=== PATIENT | female | born 1945 | race Caucasian/White ===

== ENCOUNTER 2019-10-16 09:02 | Outpatient (CLI) | payer MEDICARE, SELFPAY ==
--- NOTE | 2019-10-16 09:12 | EST_ITS ---
Patient Info Name: Carolina Cruz Age: 74 years : 1945 Gender: Female Ht: 62 in Wt: 135 lbs BSA: 1.65 m2 HR: 70 bpm Technical Quality: Good Exam Date: 10/16/2019 9:33 AM Exam Location: [facility] Patient Status: Outpatient Admit Date: 10/16/2019 Staff Ordering Physician: Tiffany Terrazas NP Fur Buyer: Lanie Kohli RDCS Attending Provider: Tiffany Terrazas NP Referring Physician: Mk SORIANO; Exercise Technologist: Khushboo Simons RDCS Exercise Physician: Kenny Tariq DO Exam Type: CA stress echo Study Info Indications R55 - Syncope and collapse Treadmill exercise stress echocardiogram is performed. Summary 1. 1. Negative Kash exercise stress test for ischemic ST changes by ECG criteria. However, achieved only 70% MPHR for age group which reduces sensitivity of the test. 2. 2. Reduced functional capacity, achieving 5 METs of workload. 3. 3. Appropriate HR response to exercise. 4. 4. Appropriate HR recovery at 1 minute post exercise. 5. 5. Negative stress echocardigram for ischemia by wall motion analysis. 6. 6. Patient informed of the above results. Stress Echo Findings Left Ventricle Appropriate increase in LV endocadial thickening with systole. Appropriate augmentation of contractility with systole. No wall motion abnormality. Left Ventricle Normal LV systolic function, no wall motion abnormality. Protocol: Kash Stress ECG Details Stage: REST Duration (min): 7 min : 51 sec Speed (mph): 0.0 Grade (%): 0 HR (bpm): 73 SBP (mmHg): 135 DBP (mmHg): 62 METS: --- Stage: REST Duration (min): 46 min : 6 sec Speed (mph): 0.0 Grade (%): 0 HR (bpm): 91 SBP (mmHg): 135 DBP (mmHg): 62 METS: --- Stage: STAGE 1 Duration (min): 1 min : 0 sec Speed (mph): 1.7 Grade (%): 10 HR (bpm): 91 SBP (mmHg): 135 DBP (mmHg): 62 METS: --- Stage: STAGE 1 Duration (min): 2 min : 0 sec Speed (mph): 1.7 Grade (%): 10 HR (bpm): 94 SBP (mmHg): 135 DBP (mmHg): 62 METS: --- Stage: STAGE 1 Duration (min): 3 min : 0 sec Speed (mph): 1.7 Grade (%): 10 HR (bpm): 93 SBP (mmHg): 125 DBP (mmHg): 67 METS: --- Stage: STAGE 2 Duration (min): 0 min : 22 sec Speed (mph): 0.0 Grade (%): 0 HR (bpm): 99 SBP (mmHg): 125 DBP (mmHg): 67 METS: --- Stage: RECOVERY Duration (min): 0 min : 38 sec Speed (mph): 0.0 Grade (%): 0 HR (bpm): 94 SBP (mmHg): 125 DBP (mmHg): 67 METS: --- Stage: RECOVERY Duration (min): 1 min : 38 sec Speed (mph): 0.0 Grade (%): 0 HR (bpm): 76 SBP (mmHg): 124 DBP (mmHg): 57 METS: --- Stage: RECOVERY Duration (min): 2 min : 38 sec Speed (mph): 0.0 Grade (%): 0 HR (bpm): 75 SBP (mmHg): 124 DBP (mmHg): 57 METS: --- Stage: RECOVERY Duration (min): 3 min : 4 sec Speed (mph): 0.0 Grade (%): 0 HR (bpm): 77 SBP (mmHg): 121 DBP (mmHg): 55 METS: --- Rest
== END 2019-10-16 09:03 | disposition home or self-care (01) ==
LOC: ANHCARD 09:06
PROVIDERS: PCP Family Medicine; Visit Provider Nurse Practitioner
DX: R55 Syncope and collapse (principal)
CPT/HCPCS: 93351

== ENCOUNTER 2020-02-12 12:15 | Observation (INO) | payer MEDICARE, SELFPAY ==
[2020-02-12] VITALS (65 sets, daily range): BP systolic 112–143; BP diastolic 47–108; PULSE 79–128; RESP 13–27; TEMP 36.1–36.9; O2SAT 94–100; BMI 23.1
--- NOTE | ~2020-02-12 | XR_ITS ---
EXAMINATION: XR hip LT 2V w AP pelvis EXAM DATE: 02/12/2020 13:02 INDICATION: Fall, left hip pain. TECHNIQUE: Left hip frontal, 'frog leg' projections for interpretation. Frontal projection pelvis. There is no prior study for comparison. FINDINGS: Smooth left hip femoral head contour, no radiographic evidence of avascular necrosis. Ther e are no acute pelvic, left hip fractures or dislocations identified. There is no subcutaneous gas. The soft tissue is unremarkable. There are no radiopaque foreign bodies. There is mild symmetric bilateral hip primary osteoarthritis. IMPRESSION: No acute osseous findings. Reviewed, dictated and finalized at location B. START TEACHER IMPRESSION: No acute osseous findings.
--- NOTE | ~2020-02-12 | CT_ITS ---
EXAMINATION: CT thoracic lumbar wo con EXAM DATE: 02/12/2020 12:54 INDICATION: Fall, mid and low back pain. TECHNIQUE: Spiral CT thoracolumbar spine was performed without contrast. Axial, coronal and sagittal images of the thoracic spine were reviewed. Axial, coronal and sagittal images of the lumbar spine we re reviewed. The dose-length product (DLP) for this examination was 913.63 mGy-cm. The exposure was tailored according to patient size (auto mA exposure control), and iterative reconstruction (ASIR) wa s used as additional dose reduction technique. There is no prior study for comparison. FINDINGS: THORACIC SPINE: Minimal thoracolumbar scoliosis. Patient has diffuse idiopathic skeletal hyperostosis (DISH). There are no acute fractures identified. The vertebral bodies are aligned in the AP dimensio n. Mild diffuse thoracic facet arthropathy. There are cholecystectomy clips. LUMBAR SPINE: There is no evidence of acute lumbar fracture. There is no disc space widening or tr aumatic vertebral body subluxation suspected. Paraspinal soft tissue is unremarkable. The vertebral bodies are aligned in the AP dimension. Moderate mid and lower lumbar facet arthropathy. Sacroiliac joints are intact. No spondylolysis. Moderate disc disease at L4-5, mild to moderate at the other abram mbar levels. A detailed level by level evaluation of spondylosis can be added as addendum if requeste d. IMPRESSION: 1. No acute thoracolumbar findings. 2. Mid thoracic diffuse idiopathic skeletal hyperostosis. 3. Up to moderate lumbar spondylosis. Reviewed, dictated and finalized at location B. N WAVE TECHNICIAN
--- NOTE | ~2020-02-12 | XR_ITS ---
EXAMINATION: XR chest 1V portable DATE: 02/12/2020 16:09 INDICATION: Recent falls. Low back pain. TECHNIQUE: A single frontal view of the chest was obtained. COMPARISON: CT 02/12/20 FINDINGS: The chest demonstrates clear lungs without pneumonia, pleural effusion, or pneumothorax. Th e heart size is normal. Surgical clips in the right upper quadrant are likely from cholecystectomy. IMPRESSION: 1. No acute cardiopulmonary disease. Reviewed, dictated and finalized at location A. TRICAL SYSTEMS DESIGN ENGINEER
--- NOTE | ~2020-02-12 | XR_ITS ---
EXAMINATION: XR wrist LT 2V DATE: 02/13/2020 10:12 INDICATION: Left wrist pain. Fall 6 days ago. TECHNIQUE: 2 views of left wrist were obtained. COMPARISON: None. FINDINGS: Bone alignment is normal. No fracture. There is mild osteoarthritis of first carpometacarpa l joint and first interphalangeal joint. IMPRESSION: 1. Mild polyarticular osteoarthritis. Reviewed, dictated and finalized at location A. MAKER
--- NOTE | ~2020-02-12 | US_ITS ---
EXAMINATION: US venous doppler UE DATE: 02/15/2020 11:30 INDICATION: Left upper limb swelling TECHNIQUE: Grayscale images without and with compression and Doppler images of the left upper extremi ty veins were obtained. COMPARISON: None. FINDINGS: There is noncompressible thrombus filling the left cephalic vein at the distal upper arm and proximal forearm the cephalic vein at the proximal upper arm and mid forearm remain patent and compressible. The left internal jugular vein, subclavian vein, axillary vein, brachial vein, basilic vein, radial vein, and ulnar vein are patent. IMPRESSION: 1. Thrombosis of the left cephalic vein both immediately above and below the elbow Findings were disc ussed with Elisabeth, the nurse caring for the patient, at 11:35 AM. Reviewed, dictated and finalized at location A. [employer] IMPRESSION: 1. Thrombosis of the left cephalic vein both immediately above and below the el bow Findings were discussed with Elisabeth, the nurse caring for the patient, at 11 :35 AM.
--- NOTE | ~2020-02-12 | CT_ITS ---
EXAMINATION: CT brain wo con EXAM DATE: 02/12/2020 12:54 INDICATION: Syncope. Fall. TECHNIQUE: Spiral CT of the head was performed without contrast. Axial, coronal and sagittal images were reviewed. The dose-length product (DLP) for this examination was 605.33 mGy-cm. The exposure w as tailored according to patient size, and iterative reconstruction (ASIR) was used as additional dos e reduction technique. There is no prior study for comparison. FINDINGS: There is no acute intraparenchymal hemorrhage. No evidence of intraparenchymal brain mass lesion. No evidence of acute infarction. Please note that initial head CT has limited sensitivity f or small or acute infarctions. There is moderate periventricular and subcortical hypodensity, nonspec ific but probably related to small vessel ischemic disease. There is mild prominence of the sulci a nd ventricles related to cerebral atrophy. There is intracranial carotid arteriosclerosis. There a re no extra-axial collections. There is no mass effect or midline shift. The orbits are unremarkabl e. Soft tissue is unremarkable. The visualized sinuses and mastoid air cells are well aerated. Sm all calcified meningioma overlying the right frontal lobe. IMPRESSION: 1. No acute intracranial findings. 2. Chronic age related findings. . Reviewed, dictated and finalized at location B. NG EXAMINER
--- NOTE | ~2020-02-12 | XR_ITS ---
EXAMINATION: XR hip RT 1V INDICATION: Right hip pain after fall TECHNIQUE: Single AP view of the right hip is obtained. COMPARISON: 02/12/2020 FINDINGS: Bone alignment is normal. No fracture is identified. The soft tissues are unremarkable. IMPRESSION: 1. No evidence of displaced rib fracture on this limited single view examination. Reviewed, dictated and finalized at location A. LSTERY SEWER IMPRESSION: 1. No evidence of displaced rib fracture on this limited single view examjeanine alicea
--- NOTE | ~2020-02-12 | XR_ITS ---
EXAMINATION: XR ankle LT 2V DATE: 02/15/2020 14:21 INDICATION: Left ankle pain. Fall. TECHNIQUE: 2 views of left ankle were obtained. COMPARISON: None. FINDINGS: Bone alignment is normal. No fracture. There is mild ankle joint osteoarthritis. There are enthesophytes at the posterior and plantar aspects of calcaneal tuberosity. Ankle soft tissue swellin g is noted. IMPRESSION: 1. Mild ankle joint osteoarthritis. Reviewed, dictated and finalized at location B. ITY BAGGER
--- NOTE | 2020-02-12 12:34 | ECG_ITS ---
Measurements Intervals [place] Rate: 104 P: -28 IN: 124 QRS: 69 QRSD: 92 T: 7 QT: 345 QTc: 456 Interpretive Statements SINUS TACHYCARDIA MINIMAL Q WAVES- INFERIOR LEADS BORDERLINE ST-T WAVE ABNORMALITY- INFERIOR LEADS BASELINE WANDER- I, AVL, AVF, V5 BORDERLINE ECG Electronically Signed On 02-12-2020 15:48:32 FUNDS DEVELOPMENT DIRECTOR by Kenny Tariq D.O.
--- NOTE | 2020-02-12 12:35 | ED.FALL ---
HPI - Fall General Chief Complaint: Fall Stated Complaint: right hip pain Time Seen by Provider: 02/12/20 12:26 Source: patient Mode of arrival: EMS Limitations: no limitations History of Present Illness HPI Narrative: Patient is a 74-year-old female brought in by EMS after being found on the floor by daughter. Patient states that she had a ground-level fall 3 days ago and was unable to get up, had been laying on the floor since then until she was found by her daughter. Patient states that she could have passed out and fell, she cannot recall. Patient complaining of mid back pain which she states is nothing new. Patient also complaining of left hip pain. Patient denies any head, neck, chest, abdomen or any other extremity pain/injury. Related Data Home Medications Medication Instructions Recorded Confirmed levothyroxine 25 mcg tablet 37.5 mcg PO DAILY tablet 01/25/20 01/25/20 Allergies Allergy/AdvReac Type Severity Reaction Status Date / Time No Known Allergies Allergy Unverified 01/25/20 15:18 Review of Systems Review of Systems: All systems reviewed & are unremarkable except as noted in HPI and below Constitutional: Constitutional: Denies body ache(s), Denies chills, Denies excessive sweating, Denies fatigue, Denies fever(s), Denies headache(s), Denies lethargy and Denies weight loss Eyes: Eyes: Denies blurry vision, Denies change in vision and Denies loss of vision ENT: Denies dizziness, Denies ear discharge, Denies headache(s), Denies lip swelling, Denies epistaxis, Denies nasal congestion, Denies neck pain, Denies throat swelling and Denies tongue swelling Cardiovascular: Cardiovascular: Denies chest pain, Denies chest pain at rest, Denies chest pain with activity, Denies diaphoresis, Denies rapid heart rate, Denies edema, Denies irregular heart rhythm, Denies lightheadedness, Denies palpitations, Denies dyspnea and Denies dyspnea on exertion Respiratory: Respiratory: Denies chest congestion, Denies cough, Denies hemoptysis, Denies dyspnea and Denies dyspnea on exertion Gastrointestinal: Gastrointestinal: Denies abdominal pain, Denies melena, Denies hematochezia, Denies diarrhea, Denies nausea, Denies vomiting and Denies hematemesis Musculoskeletal: Musculoskeletal: Denies abnormal gait, Denies deformity, Denies joint swelling, Denies limited range of motion, Denies neck pain and Denies numbness Neurologic: Denies Abnormal speech present, Denies abnormal gait, Denies confusion, Denies dizziness, Denies headache(s), Denies focal weakness, Denies loss of vision, Denies numbness, Denies Other visual disturbances and Denies Sensory deficit (Neuro) Psychiatric: Psychiatric: Denies confusion, Denies depression, Denies auditory hallucinations, Denies homicidal ideation and Denies suicidal ideation Endocrine: Endocrine: Denies cold intolerance, Denies excessive sweating, Denies fatigue, Denies heat intolerance and Denies palpitations Hematologic/Lymphatic: Hematologic/Lymphatic: Denies easy bleeding and Denies easy bruising Allergic/Immunologic: Allergic/Immunologic: Denies lip swelling, Denies throat swelling and Denies tongue swelling PMFSH Past Medical History Medical History (Updated 02/12/20 @ 17:13 by Dirk Anne MD) 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
[2020-02-12] MEDS: SODIUM CHLORIDE 0.9% IV 1,000 ML 999 ML IV CONT (13:00)
--- NOTE | 2020-02-12 13:14 | PC.NURSE ---
patient back from CT. EKG done.
[2020-02-12 13:49] LABS: Basophils Percent Auto 0.2 % (0.2-1.2); Eosinophils Percent Auto 0.1 % (0-4.4); Hematocrit 36.8 % (37.0-47.0); Hemoglobin 11.3 g/dL (12.0-15.0); Immature Granulocyte Absolute 0.16 K/mm3 (0.00-0.031); Immature Granulocyte Percent A 0.7 % (0-0.5); Lymphocytes Absolute Auto 0.89 K/mm3 (0.9-3.2); Lymphocytes Percent Auto 3.7 % (18.3-44.2); Mean Corpuscular HGB Conc 30.7 g/dl (32-36); Mean Corpuscular Hemoglobin 24.7 pg (26-34); Mean Corpuscular Volume 80.3 fl (80-100); Mean Platelet Volume 9.2 fl (7.4-10.4); Monocytes Absolute Auto 0.8 K/mm3 (0.1-0.6); Monocytes Percent Auto 3.5 % (2.6-8.5); Neutrophils Absolute Auto 22.1 K/mm3 (1.3-6.7); Neutrophils Percent Auto 91.8 % (45.5-73.1); Platelet Count Result 485 k/mm3 (150-375); Red Blood Count 4.58 M/mm3 (4.2-5.4); Red Cell Distribution Width 14.8 % (11.5-14.5); White Blood Count 24.1 K/mm3 (4.5-10.0)
[2020-02-12 13:58] LABS: INR 1.3; Prothrombin Time 16.6 Seconds (11.1-14.7)
[2020-02-12 13:59] LABS: Alanine Aminotransferase 11 U/L (4-35); Albumin Level 3.4 g/dL (3.5-5.1); Alkaline Phosphatase 110 U/L (38-126); Anion Gap 10 mmol/L (8-16); Aspartate Amino Transferase 15 U/L (14-36); Bilirubin,Total 0.4 mg/dL (0.2-1.3); Blood Urea Nitrogen 25 mg/dL (7-17); Calcium 8.6 mg/dL (8.4-10.2); Carbon Dioxide 27 mmol/L (22-30); Chloride 103 mmol/L (98-107); Creatine Kinase 47 U/L (30-135); Estimated CRCL calculation 54 ml/min; Estimated Glomerular Filt Rate > 60; Glucose 113 mg/dL (65-105); Partial Thromboplastin Time 46.1 SECONDS (22.3-36.8); Potassium 3.7 mmol/L (3.4-5.0); Sodium 140 mmol/L (137-145)
[2020-02-12 14:11] LABS: Troponin I < 0.012 ng/mL (0.000-0.034)
[2020-02-12 14:13] LABS: Add Urine Microscopic? YES; Appearance Urine Cloudy (Clear); Bacteria Urine Trace /hpf; Bilirubin Urine Negative (Negative); Blood Urine Negative (Negative); Color Urine Yellow (Yellow); Glucose Urine UA Negative (Negative); Ketones Urine 2+ mg/dL (Negative); Leukocyte Esterase Ur Negative LEU/UL (Negative); Mucus Urine Heavy /lpf; Nitrate Urine Negative (Negative); Protein Urine 2+ mg/dL (Negative); Squamous Epithelial Cell Urine Rare /hpf (Few)
[2020-02-12 14:14] LABS: Specific Grav Ur 1.033 (1.001-1.035)
--- NOTE | 2020-02-12 19:40 | PC.NURSE ---
resting on stretcher. some confusion at times. reoriented. ice water and jose crackers given.
--- NOTE | 2020-02-12 20:11 | PC.NURSE ---
patient has bed assigned upstairs. will call to give report.
--- NOTE | 2020-02-12 20:23 | PC.NURSE ---
report given to RN on 2nd floor. patient transferred to 250 via stretcher and medical coding technician.
--- NOTE | 2020-02-12 20:43 | ADMGEN ---
This patient, Carolina Cruz, was admitted to Medical Room 250-01. Patient/family oriented to hospital policies and general routines including ID bracelet, bed and alarms, visiting hours, pain management, procedures, bathroom and other care routines, personal items, smoking policy, room service/diet, and visiting hours. Information on how to activate the Rapid Response Team has been discussed. Patient/Family are encouraged to report perceived risks to care and to ask questions if they do not understand what they are told or what they should do.
[2020-02-12] MEDS: LACTATED RINGERS 1,000 ML 90 ML IV CONT (20:54)
--- NOTE | 2020-02-12 23:41 | PM.IMHP ---
H&P: HPI History of Present Illness Date/Time: 02/12/20 23:41 Chief complaint: SYNCOPE Narrative: Carolina Cruz is a 74 year old female who has a history of dementia and lives home alone. She tells me that her daughter lives next door and typically helps her out but her daughter has been under the weather for the last week. She stated that the daughter has the flu that is been going around every is getting. The patient tells me that she herself is not sick. She denies any fever chills. She is able to give a little bit of a history but not a lot she is a poor historian. Having a history of having dementia and is aware of most of her medicine but was not sure about the Aricept. The patient was brought into the emergency room via EMS because the patient was found on the floor by her daughter. The patient stated that she had a ground level fall about 3 days ago was not able to get up. She had been lying on the floor since then since she could not be found by others. She does not have a cellphone that she carries with her or on-call alert. The patient was complaining of some mid lower back pain but she states that this is chronic. She is complaining of left hip pain when she was in the emergency room but when I saw her she was complaining of right hip pain. She has not been able to eat or drink are take her medications. She did not take anything for the discomfort. CK was only 47 and troponin was negative. The patient appears to be dehydrated and was started on IV fluids. Patient was empirically started on Rocephin for possible UTI. No nitrates. Leukocyte esterase negative. Chest x-ray was read as no acute cardiopulmonary disease. Read as no acute osseous findings. No acute thoracolumbar findings. Midthoracic diffuse idiopathic skeletal hyper ptosis. Up to moderate lumbar spondylosis. Head CT was read as no acute intracranial findings chronic age-related findings per Radiology. Patient admitted for observation 02/12/2020 Review of Systems Review of Systems: ROS unobtainable: Yes unobtainable due to mental status (She is a poor historian) Constitutional: Constitutional: Reports as per HPI and Reports no additional constitutional complaints Eyes: Eyes: Reports as per HPI and Reports no additional eye complaints ENT: Reports system reviewed and no additional complaints, except as documented and Reports Normal hearing present Cardiovascular: Cardiovascular: Reports no additional cardiovascular complaints Respiratory: Respiratory: Reports no additional respiratory complaints and Reports no additional respiratory complaints Gastrointestinal: Gastrointestinal: Reports as per HPI and Reports no additional gastrointestinal complaints Musculoskeletal: Musculoskeletal: Reports no additional musculoskeletal complaints Integumentary/Breasts: Skin/Breast: Reports system reviewed and no additional complaints, except as docu and Reports as per HPI Neurologic: Reports system reviewed and no additional complaints, except as documented, Reports as per HPI and Reports Normal hearing present Psychiatric: Psychiatric: Reports no additional psychiatric complaints and Reports as per HPI Endocrine: Endocrine: Reports no additional endocrine complaints Hematologic/Lymphatic: Hematologic/Lymphatic: Reports no additional hematologic/lymphatic complaints Allergic/Immunologic: Allergic/Immunologic: Reports no additional allergic/immunologic complaints [facility] Past Medical History Medical History (Updated 02/13/20 @ 00:00 by Beti Purcell NP) 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
[2020-02-13] VITALS (8 sets, daily range): BP systolic 120–135; BP diastolic 50–60; PULSE 81–94; RESP 16–18; TEMP 36.2–37; O2SAT 98–99
[2020-02-13] MEDS: LEVOTHYROXINE SODIUM 12.5 MCG TABLET PO (05:57)
[2020-02-13] MEDS: ACETAMINOPHEN 325 MG TABLET 650 MG PO ×2 (06:01→16:53)
[2020-02-13] MEDS: LEVOTHYROXINE SODIUM 25 MCG TABLET PO (06:05)
[2020-02-13 06:15] LABS: Basophils Percent Auto 0.1 % (0.2-1.2); Eosinophils Absolute Auto 0.1 K/mm3 (0-0.3); Eosinophils Percent Auto 0.7 % (0-4.4); Hematocrit 32.8 % (37.0-47.0); Immature Granulocyte Absolute 0.14 K/mm3 (0.00-0.031); Immature Granulocyte Percent A 0.9 % (0-0.5); Lymphocytes Absolute Auto 1.38 K/mm3 (0.9-3.2); Lymphocytes Percent Auto 8.5 % (18.3-44.2); Mean Corpuscular HGB Conc 30.5 g/dl (32-36); Mean Corpuscular Hemoglobin 24.9 pg (26-34); Mean Corpuscular Volume 81.6 fl (80-100); Mean Platelet Volume 9.1 fl (7.4-10.4); Monocytes Absolute Auto 0.9 K/mm3 (0.1-0.6); Monocytes Percent Auto 5.3 % (2.6-8.5); Neutrophils Absolute Auto 13.6 K/mm3 (1.3-6.7); Neutrophils Percent Auto 84.5 % (45.5-73.1); Platelet Count Result 423 k/mm3 (150-375); Red Blood Count 4.02 M/mm3 (4.2-5.4); Red Cell Distribution Width 14.7 % (11.5-14.5); White Blood Count 16.2 K/mm3 (4.5-10.0)
[2020-02-13 06:47] LABS: Alanine Aminotransferase 10 U/L (4-35); Albumin Level 2.9 g/dL (3.5-5.1); Alkaline Phosphatase 95 U/L (38-126); Aspartate Amino Transferase 18 U/L (14-36); Bilirubin,Total 0.3 mg/dL (0.2-1.3); Blood Urea Nitrogen 16 mg/dL (7-17); Calcium 8.3 mg/dL (8.4-10.2); Carbon Dioxide 27 mmol/L (22-30); Creatine Kinase 91 U/L (30-135); Estimated CRCL calculation 63 ml/min; Estimated Glomerular Filt Rate > 60; Glucose 100 mg/dL (65-105); Magnesium 2.2 mg/dL (1.6-2.3)
[2020-02-13 07:17] LABS: Anion Gap 6 mmol/L (8-16); CRP 25.2 mg/dL (<1.0); Chloride 105 mmol/L (98-107); Potassium 3.6 mmol/L (3.4-5.0); Sodium 138 mmol/L (137-145)
[2020-02-13] MEDS: LACTATED RINGERS 1,000 ML 90 ML IV CONT ×2 (08:03→20:56)
[2020-02-13] MEDS: PANTOPRAZOLE 40 MG TABLET PO ×2 (08:07→16:46)
[2020-02-13] MEDS: DONEPEZIL HCL 5 MG TABLET PO (08:07)
[2020-02-13] MEDS: LORATADINE 10 MG TABLET PO (08:07)
[2020-02-13 08:47] LABS: Glucose Point of Care 89 (65-105)
[2020-02-13] MEDS: FERROUS SULFATE LIQUID 325 MG/7.4 ML ELIXIR 150 MG PO (09:13)
--- NOTE | 2020-02-13 09:51 | PM.IMPN ---
Progress Note: A&P Assessment and Plan (1) Fall: Qualifiers: Encounter type: initial encounter Qualified Code(s): W19.XXXA - Unspecified fall, initial encounter Code(s): W19.XXXA - Unspecified fall, initial encounter Status: Acute Assessment and Plan: Patient was found down on the ground by her daughter. The patient reported being on the ground for 3 days. She is unable to recall the mechanics of this fall. She denies any symptoms prior to falling. CK is within normal limits. Head CT negative for any acute findings. She complained of bilateral hip pain, however left hip and pelvis x-ray and right hip x-ray were negative for any acute findings. Fall precautions in place Left wrist x-ray has been ordered due to complaints of left wrist pain and slight dorsal angulation and is pending PT and OT to evaluate patient; input is appreciated. (2) Generalized weakness: Code(s): R53.1 - Weakness Status: Acute Assessment and Plan: Likely due to overall deconditioning. More than likely contributed to fall as above. TSH is within normal limits. PT and OT as above Care coordination is following for possible SNF placement. Check B12 and folate (3) Dementia: Code(s): F03.90 - Unspecified dementia without behavioral disturbance Status: Chronic Assessment and Plan: Patient is pleasantly confused. Continue donepezil (4) GERD without esophagitis: Code(s): K21.9 - Gastro-esophageal reflux disease without esophagitis Status: Chronic Assessment and Plan: No symptoms at this time Continue omeprazole. (5) Essential (primary) hypertension: Code(s): I10 - Essential (primary) hypertension Status: Chronic Assessment and Plan: BP reviewed and is stable at 133/50. She is not on any antihypertensives. Monitor BP daily. (6) Hypothyroid: Code(s): E03.9 - Hypothyroidism, unspecified Status: Chronic Assessment and Plan: TSH is wnl. Continue levothyroxine (7) Leukocytosis: Qualifiers: Leukocytosis type: unspecified Qualified Code(s): D72.829 - Elevated white blood cell count, unspecified Code(s): D72.829 - Elevated white blood cell count, unspecified Status: Acute Assessment and Plan: At presentation, WBC was 24.1. This may be reactive secondary to trauma from fall. There was concern for UTI although UA was not very convincing. She received 1x dose IV Rocephin on 02/12/20. She is afebrile. No other signs or symptoms to suggest infection. No steroids. WBC improved to 16.2 today. Urine culture has been ordered and is pending. Monitor CBC with diff. Subjective Date/time seen: 02/13/20 09:51 Interval history: date of service: 02/13/2020 Carolina Cruz is a 74 year old female with a history of dementia, HTN, HLD, and hypothyroidism is seen in follow-up after suffering a fall at home. She is quite forgetful and is difficult to obtain a thorough history. She is unclear where she fell or the mechanics of the fall. She does not recall having any symptoms prior to falling. She is complaining of pain in her legs, but states that that is chronic. She had point tenderness of the left wrist when palpated. Yesterday she was noted to have point tenderness of the bilateral hips, but this is not noted today. She denies any hip pain. She has not been up yet. She was beginning therapy following my visit. She denies headache. She denies nausea, vomiting, fever, chills, abdominal pain, dizziness, lightheadedness, dysuria, hematuria, suprapubic discomfort, urgency, frequency, constipation, or diarrhea. Her appetite has been good and she ate a good breakfast this morning. She is not able to recall why she is here in the hospital. Review of Systems Review of Systems: All systems reviewed & are unremarkable except as noted in HPI and below
[2020-02-13 09:57] LABS: Free T4 Free Thyroxine Reflex 1.16 ng/dL (0.78-2.19)
[2020-02-13 10:38] LABS: Total Triiodothyronine (T3) 0.86 NG/ML (0.97-1.69)
[2020-02-13] MEDS: diphenhydrAMINE HCl INJ 50 MG/ML VIAL 25 MG IV PUSH (19:48)
[2020-02-13] MEDS: HYDROcodone/acetaminophen (*CRX) 5-325 MG TABLET 1 TAB PO (20:55)
[2020-02-14] VITALS: PULSE 73
[2020-02-14 04:00] VITALS: PULSE 80
[2020-02-14 05:51] VITALS: BP 107/48; PULSE 86; RESP 16; TEMP 36.7; O2SAT 100
[2020-02-14 06:10] LABS: Basophils Percent Auto 0.2 % (0.2-1.2); Eosinophils Absolute Auto 0.2 K/mm3 (0-0.3); Eosinophils Percent Auto 1.4 % (0-4.4); Hematocrit 31.2 % (37.0-47.0); Hemoglobin 9.7 g/dL (12.0-15.0); Immature Granulocyte Absolute 0.13 K/mm3 (0.00-0.031); Lymphocytes Absolute Auto 1.74 K/mm3 (0.9-3.2); Lymphocytes Percent Auto 13.3 % (18.3-44.2); Mean Corpuscular HGB Conc 31.1 g/dl (32-36); Mean Corpuscular Hemoglobin 25.2 pg (26-34); Mean Platelet Volume 9.6 fl (7.4-10.4); Monocytes Absolute Auto 0.8 K/mm3 (0.1-0.6); Monocytes Percent Auto 6.1 % (2.6-8.5); Neutrophils Absolute Auto 10.2 K/mm3 (1.3-6.7); Platelet Count Result 425 k/mm3 (150-375); Red Blood Count 3.85 M/mm3 (4.2-5.4); Red Cell Distribution Width 14.8 % (11.5-14.5)
[2020-02-14 06:27] LABS: Anion Gap 5 mmol/L (8-16); Blood Urea Nitrogen 13 mg/dL (7-17); Calcium 8.1 mg/dL (8.4-10.2); Carbon Dioxide 31 mmol/L (22-30); Chloride 104 mmol/L (98-107); Creatine Kinase 36 U/L (30-135); Estimated CRCL calculation 54 ml/min; Estimated Glomerular Filt Rate > 60; Glucose 104 mg/dL (65-105); Potassium 3.7 mmol/L (3.4-5.0); Sodium 140 mmol/L (137-145)
[2020-02-14] MEDS: LEVOTHYROXINE SODIUM 12.5 MCG TABLET PO (06:37)
[2020-02-14] MEDS: LEVOTHYROXINE SODIUM 25 MCG TABLET PO (06:37)
[2020-02-14] MEDS: LACTATED RINGERS 1,000 ML 90 ML IV CONT (06:40)
[2020-02-14 07:28] LABS: Folic Acid 3.6 ng/mL (2.76->20)
[2020-02-14] MEDS: DONEPEZIL HCL 5 MG TABLET PO (08:19)
[2020-02-14] MEDS: LORATADINE 10 MG TABLET PO (08:19)
[2020-02-14] MEDS: PANTOPRAZOLE 40 MG TABLET PO ×2 (08:19→16:56)
[2020-02-14] MEDS: FERROUS SULFATE LIQUID 325 MG/7.4 ML ELIXIR 150 MG PO (08:23)
[2020-02-14] MEDS: ACETAMINOPHEN 325 MG TABLET 650 MG PO ×2 (09:58→15:38)
--- NOTE | 2020-02-14 13:26 | PM.IMPN ---
Progress Note: A&P Assessment and Plan (1) Fall: Qualifiers: Encounter type: initial encounter Qualified Code(s): W19.XXXA - Unspecified fall, initial encounter Code(s): W19.XXXA - Unspecified fall, initial encounter Status: Acute Assessment and Plan: Patient was found down on the ground by her daughter. The patient reported being on the ground for 3 days, although this information has not been confirmed. She is unable to recall the mechanics of the fall. She denies any symptoms prior to falling. CK is within normal limits. Head CT negative for any acute findings. She complained of bilateral hip pain, however left hip and pelvis x-ray and right hip x-ray were negative for any acute findings. Left wrist x-ray showed mild OA with no acute findings. Fall precautions in place PT and OT to evaluate patient; input is appreciated. Care coordination is following. It appears that patient and family wish to pursue continued therapy at SNF. Placement pending. (2) Generalized weakness: Code(s): R53.1 - Weakness Status: Acute Assessment and Plan: Likely due to overall deconditioning. More than likely contributed to fall as above. TSH is within normal limits. B12 and folate wnl. PT and OT as above Care coordination is following for possible SNF placement. (3) Dementia: Code(s): F03.90 - Unspecified dementia without behavioral disturbance Status: Chronic Assessment and Plan: Patient is pleasantly confused. A&Ox4 today with some prompting. Continue donepezil (4) GERD without esophagitis: Code(s): K21.9 - Gastro-esophageal reflux disease without esophagitis Status: Chronic Assessment and Plan: No symptoms at this time Continue omeprazole. (5) Essential (primary) hypertension: Code(s): I10 - Essential (primary) hypertension Status: Chronic Assessment and Plan: BP reviewed and is stable at 107/48. She is not on any antihypertensives. Monitor BP daily. (6) Hypothyroid: Code(s): E03.9 - Hypothyroidism, unspecified Status: Chronic Assessment and Plan: TSH is wnl. Continue levothyroxine (7) Leukocytosis: Qualifiers: Leukocytosis type: unspecified Qualified Code(s): D72.829 - Elevated white blood cell count, unspecified Code(s): D72.829 - Elevated white blood cell count, unspecified Status: Acute Assessment and Plan: At presentation, WBC was 24.1. This may be reactive secondary to trauma from fall. There was concern for UTI although UA was not very convincing. She received 1x dose IV Rocephin on 02/12/20. She is afebrile. No other signs or symptoms to suggest infection. No steroids. WBC improved to 13.0 today. Urine culture has been ordered and is pending. Monitor CBC with diff. Additional Plan Patient is being tested for COVID-19 for SNF placement. She is asymptomatic and does not require isolation precautions. Subjective Date/time seen: 02/14/20 13:26 Interval history: Date of service: 02/14/2020 Carolina Cruz is a 74 year old female with a history of dementia, HTN, HLD, and hypothyroidism who is seen in follow-up after suffering a fall at home. She is feeling better today. She complains of mild pain in her right hip. She also has mild left wrist pain. Otherwise, she is feeling well. She has been ambulating with assistance and feels that she is doing well. She denies any urinary symptoms. Her last BM was 2 days ago. Her appetite is good. She received information today that her daughter, who had been caring for her, tested positive for COVID. She has no symptoms of shortness of breath, cough, anosmia, dysguesia, fevers, or chills. Review of Systems Review of Systems: All systems reviewed & are unremarkable except as noted in HPI and below Exam Narrative: Exam Narrative: Ms. Cruz is a well-nourished,
[2020-02-14 14:00] VITALS: BP 113/43; PULSE 80; RESP 16; TEMP 36.3; O2SAT 100
[2020-02-14 21:18] LABS: SARS-CoV-2 RNA PCR Negative
[2020-02-14 22:00] VITALS: BP 128/55; PULSE 84; RESP 16; TEMP 37; O2SAT 99
[2020-02-15 00:53] LABS: SARS-CoV-2 RNA PCR Negative
[2020-02-15 05:35] LABS: Hematocrit 31.3 % (37.0-47.0); Hemoglobin 9.5 g/dL (12.0-15.0); Mean Corpuscular HGB Conc 30.4 g/dl (32-36); Mean Corpuscular Volume 82.4 fl (80-100); Mean Platelet Volume 9.6 fl (7.4-10.4); Platelet Count Result 392 k/mm3 (150-375); White Blood Count 10.6 K/mm3 (4.5-10.0)
[2020-02-15 05:53] LABS: Anion Gap 4 mmol/L (8-16); Blood Urea Nitrogen 11 mg/dL (7-17); Calcium 7.8 mg/dL (8.4-10.2); Carbon Dioxide 32 mmol/L (22-30); Chloride 103 mmol/L (98-107); Estimated CRCL calculation 77 ml/min; Estimated Glomerular Filt Rate > 60; Glucose 100 mg/dL (65-105); Potassium 3.5 mmol/L (3.4-5.0); Sodium 139 mmol/L (137-145)
[2020-02-15 06:00] VITALS: BP 113/53; PULSE 82; RESP 16; TEMP 37.1; O2SAT 97
[2020-02-15] MEDS: LEVOTHYROXINE SODIUM 25 MCG TABLET PO (07:37)
[2020-02-15] MEDS: LEVOTHYROXINE SODIUM 12.5 MCG TABLET PO (07:38)
[2020-02-15] MEDS: HYDROcodone/acetaminophen (*CRX) 5-325 MG TABLET 1 TAB PO ×2 (08:50→16:52)
[2020-02-15] MEDS: LORATADINE 10 MG TABLET PO (08:51)
[2020-02-15] MEDS: PANTOPRAZOLE 40 MG TABLET PO ×2 (08:51→16:52)
[2020-02-15] MEDS: FERROUS SULFATE LIQUID 325 MG/7.4 ML ELIXIR 150 MG PO (08:51)
[2020-02-15] MEDS: DONEPEZIL HCL 5 MG TABLET PO (08:51)
[2020-02-15 09:53] VITALS: O2SAT 93
--- NOTE | 2020-02-15 10:00 | PC.NURSE ---
Notified Nicol AMIN that patient's left arm is pink, warm to touch and very edematous. She states she will assess patient. Also notified her that patient c/o left ankle pain whenever ankle is touched.
[2020-02-15 14:00] VITALS: BP 129/57; PULSE 88; RESP 18; TEMP 36.7; O2SAT 100
[2020-02-15 14:20] VITALS: BP 129/57
--- NOTE | 2020-02-15 15:27 | PM.DS ---
DS: Admitting Diagnosis Admitting Diagnosis Admitting Diagnosis: SYNCOPE DS: Discharge Diagnosis Discharge Diagnosis (1) Fall: Qualifiers: Encounter type: initial encounter Qualified Code(s): W19.XXXA - Unspecified fall, initial encounter Code(s): W19.XXXA - Unspecified fall, initial encounter Status: Acute Assessment and Plan: Patient was found down on the ground by her daughter. The patient reported being on the ground for 3 days, although unclear if this occurred. She was unable to recall the mechanics of the fall. She denied any symptoms prior to falling. CK was within normal limits. Head CT negative for any acute findings. She complained of bilateral hip pain, however left hip and pelvis x-ray and right hip x-ray were negative for any acute findings. Left wrist x-ray showed mild OA with no acute findings. Left ankle x-ray showed soft tissue swelling. Jovi wrap was applied. Fall precautions discussed. She was evaluated by PT and OT and was recommended she continue therapy at [facility]. (2) Generalized weakness: Code(s): R53.1 - Weakness Status: Acute Assessment and Plan: Likely due to overall deconditioning. TSH within normal limits. B12 and folate wnl. Continue therapy at [facility]. (3) Dementia: Code(s): F03.90 - Unspecified dementia without behavioral disturbance Status: Chronic Assessment and Plan: Patient remained pleasantly confused. She was A&Ox4 with prompting but forgetful. She is at baseline per her daughter. Continue donepezil (4) GERD without esophagitis: Code(s): K21.9 - Gastro-esophageal reflux disease without esophagitis Status: Chronic Assessment and Plan: Asymptomatic. Continue omeprazole. (5) Essential (primary) hypertension: Code(s): I10 - Essential (primary) hypertension Status: Chronic Assessment and Plan: BP reviewed daily and remained well controlled. She is not on any antihypertensives. (6) Hypothyroid: Code(s): E03.9 - Hypothyroidism, unspecified Status: Chronic Assessment and Plan: TSH is wnl. Continue levothyroxine (7) Leukocytosis: Qualifiers: Leukocytosis type: unspecified Qualified Code(s): D72.829 - Elevated white blood cell count, unspecified Code(s): D72.829 - Elevated white blood cell count, unspecified Status: Acute Assessment and Plan: At presentation, WBC was 24.1. [place] to be reactive secondary to trauma from fall. There was concern for UTI although UA was unconvincing. She received 1x dose IV Rocephin on 02/12/20. She was afebrile. No other signs or symptoms to suggest infection. No steroids. Declined to 10.6 at time of discharge. (8) Superficial thrombophlebitis: Code(s): I80.9 - Phlebitis and thrombophlebitis of unspecified site Status: Acute Assessment and Plan: Left arm was noted to be edematous, somewhat firm, and slightly warm. Venous Doppler of left upper extremity showed thrombosis of the left cephalic vein immediately above and below the elbow. This may be due to IV access in the left arm placed upon arrival. Warm compresses 3-5 times daily recommended for SNF staff. Careful monitoring of area for progression recommended. Discussed with patient and her daughter. DS: Summary Hospital Course Reason for hospitalization: fall Hospital Course: date of admission: 02/12/2020 date of discharge: 02/15/2020 Carolina Cruz is a 74 year old female with a history of dementia, HTN, HLD, and hypothyroidism who presented to the emergency department on 02/12/2020 after being found down on the floor by her daughter. She complained of left hip pain. She did not believe that she had her head in the fall, although she was not able to recall the mechanics. At presentation, vital signs stable, WBC 24.1, H&H mildly decreased, platelets 485, electrolytes stable, glucose 113, CK
== END 2020-02-15 18:55 ==
LOC: ANHED 17:19 → ANH2MED 20:10
PROVIDERS: Family Medicine; Nurse Practitioner; Admitting Provider Family Medicine; Emergency Provider Emergency Medicine; PCP Family Medicine; Visit Provider Physician Assistant
DX: R53.1 Weakness (principal); W19.XXXA Unspecified fall, initial encounter; R55 Syncope and collapse; E86.0 Dehydration; D72.829 Elevated white blood cell count, unspecified; F03.90 Unspecified dementia, unspecified severity, without behavioral disturbance, psychotic disturbance, mood disturbance, and anxiety; K21.9 Gastro-esophageal reflux disease without esophagitis; I10 Essential (primary) hypertension; E03.9 Hypothyroidism, unspecified; I82.612 Acute embolism and thrombosis of superficial veins of left upper extremity; I80.9 Phlebitis and thrombophlebitis of unspecified site; M25.551 Pain in right hip; E78.5 Hyperlipidemia, unspecified; R73.03 Prediabetes; M48.14 Ankylosing hyperostosis [Forestier], thoracic region; M47.816 Spondylosis without myelopathy or radiculopathy, lumbar region; M54.5 Low back pain; M19.032 Primary osteoarthritis, left wrist; M19.072 Primary osteoarthritis, left ankle and foot; Z20.828 Contact with and (suspected) exposure to other viral communicable diseases
CPT/HCPCS: 36415; 70450; 71045; 72128; 72131; 73100; 73501; 73502; 73600; 80048; 80053; 81001; 82550; 82607; 82746; 83735; 84439; 84443; 84480; 84484; 85025; 85027; 85610; 85730; 86140; 87040; 87086; 87635; 93005; 93971; 96361; 96365; 96366; 96375; 97110; 97116; 97161; 97165; 97530; 97535; 99285; A9270; C9803; G0378; J0696; J1200; J7030; J7120; U0003

== ENCOUNTER 2020-09-26 12:30 | Outpatient (RCR) | payer MEDICARE, SELFPAY ==
--- NOTE | 2020-08-30 10:57 | PTOPEVAL ---
INITIAL PHYSICAL THERAPY EVALUATION and PLAN OF CARE Thank you for referring Carolina Cruz to [facility].? Carolina is scheduled to be seen for physical therapy? 2x/week for 4 weeks. Please review, sign, date and return this plan of care MARIE. I agree with and certify that the following plan of care is medically necessary. Referring Physician Date Admitting Provider: Attending Provider: Bridget Mcfarland NP Referring Provider: SERVANDO Outpatient Evaluation Start: 08/30/20 09:48 Freq: Status: Active Protocol: Document 08/30/20 09:40 RENEA (Rec: 08/30/20 10:57 RENEA [id number]) Therapy Assessment Status Assessment Status Assessment Status Evaluation Outpatient Past Medical History Past Medical History Source of Past Medical History Recalled from Previous Visit, Confirmed with Patient/Family Neurological History Hx Dementia Yes Cardiovascular History Hx Hypercholesterolemia Yes Respiratory History Hx Respiratory Disorders No Significant History Gastrointestinal History Hx Cholecystectomy Yes Genitourinary History Hx Urinary Tract Infection Yes Musculoskeletal History Hx Back Pain Yes Hematological History Hx Hematological Disorders No Significant History Endocrine History Hx Diabetes Yes: pre diabetic per chart Hx Hypothyroidism Yes HEENT History Hx Other HEENT Disorders Yes: hearing loss Integumentary History Hx Skin Disorders No Significant History Reproductive History Hx Reproductive Disorders No Significant History Psychosocial History Hx Psychiatric Disorders No Significant History Pain History History of Any Previous or Ongoing No Significant History Instance of Pain Anesthesia History Hx Anesthesia Reactions No Significant History Evaluation Information Problem Diagnosis unsteadiness on feet, weakness Additional Evaluation Detail Fall early February Subjective Information After fall - went to [facility] Query Text:As Reported By Patient/ Hospital, discharged to Family [facility] then home early March - Home health was never set up - came home in a wheelchair - daughter doesn't know why Question of possible dizziness prior to the fall. 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
--- NOTE | 2020-10-05 12:17 | PCPTNOTE ---
Patient's daughter called & cancelled scheduled appointment this date due to having difficulty in getting her mother to come in for re-evaluation appointment. Will d/c pt from PT at this time.
--- NOTE | 2020-10-05 12:19 | PCPTNOTE ---
PHYSICAL THERAPY DISCHARGE SUMMARY Admitting Provider: Attending Provider: Bridget Mcfarland NP Patient:Carolina Cruz Date of :1945 Carolina has not returned for any further treatments since 09/26/2020. She had rescheduled and then today cancelled her re-evaluation appointment, therefore she will be discharged at this time. Carolina?s initial visit was on 08/30/2020 09:30 and she had a total of 5 visits. The goals have been partially met. Thank you for referring Carolina to [facility]. Please review, sign, date and return this discharge summary MARIE. I have been updated about Carolina's current status and I agree with discharge from the above service at this time. Referring Physician Date
== END 2020-10-06 17:06 | disposition home or self-care (01) ==
LOC: ANHPT 12:30
PROVIDERS: PCP Family Medicine; Visit Provider Nurse Practitioner Family
DX: R26.81 Unsteadiness on feet (principal); R53.1 Weakness
CPT/HCPCS: 97110; 97162

== ENCOUNTER 2021-06-22 08:42 | Inpatient (IN) | payer MEDICARE, SELFPAY ==
--- NOTE | ~2021-06-22 | XR_ITS ---
EXAMINATION: XR chest 1V portable 06/22/2021 10:16 INDICATION: Confusion. Hypertension. Weakness. PROCEDURE: AP portable chest COMPARISON: 02/12/2020 FINDINGS: The lungs are clear. The cardiomediastinal silhouette is within normal limits. There are no pleural effusions. There is no pneumothorax suspected. IMPRESSION: 1: NO ACUTE CARDIOPULMONARY DISEASE. Reviewed, dictated and finalized at location B.
--- NOTE | ~2021-06-22 | XR_ITS ---
EXAMINATION: XR ankle RT min 3V INDICATION: Right ankle pain TECHNIQUE: Four views of the right ankle are obtained. COMPARISON: None available FINDINGS: The bones are osteopenic which limits the sensitivity for fracture however none is seen. Vic ne alignment is normal. Posterior and plantar calcaneal enthesophytes are noted. IMPRESSION: 1. No acute osseous abnormality, sensitivity limited by osteopenia.. Reviewed, dictated and finalized at location B.
--- NOTE | ~2021-06-22 | CT_ITS ---
EXAMINATION: CT brain wo con DATE: 06/22/2021 09:55 INDICATION: Increased confusion TECHNIQUE: Computed tomography (CT) of the head was performed without intravenous contrast. The dose- length product was 605.33 mGy-cm. COMPARISON: CT dated 02/12/2020 FINDINGS: There are scattered moderate periventricular and subcortical white matter changes, most lik caroline related to small vessel ischemic disease (microangiopathy). Mild generalized atrophy. No acute in tracranial hemorrhage, infarction, mass or mass effect. Paranasal sinuses and mastoids are pneumatize d. No depressed skull fractures. IMPRESSION: 1. No acute intracranial abnormality. 2: Chronic age-related findings. Reviewed, dictated and finalized at location B.
--- NOTE | ~2021-06-22 | CT_ITS ---
EXAMINATION: CT abdomen pelvis wo con DATE: 06/27/2021 11:43 INDICATION: Urinary tract infection with worsening leukocytosis TECHNIQUE: Computed tomography (CT) of the abdomen and pelvis was performed without intravenous contr ast. Automated exposure control and iterative reconstruction technique were employed. The dose-length product was 259.32 mGy-cm. COMPARISON: None FINDINGS: Small posterior layering left pleural effusion with mild dependent atelectasis in the left lower lobe . Mild cardiomegaly. Small to moderate-sized pericardial effusion. Cholecystectomy clips the gallblad vita fossa. Liver, spleen, pancreas, bilateral adrenal glands and kidneys are normal. No urolithiasis or perinephric stranding. Bladder, retroverted uterus and bilateral adnexa are unremarkable. Small wei wel and appendix are normal. There are a few colonic diverticula without adjacent inflammatory change to suggest diverticulitis. No free intraperitoneal gas or fluid. No pathologically enlarged abdomina l or pelvic lymphadenopathy. Moderate lumbar spondylosis. IMPRESSION: 1. No acute intra-abdominal/pelvic process. 2. Small posterior layering left pleural effusion. 3. Mild cardiomegaly with small to moderate pericardial effusion. Reviewed, dictated and finalized at location A.
--- NOTE | ~2021-06-22 | XR_ITS ---
XR hip LT 2V w AP pelvis 06/25/2021 09:01 Indication: Left hip pain after fall Procedure: 3 views left hip Comparison: 02/12/2020 Findings: Pelvic rings are intact. No fracture, subluxation or dislocation. No significant soft tissu e abnormality. No foreign body. Impression: 1: No acute fracture. Reviewed, dictated and finalized at location A. Impression: 1: No acute fracture.
--- NOTE | ~2021-06-22 | XR_ITS ---
XR_[id number]_CR DATE: 07/05/2021 12:33 INDICATION: Pleural effusion TECHNIQUE: AP chest following 300 CC left pleural effusion evacuation by left-sided ultrasound-guided thoracentesis earlier today COMPARISON: 07/05/2021 ultrasound-guided left thoracentesis 07/03/2021 CTA chest abdomen pelvis FINDINGS: There is opacification lower half of left hemithorax likely due to combination of atelectas is, with some air bronchograms, in addition to moderately large left pleural effusion and possibly so me elevation of left diaphragm. No pneumothorax. Small right pleural effusion. There is enlargement of cardiac silhouette due to pericardial effusion noted on 06/25/2021 CT thorax e xamination.. Aortic atherosclerosis. Prominent osteoarthritic change at both glenohumeral joints. Degenerative spurring of the thoracic spine. Diffuse osteopenia.. IMPRESSION: Moderate residual left pleural effusion and infiltrate/atelectasis in the left mid and lo wer lung zones No evidence of left pneumothorax following left ultrasound-guided thoracentesis today Minimal right pleural effusion Pericardial effusion Reviewed, dictated and finalized at Location A. Reviewed, dictated and finalized at location A. IMPRESSION: Moderate residual left pleural effusion and infiltrate/atelectasis in the left mid and lower lung zones No evidence of left pneumothorax following left ultrasound-guided thoracentesis today Minimal right pleural effusion Pericardial effusion
--- NOTE | ~2021-06-22 | US_ITS ---
EXAMINATION: US thoracentesis DATE: 07/05/2021 12:45 INDICATION: Left pleural effusion TECHNIQUE: The procedure and its risks and benefits were discussed with the patient. Potential risks discussed included bleeding, infection, and pneumothorax. The patient understood the risks and agreed to proceed. The skin was prepped and draped in sterile fashion. 1% lidocaine was used for local anes thesia. Under ultrasound guidance, a 5 Fr catheter with trochar was advanced into the left pleural ef fusion. Fluid was aspirated until the patient began to experience some central chest pain with inspir ation at which point the procedure was terminated. The catheter was removed, and a dressing was appli ed. There were no immediate complications. FINDINGS: Ultrasound images demonstrate a sized left pleural effusion and the catheter within the fluid. IMPRESSION: 1. Successful ultrasound-guided thoracentesis yielding 300 mL of clear light yellow fluid. Reviewed, dictated and finalized at location A. IMPRESSION: 1. Successful ultrasound-guided thoracentesis yielding 300 mL of clear light y ellow fluid.
--- NOTE | ~2021-06-22 | US_ITS ---
EXAMINATION: US venous doppler [facility] DATE: 06/30/2021 14:14 INDICATION: Bilateral lower limb pain TECHNIQUE: Phipps scale images without and with compression and Doppler images of the bilateral lower e xtremity veins were obtained. COMPARISON: None FINDINGS: The right common femoral vein, profunda femoral vein, femoral vein, popliteal vein, peroneal trunk, p osterior tibial veins, and greater saphenous vein are patent. The left common femoral vein, profunda femoral vein, femoral vein, popliteal vein, peroneal trunk, po sterior tibial veins, and greater saphenous vein are patent. IMPRESSION: 1. Patent bilateral lower extremity veins. No evidence of deep venous thrombosis. Reviewed, dictated and finalized at location B. IMPRESSION: 1. Patent bilateral lower extremity veins. No evidence of deep venous thrombosi s.
--- NOTE | ~2021-06-22 | CT_ITS ---
EXAMINATION: CT chest abdomen pelvis wo con DATE: 07/03/2021 17:25 INDICATION: Leukocytosis. Recent Covid infection. Urinary tract infection. TECHNIQUE: Computed tomography (CT) of the chest, abdomen, and pelvis was performed without intraveno us contrast. Automated exposure control and iterative reconstruction technique were employed. Exam do se: 331.93 mGy-cm total exam DLP. COMPARISON: 06/27/2021 CT abdomen pelvis noncontrast examination 06/22/2021 portable AP chest FINDINGS: CHEST CT: There is moderate pericardial effusion. There is moderately large left pleural effusion and smaller r ight pleural effusion. Diminished density of blood pool suggests anemia. No thoracic aortic aneurysm. Coronary artery calcification. Aortic calcification. Bilateral axillary lymph node prominence, right axillary lymph nodes measuring up to 7.5 x 15 mm, lef t axillary lymph nodes measuring up to 9 x 18 mm. Shotty superior mediastinal, right paratracheal, pr evascular lymph nodes. There is prominent left lower lobe compressive atelectasis and lesser right lower lobe compressive at electasis. There is discoid atelectasis the lingula. ABDOMEN/PELVIS CT: Status post cholecystectomy. No hepatic, splenic, pancreatic or adrenal space-occupying mass lesion i s evident on this limited noncontrast examination. No bile duct or pancreatic duct dilatation. No renal mass lesion or urinary tract calculus or hydroureteronephrosis is detected. The urinary blad vita is relatively evacuated, unremarkable. Retroverted uterus. Normal caliber of the abdominal aorta. No intraperitoneal or retroperitoneal or pelvic mass lesion or adenopathy is evident. There is thickening of the anterior pararenal fascia in the right lower quadrant; differential diagno sis includes right acute pyelonephritis, pancreatitis. The appendix is normal. No bowel obstruction or intraperitoneal free air. Severe osteoarthritic changes of the glenohumeral joints. Diffuse idiopathic skeletal hyperostosis of the thoracic spine. Moderately severe degenerative disc d isease at L4-5. No suspicious osteolytic or osteoblastic lesions are noted. IMPRESSION: Inflammatory change in the right lower quadrant including thickening of right anterior p ararenal fascia; consider acute pyelonephritis, pancreatitis Pericardial effusion Bilateral pleural effusions, left greater than right Bilateral lower lung atelectasis, left lower lobe greater than right lower lobe and lingula Mild mediastinal and bilateral axillary lymphadenopathy, possibly reactive Anemia is suggested Reviewed, dictated and finalized at [facility]. Reviewed, dictated and finalized at [facility]. IMPRESSION: Inflammatory change in the right lower quadrant including thickeni ng of right anterior pararenal fascia; consider acute pyelonephritis, pancreati tis Pericardial effusion Bilateral pleural effusions, left greater than right Bilateral lower lung atelectasis, left lower lobe greater than right lower lobe and lingula Mild mediastinal and bilateral axillary lymphadenopathy, possibly reactive Anemia is suggested
[2021-06-22 08:47] VITALS: BP 139/66; PULSE 118; RESP 18; O2SAT 99
--- NOTE | 2021-06-22 09:13 | ECG_ITS ---
Measurements Intervals [place] Rate: 110 P: -74 TX: 143 QRS: 74 QRSD: 78 T: 60 QT: 326 QTc: 443 Interpretive Statements SINUS TACHYCARDIA COMPARED TO ECG 02/12/2020 13:10:12 NO SIGNIFICANT CHANGES Electronically Signed On 06-22-2021 14:01:11 CDT by Loraine Flores M.D.
[2021-06-22 09:21] LABS: Basophils Absolute Auto 0.1 K/mm3 (0.0-0.1); Basophils Percent Auto 0.3 % (0.2-1.2); Hematocrit 35.3 % (37.0-47.0); Hemoglobin 10.9 g/dL (12.0-15.0); Immature Granulocyte Absolute 0.46 K/mm3 (0.00-0.031); Immature Granulocyte Percent A 1.2 % (0-0.5); Lymphocytes Absolute Auto 0.73 K/mm3 (0.9-3.2); Lymphocytes Percent Auto 1.8 % (18.3-44.2); Mean Corpuscular HGB Conc 30.9 g/dl (32-36); Mean Corpuscular Hemoglobin 26.1 pg (26-34); Mean Corpuscular Volume 84.4 fl (80-100); Monocytes Absolute Auto 0.9 K/mm3 (0.1-0.6); Monocytes Percent Auto 2.2 % (2.6-8.5); Neutrophils Absolute Auto 37.8 K/mm3 (1.3-6.7); Neutrophils Percent Auto 94.5 % (45.5-73.1); Platelet Count Result 517 k/mm3 (150-375); Red Blood Count 4.18 M/mm3 (4.2-5.4); Red Cell Distribution Width 14.6 % (11.5-14.5)
[2021-06-22] MEDS: SODIUM CHLORIDE 0.9% IV 1,000 ML 999 ML (09:32)
[2021-06-22 09:34] LABS: Alanine Aminotransferase 13 U/L (4-35); Albumin Level 3.6 g/dL (3.5-5.1); Alkaline Phosphatase 134 U/L (38-126); Anion Gap 10 mmol/L (8-16); Aspartate Amino Transferase 28 U/L (14-36); Bilirubin,Total 0.6 mg/dL (0.2-1.3); Blood Urea Nitrogen 19 mg/dL (7-17); Calcium 8.2 mg/dL (8.4-10.2); Carbon Dioxide 26 mmol/L (22-30); Chloride 98 mmol/L (98-107); Estimated CRCL calculation 44 ml/min; Estimated Glomerular Filt Rate > 60; Glucose 161 mg/dL (65-110); Sodium 134 mmol/L (137-145)
--- NOTE | 2021-06-22 11:11 | PC.NURSE ---
attempted to straight cath for urine w/o success. did a bladder scan with only 1ml showing. after giving 1000ml of fluid, bladder scan shows 30ml. will report to
[2021-06-22] MEDS: SODIUM CHLORIDE 0.9% IV 1,000 ML 999 ML IV CONT (11:22)
[2021-06-22 11:23] VITALS: BP 99/59; PULSE 90; RESP 20; O2SAT 100
[2021-06-22 12:00] VITALS: BP 91/64; PULSE 88; RESP 18; O2SAT 100
[2021-06-22 12:16] LABS: Add Urine Microscopic? YES; Appearance Urine Cloudy (Clear); Bacteria Urine Trace /hpf; Bilirubin Urine Negative (Negative); Blood Urine 1+ (Negative); Color Urine Yellow (Yellow); Glucose Urine UA Negative (Negative); Ketones Urine Negative (Negative); Leukocyte Esterase Ur 2+ LEU/UL (Negative); Mucus Urine Rare /lpf; Nitrate Urine Negative (Negative); Protein Urine 1+ mg/dL (Negative); Specific Grav Ur 1.017 (1.001-1.035); Squamous Epithelial Cell Urine Rare /hpf (Few); Urobilinogen Urine Negative mg/dL (<2.0); WBC Urine 21-30 /hpf
[2021-06-22 13:13] VITALS: BP 93/56; PULSE 92; RESP 20; O2SAT 95
[2021-06-22 14:40] VITALS: BMI 23.0
[2021-06-22 15:05] VITALS: BP 106/50; PULSE 90; RESP 20; TEMP 36.3; O2SAT 96
--- NOTE | 2021-06-22 15:08 | PM.IMHP ---
H&P: HPI History of Present Illness Date/Time: 06/22/21 15:08 HPI patient is 75-year-old female was brought emergency department by her daughter, however at the time of my visit her daughter was not present and patient has severe dementia unable to provide any review of symptoms or history, later I spoke with the patient's daughter who lives next door to the patient and apparently patient had been more confused and was not behaving appropriately and this has happened part in the past when patient develops UTI so patient was brought to the emergency department her UA leuko urea and high leuko esterase suggesting patient has UTI patient started on ceftriaxone and will follow-up on urine sensitive and culture, patient is also found to significant leukocytosis 40,000, patient clinically stable will repeat the lab in the morning if it does persist will consult plant engineer for further recommendation. 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 Lives in own home with her daughter next door. Daughter is a durable power defense attorney for healthcare. The patient is listed as a full code. 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 Smoking status: Never smoker Second hand tobacco smoke exposure: Yes Alcohol intake: unknown Substance use: never Substance use type: does not use Spiritual care concerns: No Meds Home Medications and Allergies Home Medications Medication Instructions Recorded Confirmed Type acetaminophen [Mapap 650 mg PO Q4H PRN #30 tablet 02/15/20 06/22/21 Rx (acetaminophen)] omeprazole 40 mg capsule,delayed See Rx Instructions .ROUTE 04/12/20 06/22/21 Rx release .COMPLEX #90 cap cholecalciferol (vitamin D3) 50 50 mcg PO DAILY 07/25/20 06/22/21 History mcg (2,000 unit) capsule simvastatin 20 mg tablet See Rx Instructions .ROUTE 02/07/21 06/22/21 Rx .COMPLEX #90 tablet levothyroxine 50 mcg tablet 50 mcg PO DAILY #90 tablet 03/09/21 06/22/21 Rx donepezil 5 mg tablet 5 mg PO DAILY #90 tablet 03/17/21 06/22/21 Rx cetirizine [24Hour Allergy] 10 mg PO DAILY PRN 06/22/21 06/22/21 History Allergies Allergy/AdvReac Type Severity Reaction Status Date / Time No Known Allergies Allergy Verified 06/22/21 08:56 Vital Signs Vital Signs - 24 hr 06/22/21 08:47 06/22/21 11:23 06/22/21 12:00 Pulse Rate 118 H 90 88 Respiratory Rate 18 20 18 Blood Pressure 139/66 99/59 L 91/64 L Pulse Oximetry 99 100 100 06/22/21 13:13 Pulse Rate 92 Respiratory Rate 20 Blood Pressure 93/56 L Pulse Oximetry 95 Exam Narrative: elderly frail Patient is comfortable, NAD HEENT: eyes are clear and none icteric LUNGS: normal respiratory effort ABD: not distended Lower extremities: no edema SKIN: nonjaundiced Neuro: grossly intact severe dementia. H&P: Results Labs Labs: Short CBC 06/22/21 Range/Units 09:08 WBC 40.0 H (4.5-10.0) K/mm3 Hgb 10.9 L (12.0-15.0) g/dL Hct 35.3 L (37.0-47.0) % Plt Count 517 H (150-375) k/mm3 BMP 06/22/21 09:08 [place]
[2021-06-22 20:25] LABS: Glucose Point of Care 193 mg/dl (65-105)
[2021-06-23 05:24] VITALS: BP 149/100; PULSE 120; RESP 17; TEMP 37.2; O2SAT 97
[2021-06-23 06:17] LABS: Basophils Percent Auto 0.2 % (0.2-1.2); Eosinophils Absolute Auto 0.1 K/mm3 (0-0.3); Eosinophils Percent Auto 0.9 % (0-4.4); Hematocrit 33.3 % (37.0-47.0); Immature Granulocyte Percent A 0.7 % (0-0.5); Lymphocytes Absolute Auto 1.03 K/mm3 (0.9-3.2); Lymphocytes Percent Auto 6.8 % (18.3-44.2); Mean Corpuscular Volume 86.5 fl (80-100); Mean Platelet Volume 8.7 fl (7.4-10.4); Monocytes Absolute Auto 0.7 K/mm3 (0.1-0.6); Monocytes Percent Auto 4.6 % (2.6-8.5); Neutrophils Absolute Auto 13.1 K/mm3 (1.3-6.7); Neutrophils Percent Auto 86.8 % (45.5-73.1); Platelet Count Result 382 k/mm3 (150-375); Red Blood Count 3.85 M/mm3 (4.2-5.4); Red Cell Distribution Width 14.7 % (11.5-14.5); White Blood Count 15.1 K/mm3 (4.5-10.0)
[2021-06-23 06:33] LABS: Alanine Aminotransferase 10 U/L (4-35); Alkaline Phosphatase 119 U/L (38-126); Anion Gap 3 mmol/L (8-16); Aspartate Amino Transferase 26 U/L (14-36); Bilirubin,Total 0.1 mg/dL (0.2-1.3); Blood Urea Nitrogen 11 mg/dL (7-17); Calcium 8.1 mg/dL (8.4-10.2); Carbon Dioxide 29 mmol/L (22-30); Chloride 103 mmol/L (98-107); Estimated CRCL calculation 50 ml/min; Estimated Glomerular Filt Rate > 60; Glucose 123 mg/dL (65-110); Potassium 3.6 mmol/L (3.4-5.0); Sodium 135 mmol/L (137-145)
[2021-06-23 08:04] LABS: Glucose Point of Care 126 mg/dl (65-105)
[2021-06-23 08:25] VITALS: O2SAT 96
[2021-06-23 09:16] VITALS: BP 146/61; PULSE 110; RESP 16; TEMP 36.2; O2SAT 99
[2021-06-23 11:24] LABS: Glucose Point of Care 148 mg/dl (65-105)
[2021-06-23] MEDS: cefTRIAXone 2 GM in SODIUM CHLORIDE 0.9% IV 100 ML 200 ML IVPB (12:01)
[2021-06-23 16:29] LABS: Glucose Point of Care 132 mg/dl (65-105)
--- NOTE | 2021-06-23 17:23 | PM.IMPN ---
Progress Note: A&P Assessment and Plan (1) Incontinence: Code(s): R32 - Unspecified urinary incontinence Status: Acute Assessment and Plan: HPI patient is 75-year-old female was brought emergency department by her daughter, however at the time of my visit her daughter was not present and patient has severe dementia unable to provide any review of symptoms or history, later I spoke with the patient's daughter who lives next door to the patient and apparently patient had been more confused and was not behaving appropriately and this has happened part in the past when patient develops UTI so patient was brought to the emergency department her UA leuko urea and high leuko esterase suggesting patient has UTI patient started on ceftriaxone and will follow-up on urine sensitive and culture, patient is also found to significant leukocytosis 40,000, patient clinically stable will repeat the lab in the morning if it does persist will consult core filer for further recommendation. interval history: patient remains clinically stable, urine culture is growing Gram-negative bacilli will continue ceftriaxone and follow up on identification and sensitivity and further recommendation to follow, patient is white counts have trended to more infectious level and most likely secondary to UTI, will continue to monitor, will have a PT OT evaluate the patient. (2) Dementia: Qualifiers: Dementia type: unspecified type Dementia behavioral disturbance: without behavioral disturbance Qualified Code(s): F03.90 - Unspecified dementia without behavioral disturbance Code(s): F03.90 - Unspecified dementia without behavioral disturbance Status: Chronic Assessment and Plan: patient's symptoms have aggravated by UTI will continue to monitor (3) Essential (primary) hypertension: Code(s): I10 - Essential (primary) hypertension Status: Chronic Assessment and Plan: will continue home regimen and monitor (4) Hypothyroid: Qualifiers: Hypothyroidism type: unspecified Qualified Code(s): E03.9 - Hypothyroidism, unspecified Code(s): E03.9 - Hypothyroidism, unspecified Status: Chronic Assessment and Plan: will continue home regimen and monitor (5) Leukocytosis: Code(s): D72.829 - Elevated white blood cell count, unspecified Status: Acute Assessment and Plan: patient with significant elevated [place] [address] unlikely secondary to UTI will repeat white counts in the morning and further recommendation to follow Subjective Date/time seen: 06/23/21 17:23 HPI patient is 75-year-old female was brought emergency department by her daughter, however at the time of my visit her daughter was not present and patient has severe dementia unable to provide any review of symptoms or history, later I spoke with the patient's daughter who lives next door to the patient and apparently patient had been more confused and was not behaving appropriately and this has happened part in the past when patient develops UTI so patient was brought to the emergency department her UA leuko urea and high leuko esterase suggesting patient has UTI patient started on ceftriaxone and will follow-up on urine sensitive and culture, patient is also found to significant leukocytosis 40,000, patient clinically stable will repeat the lab in the morning if it does persist will consult core filer for further recommendation. interval history: patient remains clinically stable, urine culture is growing Gram-negative bacilli will continue ceftriaxone and follow up on identification and sensitivity and further recommendation to follow, patient is white counts have trended to more infectious level and most likely secondary to UTI, will continue to monitor, will have a PT OT evaluate the patient. Review of Systems Review of Systems: ROS unobtainable: Yes unobtainable
[2021-06-23 17:43] VITALS: BP 138/58; PULSE 98; RESP 16; TEMP 36.4; O2SAT 97
[2021-06-23 19:59] LABS: Glucose Point of Care 143 mg/dl (65-105)
[2021-06-23] MEDS: PANTOPRAZOLE 40 MG TABLET PO (20:23)
[2021-06-23 21:01] VITALS: O2SAT 98
[2021-06-23 21:11] VITALS: BP 131/70; PULSE 98; RESP 16; TEMP 36.3; O2SAT 98
[2021-06-24 06:01] LABS: Basophils Percent Auto 0.2 % (0.2-1.2); Eosinophils Absolute Auto 0.1 K/mm3 (0-0.3); Eosinophils Percent Auto 1.1 % (0-4.4); Hematocrit 32.2 % (37.0-47.0); Hemoglobin 9.7 g/dL (12.0-15.0); Immature Granulocyte Absolute 0.04 K/mm3 (0.00-0.031); Immature Granulocyte Percent A 0.4 % (0-0.5); Lymphocytes Absolute Auto 1.27 K/mm3 (0.9-3.2); Lymphocytes Percent Auto 11.9 % (18.3-44.2); Mean Corpuscular HGB Conc 30.1 g/dl (32-36); Mean Corpuscular Hemoglobin 25.9 pg (26-34); Mean Corpuscular Volume 86.1 fl (80-100); Mean Platelet Volume 8.9 fl (7.4-10.4); Monocytes Absolute Auto 0.5 K/mm3 (0.1-0.6); Monocytes Percent Auto 4.8 % (2.6-8.5); Neutrophils Absolute Auto 8.8 K/mm3 (1.3-6.7); Neutrophils Percent Auto 81.6 % (45.5-73.1); Platelet Count Result 443 k/mm3 (150-375); Red Blood Count 3.74 M/mm3 (4.2-5.4); Red Cell Distribution Width 14.6 % (11.5-14.5); White Blood Count 10.7 K/mm3 (4.5-10.0)
[2021-06-24 06:17] LABS: Alanine Aminotransferase 8 U/L (4-35); Alkaline Phosphatase 112 U/L (38-126); Anion Gap 5 mmol/L (8-16); Aspartate Amino Transferase 18 U/L (14-36); Bilirubin,Total 0.2 mg/dL (0.2-1.3); Blood Urea Nitrogen 11 mg/dL (7-17); Carbon Dioxide 30 mmol/L (22-30); Chloride 104 mmol/L (98-107); Estimated CRCL calculation 50 ml/min; Estimated Glomerular Filt Rate > 60; Glucose 124 mg/dL (65-110); Potassium 3.2 mmol/L (3.4-5.0); Sodium 139 mmol/L (137-145)
[2021-06-24 06:22] VITALS: BP 137/58; PULSE 71; RESP 18; TEMP 36.6; O2SAT 96
[2021-06-24 08:01] LABS: Glucose Point of Care 112 mg/dl (65-105)
[2021-06-24] MEDS: ACETAMINOPHEN 325 MG TABLET 650 MG PO (08:01)
[2021-06-24] MEDS: SIMVASTATIN 20 MG TABLET BY MOUTH (08:02)
[2021-06-24] MEDS: PANTOPRAZOLE 40 MG TABLET PO ×2 (08:02→19:45)
[2021-06-24] MEDS: DONEPEZIL HCL 5 MG TABLET PO (08:02)
[2021-06-24] MEDS: CHOLECALCIFEROL 1,000 UNITS TABLET 2000 UNITS PO (08:02)
[2021-06-24 08:24] VITALS: O2SAT 98
[2021-06-24 12:00] LABS: Glucose Point of Care 201 mg/dl (65-105)
--- NOTE | 2021-06-24 12:19 | PM.IMPN ---
Progress Note: A&P Assessment and Plan (1) Incontinence: Code(s): R32 - Unspecified urinary incontinence Status: Acute Assessment and Plan: HPI patient is 75-year-old female was brought emergency department by her daughter, however at the time of my visit her daughter was not present and patient has severe dementia unable to provide any review of symptoms or history, later I spoke with the patient's daughter who lives next door to the patient and apparently patient had been more confused and was not behaving appropriately and this has happened part in the past when patient develops UTI so patient was brought to the emergency department her UA leuko urea and high leuko esterase suggesting patient has UTI patient started on ceftriaxone and will follow-up on urine sensitive and culture, patient is also found to significant leukocytosis 40,000, patient clinically stable will repeat the lab in the morning if it does persist will consult clock mechanic for further recommendation. interval history: patient remains clinically stable, urine culture is growing Gram-negative bacilli will continue ceftriaxone and follow up on identification and sensitivity and further recommendation to follow, patient is white counts have trended to more infectious level and most likely secondary to UTI, will continue to monitor, will have a PT OT evaluate the patient. interval history: patient remains clinically stable, urine culture is growing Klebsiella pneumonia sensitive to Rocephin will continue, patient's white counts have trended down to more infectious level and most likely secondary to UTI, will continue to monitor, will have a PT OT evaluate the patient. patient with history of recurrent UTI, will continue IV antibiotic until Saturday (2) Dementia: Qualifiers: Dementia type: unspecified type Dementia behavioral disturbance: without behavioral disturbance Qualified Code(s): F03.90 - Unspecified dementia without behavioral disturbance Code(s): F03.90 - Unspecified dementia without behavioral disturbance Status: Chronic Assessment and Plan: patient's symptoms have aggravated by UTI will continue to monitor (3) Essential (primary) hypertension: Code(s): I10 - Essential (primary) hypertension Status: Chronic Assessment and Plan: will continue home regimen and monitor (4) Hypothyroid: Qualifiers: Hypothyroidism type: unspecified Qualified Code(s): E03.9 - Hypothyroidism, unspecified Code(s): E03.9 - Hypothyroidism, unspecified Status: Chronic Assessment and Plan: will continue home regimen and monitor (5) Leukocytosis: Code(s): D72.829 - Elevated white blood cell count, unspecified Status: Acute Assessment and Plan: patient with significant [place] [address] unlikely secondary to UTI will repeat white counts in the morning and further recommendation to follow Subjective Date/time seen: 06/24/21 12:19 HPI patient is 75-year-old female was brought emergency department by her daughter, however at the time of my visit her daughter was not present and patient has severe dementia unable to provide any review of symptoms or history, later I spoke with the patient's daughter who lives next door to the patient and apparently patient had been more confused and was not behaving appropriately and this has happened part in the past when patient develops UTI so patient was brought to the emergency department her UA leuko urea and high leuko esterase suggesting patient has UTI patient started on ceftriaxone and will follow-up on urine sensitive and culture, patient is also found to significant leukocytosis 40,000, patient clinically stable will repeat the lab in the morning if it does persist will consult clock mechanic for further recommendation. interval history: patient remains clinically stable, u
[2021-06-24] MEDS: POTASSIUM CHLORIDE 20 MEQ PACKET (FOR LIQUID) 40 MEQ PO (12:41)
[2021-06-24] MEDS: cefTRIAXone 2 GM in SODIUM CHLORIDE 0.9% IV 100 ML 200 ML IVPB (12:42)
[2021-06-24 14:00] VITALS: BP 107/58; PULSE 83; RESP 16; TEMP 36.6; O2SAT 99
[2021-06-24 16:45] LABS: Glucose Point of Care 104 mg/dl (65-105)
[2021-06-24 19:41] VITALS: BP 151/88; PULSE 102; RESP 16; TEMP 36.2; O2SAT 98
[2021-06-24 20:57] LABS: Glucose Point of Care 131 mg/dl (65-105)
[2021-06-25 04:41] VITALS: BP 145/58; PULSE 84; RESP 16; TEMP 36.2; O2SAT 99
[2021-06-25 05:35] LABS: Basophils Percent Auto 0.3 % (0.2-1.2); Eosinophils Absolute Auto 0.2 K/mm3 (0-0.3); Eosinophils Percent Auto 1.5 % (0-4.4); Hematocrit 32.8 % (37.0-47.0); Hemoglobin 10.1 g/dL (12.0-15.0); Immature Granulocyte Absolute 0.08 K/mm3 (0.00-0.031); Immature Granulocyte Percent A 0.6 % (0-0.5); Lymphocytes Absolute Auto 1.27 K/mm3 (0.9-3.2); Mean Corpuscular HGB Conc 30.8 g/dl (32-36); Mean Corpuscular Hemoglobin 25.8 pg (26-34); Mean Corpuscular Volume 83.9 fl (80-100); Mean Platelet Volume 8.6 fl (7.4-10.4); Monocytes Absolute Auto 0.6 K/mm3 (0.1-0.6); Neutrophils Absolute Auto 10.5 K/mm3 (1.3-6.7); Neutrophils Percent Auto 82.6 % (45.5-73.1); Platelet Count Result 482 k/mm3 (150-375); Red Blood Count 3.91 M/mm3 (4.2-5.4); Red Cell Distribution Width 14.7 % (11.5-14.5); White Blood Count 12.7 K/mm3 (4.5-10.0)
[2021-06-25 05:41] LABS: Alanine Aminotransferase 9 U/L (4-35); Albumin Level 3.1 g/dL (3.5-5.1); Alkaline Phosphatase 106 U/L (38-126); Anion Gap 4 mmol/L (8-16); Aspartate Amino Transferase 18 U/L (14-36); Bilirubin,Total 0.2 mg/dL (0.2-1.3); Blood Urea Nitrogen 10 mg/dL (7-17); Calcium 8.1 mg/dL (8.4-10.2); Carbon Dioxide 30 mmol/L (22-30); Chloride 102 mmol/L (98-107); Estimated CRCL calculation 50 ml/min; Estimated Glomerular Filt Rate > 60; Glucose 131 mg/dL (65-110); Potassium 3.9 mmol/L (3.4-5.0); Sodium 136 mmol/L (137-145)
[2021-06-25 07:48] LABS: Glucose Point of Care 114 mg/dl (65-105)
[2021-06-25] MEDS: DONEPEZIL HCL 5 MG TABLET PO (08:21)
[2021-06-25] MEDS: CHOLECALCIFEROL 1,000 UNITS TABLET 2000 UNITS PO (08:21)
[2021-06-25] MEDS: SIMVASTATIN 20 MG TABLET BY MOUTH (08:21)
[2021-06-25] MEDS: PANTOPRAZOLE 40 MG TABLET PO ×2 (08:21→20:16)
[2021-06-25] MEDS: ACETAMINOPHEN 325 MG TABLET 650 MG PO ×2 (08:38→20:17)
--- NOTE | 2021-06-25 09:57 | PC.NURSE ---
0900 Dr Levine notified of patient having rash on chect and legs, Md at bedside to look at.
[2021-06-25] MEDS: cefTRIAXone 2 GM in SODIUM CHLORIDE 0.9% IV 100 ML IVPB (11:13)
[2021-06-25 11:44] LABS: Glucose Point of Care 190 mg/dl (65-105)
--- NOTE | 2021-06-25 12:31 | PM.IMPN ---
Progress Note: A&P Assessment and Plan (1) Incontinence: Code(s): R32 - Unspecified urinary incontinence Status: Acute Assessment and Plan: HPI patient is 75-year-old female was brought emergency department by her daughter, however at the time of my visit her daughter was not present and patient has severe dementia unable to provide any review of symptoms or history, later I spoke with the patient's daughter who lives next door to the patient and apparently patient had been more confused and was not behaving appropriately and this has happened part in the past when patient develops UTI so patient was brought to the emergency department her UA leuko urea and high leuko esterase suggesting patient has UTI patient started on ceftriaxone and will follow-up on urine sensitive and culture, patient is also found to significant leukocytosis 40,000, patient clinically stable will repeat the lab in the morning if it does persist will consult supervisor fireworks assembly for further recommendation. interval history: patient remains clinically stable, urine culture is growing Gram-negative bacilli will continue ceftriaxone and follow up on identification and sensitivity and further recommendation to follow, patient is white counts have trended to more infectious level and most likely secondary to UTI, will continue to monitor, will have a PT OT evaluate the patient. interval history: patient remains clinically stable, urine culture is growing Klebsiella pneumonia sensitive to Rocephin will continue, patient's white counts have trended down to more infectious level and most likely secondary to UTI, will continue to monitor, will have a PT OT evaluate the patient. patient with history of recurrent UTI, will continue IV antibiotic until Saturday. interval history: patient remains clinically stable, urine culture is growing Klebsiella pneumonia sensitive to Rocephin will continue, patient's white counts have trended down to more infectious level and most likely secondary to UTI, today patient has generalized rash macules blanchable no induration, denies any itching, or shortness of breath, unlikely it is due to IV Rocephin as it normally takes 7 days today will drug-induced allergic reaction, will continue to monitor, will have a PT OT evaluate the patient. patient with history of recurrent UTI, will continue IV antibiotic until Saturday (2) Dementia: Qualifiers: Dementia type: unspecified type Dementia behavioral disturbance: without behavioral disturbance Qualified Code(s): F03.90 - Unspecified dementia without behavioral disturbance Code(s): F03.90 - Unspecified dementia without behavioral disturbance Status: Chronic Assessment and Plan: patient's symptoms have aggravated by UTI will continue to monitor (3) Essential (primary) hypertension: Code(s): I10 - Essential (primary) hypertension Status: Chronic Assessment and Plan: will continue home regimen and monitor (4) Hypothyroid: Qualifiers: Hypothyroidism type: unspecified Qualified Code(s): E03.9 - Hypothyroidism, unspecified Code(s): E03.9 - Hypothyroidism, unspecified Status: Chronic Assessment and Plan: will continue home regimen and monitor (5) Leukocytosis: Code(s): D72.829 - Elevated white blood cell count, unspecified Status: Acute Assessment and Plan: patient with significant [place] [address] unlikely secondary to UTI will repeat white counts in the morning and further recommendation to follow Subjective Date/time seen: 06/25/21 12:31 HPI patient is 75-year-old female was brought emergency department by her daughter, however at the time of my visit her daughter was not present and patient has severe dementia unable to provide any review of symptoms or history, later I spoke with the patient's daughter who lives next door to
[2021-06-25 14:00] VITALS: BP 132/52; PULSE 81; RESP 16; TEMP 36.4; O2SAT 100
[2021-06-25 20:13] VITALS: BP 136/67; PULSE 100; RESP 16; TEMP 36.5; O2SAT 99
[2021-06-26] MEDS: ACETAMINOPHEN 325 MG TABLET 650 MG PO ×3 (03:17→18:19)
[2021-06-26 04:09] VITALS: BP 118/48; PULSE 70; RESP 16; TEMP 36.2; O2SAT 94
[2021-06-26 05:27] LABS: Basophils Percent Auto 0.3 % (0.2-1.2); Eosinophils Absolute Auto 0.2 K/mm3 (0-0.3); Eosinophils Percent Auto 1.9 % (0-4.4); Hematocrit 34.1 % (37.0-47.0); Hemoglobin 10.4 g/dL (12.0-15.0); Immature Granulocyte Absolute 0.06 K/mm3 (0.00-0.031); Immature Granulocyte Percent A 0.6 % (0-0.5); Lymphocytes Absolute Auto 1.25 K/mm3 (0.9-3.2); Lymphocytes Percent Auto 11.6 % (18.3-44.2); Mean Corpuscular HGB Conc 30.5 g/dl (32-36); Mean Corpuscular Hemoglobin 25.6 pg (26-34); Mean Corpuscular Volume 83.8 fl (80-100); Mean Platelet Volume 8.7 fl (7.4-10.4); Monocytes Absolute Auto 0.5 K/mm3 (0.1-0.6); Monocytes Percent Auto 4.3 % (2.6-8.5); Neutrophils Absolute Auto 8.8 K/mm3 (1.3-6.7); Neutrophils Percent Auto 81.3 % (45.5-73.1); Platelet Count Result 497 k/mm3 (150-375); Red Blood Count 4.07 M/mm3 (4.2-5.4); Red Cell Distribution Width 14.6 % (11.5-14.5); White Blood Count 10.8 K/mm3 (4.5-10.0)
[2021-06-26 05:38] LABS: Alanine Aminotransferase 9 U/L (4-35); Albumin Level 3.1 g/dL (3.5-5.1); Alkaline Phosphatase 105 U/L (38-126); Anion Gap 5 mmol/L (8-16); Aspartate Amino Transferase 18 U/L (14-36); Bilirubin,Total 0.2 mg/dL (0.2-1.3); Blood Urea Nitrogen 12 mg/dL (7-17); Calcium 8.3 mg/dL (8.4-10.2); Carbon Dioxide 31 mmol/L (22-30); Chloride 102 mmol/L (98-107); Estimated CRCL calculation 44 ml/min; Estimated Glomerular Filt Rate > 60; Glucose 133 mg/dL (65-110); Potassium 3.6 mmol/L (3.4-5.0); Sodium 138 mmol/L (137-145)
[2021-06-26] MEDS: DONEPEZIL HCL 5 MG TABLET PO (07:38)
[2021-06-26] MEDS: CHOLECALCIFEROL 1,000 UNITS TABLET 2000 UNITS PO (07:38)
[2021-06-26] MEDS: PANTOPRAZOLE 40 MG TABLET PO ×2 (07:38→20:37)
[2021-06-26] MEDS: SIMVASTATIN 20 MG TABLET BY MOUTH (07:39)
[2021-06-26] MEDS: cefTRIAXone 2 GM in SODIUM CHLORIDE 0.9% IV 100 ML IVPB (11:30)
--- NOTE | 2021-06-26 14:21 | PM.IMPN ---
Progress Note: A&P Assessment and Plan (1) Incontinence: Code(s): R32 - Unspecified urinary incontinence Status: Acute Assessment and Plan: HPI patient is 75-year-old female was brought emergency department by her daughter, however at the time of my visit her daughter was not present and patient has severe dementia unable to provide any review of symptoms or history, later I spoke with the patient's daughter who lives next door to the patient and apparently patient had been more confused and was not behaving appropriately and this has happened part in the past when patient develops UTI so patient was brought to the emergency department her UA leuko urea and high leuko esterase suggesting patient has UTI patient started on ceftriaxone and will follow-up on urine sensitive and culture, patient is also found to significant leukocytosis 40,000, patient clinically stable will repeat the lab in the morning if it does persist will consult financial aid counselor for further recommendation. interval history: patient remains clinically stable, urine culture is growing Gram-negative bacilli will continue ceftriaxone and follow up on identification and sensitivity and further recommendation to follow, patient is white counts have trended to more infectious level and most likely secondary to UTI, will continue to monitor, will have a PT OT evaluate the patient. interval history: patient remains clinically stable, urine culture is growing Klebsiella pneumonia sensitive to Rocephin will continue, patient's white counts have trended down to more infectious level and most likely secondary to UTI, will continue to monitor, will have a PT OT evaluate the patient. patient with history of recurrent UTI, will continue IV antibiotic until Saturday. interval history: patient remains clinically stable, urine culture is growing Klebsiella pneumonia sensitive to Rocephin will continue, patient's white counts have trended down to more infectious level and most likely secondary to UTI, today patient has generalized rash macules blanchable no induration, denies any itching, or shortness of breath, unlikely it is due to IV Rocephin as it normally takes 7 days today will drug-induced allergic reaction, will continue to monitor, will have a PT OT evaluate the patient. patient with history of recurrent UTI, will continue IV antibiotic until Saturday06/26/2021 interval history: patient remains clinically stable, urine culture is growing Klebsiella pneumonia sensitive to Rocephin will continue, patient's white counts have trended down to more infectious level and most likely secondary to UTI, will continue to monitor, will have a PT OT evaluate the patient. patient with history of recurrent UTI, will continue IV antibiotic, patient has not been able to ambulate with physical therapy and require assistance patient will benefit going to rehab before going home will continue to monitor and further recommendation to follow. the rash patient has it is chronic. (2) Dementia: Qualifiers: Dementia type: unspecified type Dementia behavioral disturbance: without behavioral disturbance Qualified Code(s): F03.90 - Unspecified dementia without behavioral disturbance Code(s): F03.90 - Unspecified dementia without behavioral disturbance Status: Chronic Assessment and Plan: patient's symptoms have aggravated by UTI will continue to monitor (3) Essential (primary) hypertension: Code(s): I10 - Essential (primary) hypertension Status: Chronic Assessment and Plan: will continue home regimen and monitor (4) Hypothyroid: Qualifiers: Hypothyroidism type: unspecified Qualified Code(s): E03.9 - Hypothyroidism, unspecified Code(s): E03.9 - Hypothyroidism, unspecified Status: Chronic Assessment and Plan: will continue home regimen and monitor (5) Leukocytosis: Code(s):
[2021-06-26 14:29] VITALS: BP 117/48; PULSE 103; RESP 20; TEMP 36.8; O2SAT 99
[2021-06-26 20:00] VITALS: PULSE 103; RESP 20; O2SAT 99
[2021-06-26 21:45] VITALS: BP 118/40; PULSE 83; RESP 18; TEMP 36.1; O2SAT 98
[2021-06-27 05:59] LABS: Basophils Percent Auto 0.2 % (0.2-1.2); Eosinophils Absolute Auto 0.2 K/mm3 (0-0.3); Eosinophils Percent Auto 1.1 % (0-4.4); Hematocrit 32.6 % (37.0-47.0); Hemoglobin 9.9 g/dL (12.0-15.0); Immature Granulocyte Absolute 0.07 K/mm3 (0.00-0.031); Immature Granulocyte Percent A 0.5 % (0-0.5); Lymphocytes Absolute Auto 0.97 K/mm3 (0.9-3.2); Lymphocytes Percent Auto 6.4 % (18.3-44.2); Mean Corpuscular HGB Conc 30.4 g/dl (32-36); Mean Corpuscular Hemoglobin 25.6 pg (26-34); Mean Corpuscular Volume 84.5 fl (80-100); Mean Platelet Volume 8.9 fl (7.4-10.4); Monocytes Absolute Auto 0.4 K/mm3 (0.1-0.6); Monocytes Percent Auto 2.8 % (2.6-8.5); Neutrophils Absolute Auto 13.5 K/mm3 (1.3-6.7); Platelet Count Result 496 k/mm3 (150-375); Red Blood Count 3.86 M/mm3 (4.2-5.4); Red Cell Distribution Width 14.9 % (11.5-14.5); White Blood Count 15.2 K/mm3 (4.5-10.0)
[2021-06-27 06:00] VITALS: BP 145/52; PULSE 93; RESP 18; TEMP 36.6; O2SAT 97
[2021-06-27 06:13] LABS: Alanine Aminotransferase 10 U/L (4-35); Alkaline Phosphatase 105 U/L (38-126); Anion Gap 6 mmol/L (8-16); Aspartate Amino Transferase 20 U/L (14-36); Bilirubin,Total 0.2 mg/dL (0.2-1.3); Blood Urea Nitrogen 11 mg/dL (7-17); Calcium 7.9 mg/dL (8.4-10.2); Carbon Dioxide 28 mmol/L (22-30); Chloride 102 mmol/L (98-107); Estimated CRCL calculation 50 ml/min; Estimated Glomerular Filt Rate > 60; Glucose 130 mg/dL (65-110); Potassium 3.5 mmol/L (3.4-5.0); Sodium 136 mmol/L (137-145)
[2021-06-27] MEDS: CHOLECALCIFEROL 1,000 UNITS TABLET 2000 UNITS PO (08:21)
[2021-06-27] MEDS: DONEPEZIL HCL 5 MG TABLET PO (08:22)
[2021-06-27] MEDS: PANTOPRAZOLE 40 MG TABLET PO ×2 (08:22→19:46)
[2021-06-27] MEDS: SIMVASTATIN 20 MG TABLET BY MOUTH (08:22)
--- NOTE | 2021-06-27 10:07 | PM.IMPN ---
Progress Note: A&P Assessment and Plan (1) Incontinence: Code(s): R32 - Unspecified urinary incontinence Status: Acute Assessment and Plan: UTI present on admission associated with sepsis present on admission patient has leukocytosis and tachycardia on admission urine culture is growing Klebsiella pneumonia sensitive to Rocephin leukocytosis worsening today will repeat blood culture will get CT scan of the abdomen if blood culture positive patient will need 7-14 days of IV antibiotics depending on blood culture results if blood culture negative patient can be discharged on oral antibiotic to complete course of 10 days Pending blood culture ordered today pending CT scan of the abdomen ordered today as patient was presented with sepsis (2) Dementia: Qualifiers: Dementia type: unspecified type Dementia behavioral disturbance: without behavioral disturbance Qualified Code(s): F03.90 - Unspecified dementia without behavioral disturbance Code(s): F03.90 - Unspecified dementia without behavioral disturbance Status: Chronic Assessment and Plan: patient's symptoms have aggravated by UTI will continue to monitor (3) Essential (primary) hypertension: Code(s): I10 - Essential (primary) hypertension Status: Chronic Assessment and Plan: will continue home regimen and monitor (4) Hypothyroid: Qualifiers: Hypothyroidism type: unspecified Qualified Code(s): E03.9 - Hypothyroidism, unspecified Code(s): E03.9 - Hypothyroidism, unspecified Status: Chronic Assessment and Plan: will continue home regimen and monitor (5) Leukocytosis: Code(s): D72.829 - Elevated white blood cell count, unspecified Status: Acute Assessment and Plan: Worsening today pending repeat blood culture pending CT scan of the abdomen Anticipate discharge in 1-2 days pending results of the blood culture and CT scan of the abdomen Subjective Date/time seen: 06/27/21 10:07 Interval history: patient is 75-year-old female was brought emergency department by her daughter, however at the time of my visit her daughter was not present and patient has severe dementia unable to provide any review of symptoms or history, later I spoke with the patient's daughter who lives next door to the patient and apparently patient had been more confused and was not behaving appropriately and this has happened part in the past when patient develops UTI so patient was brought to the emergency department her UA leuko urea and high leuko esterase suggesting patient has UTI patient started on ceftriaxone and will follow-up on urine sensitive and culture, patient is also found to significant leukocytosis 40,000, patient clinically stable will repeat the lab in the morning if it does persist will consult ladle car operator for further recommendation. Patient feels weak today leukocytosis worsening has tachycardia Patient denies fever headache chest pain shortness of breath I am seeing the patient for UTI Exam Narrative: elderly frail Patient is comfortable, NAD HEENT: eyes are clear and none icteric LUNGS: normal respiratory effort ABD: not distended Lower extremities: no edema SKIN: nonjaundiced Neuro: grossly intact severe dementia. Objective Data Vital Signs Vital Signs: Vital Signs - 24 hr 06/26/21 14:29 06/26/21 20:00 06/26/21 21:45 Temperature 98.2 F 96.9 F L Pulse Rate 103 H 103 H 83 Respiratory Rate 20 20 18 Blood Pressure 117/48 L 118/40 L Pulse Oximetry 99 99 98 06/27/21 06:00 Temperature 97.8 F Pulse Rate 93 Respiratory Rate 18 Blood Pressure 145/52 H Pulse Oximetry 97 Intake/Output Intake/Output: Intake & Output 06/24/21 06/25/21 06/26/21 06/27/21 23:59 23:59 23:59 23:59 Intake Total 1240 1293 1060 590 Balance 1240 1293 1060 590 Meds/Results Medications: Active Medications Generic Name Dose Route Start Last Admin Trade Name
[2021-06-27] MEDS: cefTRIAXone 2 GM in SODIUM CHLORIDE 0.9% IV 100 ML 200 ML IVPB (12:08)
[2021-06-27 14:00] VITALS: BP 135/58; PULSE 98; RESP 16; TEMP 36.6; O2SAT 99
[2021-06-27] MEDS: ACETAMINOPHEN 325 MG TABLET 650 MG PO (19:46)
[2021-06-27 20:00] VITALS: PULSE 98; RESP 16; O2SAT 99
[2021-06-27 22:00] VITALS: BP 156/68; PULSE 102; RESP 20; TEMP 36.8; O2SAT 98
--- NOTE | 2021-06-28 | ECHO_ITS ---
Patient Info Name: Carolina Cruz Age: 75 years : 1945 Gender: Female Ht: 61 in Wt: 121 lbs BSA: 1.54 m2 HR: 97 bpm BP: 147 / 59 mmHg Technical Quality: Good Exam Date: 06/28/2021 3:01 PM Exam Location: [facility] Patient Status: Inpatient Admit Date: 06/24/2021 Staff Ordering Physician: Komal Quiroz MD Polysomnography Tech: Ranjeet Jacques RDCS, RT Attending Provider: Joana Godinez MD Exam Type: CA echo doppler color flow Study Info Indications R07.9 - Chest pain, unspecified Complete two-dimensional, color flow and Doppler transthoracic echocardiogram is performed. Strain analysis performed. Summary 1. Complete two-dimensional, color flow and Doppler transthoracic echocardiogram is performed. 2. Left ventricular chamber dimension is normal. 3. Left ventricular systolic function is normal, estimated at 60-65%. 4. The left ventricular diastolic function is grade I diastolic dysfunction. 5. E/e' 11 is mildly elevated. 6. Global longitudinal strain is mildly abnormal at -16.4%. 7. There is trace tricuspid valve regurgitation. 8. There is trace pulmonic regurgitation. 9. There is small circumferential pericardial effusion. No cardiac tamponade. Left Ventricle E/e' 11 is mildly elevated. Global longitudinal strain is mildly abnormal at -16.4%. Left ventricular chamber dimension is normal. Left ventricular systolic function is normal, estimated at 60-65%. The left ventricular diastolic function is grade I diastolic dysfunction. Right Ventricle Right ventricular systolic function is normal and with normal TAPSE 2.2 cm. Right ventricular chamber dimension is normal. Left Atria Left atrial chamber dimension is normal. Right Atria Right atrial chamber dimension is normal. Aortic Valve The aortic valve is trileaflet. There is no aortic valve stenosis. There is no aortic valve regurgitation. Pulmonic Valve There is trace pulmonic regurgitation. Mitral Valve There is no mitral valve stenosis. There is no mitral valve regurgitation. Tricuspid Valve There is trace tricuspid valve regurgitation. RVSP is not calculated due to an inadequate TR jet. Pericardium/Pleural There is small circumferential pericardial effusion. No cardiac tamponade. Inferior Vena Cava Normal inferior vena cava with >50% collapse upon inspiration consistent with normal right atrial pressure, 5 mmHg. Aorta The aortic root size at the sinus of Valsalva is normal. Left Ventricular Outflow Tract Name Value Normal LVOT 2D LVOT Diameter 2.0 cm LVOT Doppler LVOT Peak Gradient 4 mmHg LVOT Mean Gradient 2 mmHg LVOT VTI 16 cm LVOT VTI/AV VTI Ratio 0.6 LVOT Stroke Volume 47 ml LVOT CO 4.5 l/min LVOT CI 2.9 l/min/m2 Mitral Valve Name Value Normal
[2021-06-28 05:03] LABS: Basophils Percent Auto 0.3 % (0.2-1.2); Eosinophils Absolute Auto 0.2 K/mm3 (0-0.3); Eosinophils Percent Auto 1.9 % (0-4.4); Hematocrit 31.6 % (37.0-47.0); Hemoglobin 9.4 g/dL (12.0-15.0); Immature Granulocyte Absolute 0.12 K/mm3 (0.00-0.031); Lymphocytes Absolute Auto 1.23 K/mm3 (0.9-3.2); Lymphocytes Percent Auto 10.1 % (18.3-44.2); Mean Corpuscular HGB Conc 29.7 g/dl (32-36); Mean Corpuscular Hemoglobin 25.7 pg (26-34); Mean Corpuscular Volume 86.3 fl (80-100); Monocytes Absolute Auto 0.6 K/mm3 (0.1-0.6); Monocytes Percent Auto 5.3 % (2.6-8.5); Neutrophils Absolute Auto 9.9 K/mm3 (1.3-6.7); Neutrophils Percent Auto 81.4 % (45.5-73.1); Platelet Count Result 465 k/mm3 (150-375); Red Blood Count 3.66 M/mm3 (4.2-5.4); Red Cell Distribution Width 14.7 % (11.5-14.5); White Blood Count 12.2 K/mm3 (4.5-10.0)
[2021-06-28 05:17] LABS: Alanine Aminotransferase 10 U/L (4-35); Alkaline Phosphatase 87 U/L (38-126); Anion Gap 4 mmol/L (8-16); Aspartate Amino Transferase 17 U/L (14-36); Bilirubin,Total 0.3 mg/dL (0.2-1.3); Blood Urea Nitrogen 10 mg/dL (7-17); Calcium 7.7 mg/dL (8.4-10.2); Carbon Dioxide 28 mmol/L (22-30); Chloride 104 mmol/L (98-107); Estimated CRCL calculation 59 ml/min; Estimated Glomerular Filt Rate > 60; Glucose 120 mg/dL (65-110); Potassium 3.6 mmol/L (3.4-5.0); Sodium 136 mmol/L (137-145)
[2021-06-28 06:00] VITALS: BP 147/59; PULSE 96; RESP 18; TEMP 36.5; O2SAT 96
[2021-06-28] MEDS: LEVOTHYROXINE SODIUM 50 MCG TABLET PO (06:14)
[2021-06-28] MEDS: ACETAMINOPHEN 325 MG TABLET 650 MG PO ×2 (07:48→20:37)
[2021-06-28 08:00] VITALS: PULSE 96; RESP 18; O2SAT 99
[2021-06-28] MEDS: PANTOPRAZOLE 40 MG TABLET PO ×2 (09:13→20:37)
[2021-06-28] MEDS: DONEPEZIL HCL 5 MG TABLET PO (09:13)
[2021-06-28] MEDS: CHOLECALCIFEROL 1,000 UNITS TABLET 2000 UNITS PO (09:13)
[2021-06-28] MEDS: SIMVASTATIN 20 MG TABLET BY MOUTH (09:13)
[2021-06-28] MEDS: cefTRIAXone 2 GM in SODIUM CHLORIDE 0.9% IV 100 ML 200 ML IVPB (12:12)
--- NOTE | 2021-06-28 13:19 | PCPTNOTE ---
Attempted PT 3x today. Patient declined 2x in A.M. and again this afternoon. Patient was educated in the importance of participating in therapy to improve strength and mobility. Patient continued to decline stating I just want to sleep. PT will continue per plan of care.
[2021-06-28 14:00] VITALS: BP 140/63; PULSE 96; RESP 18; TEMP 36.9; O2SAT 99
--- NOTE | 2021-06-28 15:36 | PM.IMPN ---
Progress Note: A&P Additional Plan 75-year-old female was brought emergency department by her daughter, with altered mental status. Found to have UTI 1)Acute encephalopathy: 2/2 UTI Improved 2)Sepsis 2/2UTI: 2/2 Klebsiella c/w ceftriaxone for 7 days improving leucocytosis 3)?Abnormality on CT scan: CT scan of abdomen reported to have cardiomegaly concerning for percardial effusion Will get echo 4)DVT ppx: SCD 5)Code:Full 6)Dispo: anticipate d/c to NH in AM if echo is unremarkable Time Spent With Patient Time with patient: 15 - 25 minutes Subjective Date/time seen: 06/28/21 15:36 seems to have some amount of underlying anxiety Review of Systems Review of Systems: All systems reviewed & are unremarkable except as noted in HPI and below Constitutional: Constitutional: Reports fatigue and Reports weakness Eyes: Eyes: Reports no additional eye complaints ENT: Reports system reviewed and no additional complaints, except as documented Cardiovascular: Cardiovascular: Reports no additional cardiovascular complaints Respiratory: Respiratory: Reports dyspnea and Reports dyspnea on exertion Gastrointestinal: Gastrointestinal: Reports no additional gastrointestinal complaints Musculoskeletal: Musculoskeletal: Reports no additional musculoskeletal complaints Neurologic: Reports system reviewed and no additional complaints, except as documented Exam Const: General: no acute distress Other: nasal canula in situ HENMT: Mouth: Yes moist mucous membranes Eyes: Sclera: sclerae normal Pupils: Equal, round and reactive pupils present Neck: Neck: supple Resp: Other: decreased breath sounds B/L, few scattered crackles Cardio: Rate: regular rate Rhythm: regular rhythm GI: GI Palp: Yes Soft to palpation Auscultation: normal bowel sounds Skin: General skin exam: normal color Neuro: Cognition (Neuro): normal cognition Psych: Mental Status: mental status grossly normal Objective Data Vital Signs Vital Signs: Vital Signs - 24 hr 06/27/21 20:00 06/27/21 22:00 06/28/21 06:00 Temperature 98.2 F 97.7 F Pulse Rate 98 102 H 96 Respiratory Rate 16 20 18 Blood Pressure 156/68 H 147/59 H Pulse Oximetry 99 98 96 06/28/21 14:00 Temperature 98.4 F Pulse Rate 96 Respiratory Rate 18 Blood Pressure 140/63 Pulse Oximetry 99 Intake/Output Intake/Output: Intake & Output 06/25/21 06/26/21 06/27/21 06/28/21 23:59 23:59 23:59 23:59 Intake Total 1293 1060 1290 1080 Balance 1293 1060 1290 1080 Meds/Results Medications: Active Medications Generic Name Dose Route Start Last Admin Trade Name Freq PRN Reason Stop Dose Admin Acetaminophen 650 mg 06/23/21 16:36 06/28/21 07:48 Acetaminophen 325 Mg Tablet PO 650 mg Q4H PRN Administration Headache or pain 1-3 Donepezil HCl 5 mg 06/24/21 09:00 06/28/21 09:13 Donepezil Hcl 5 Mg Tablet PO 5 mg DAILY JUAN Administration Ceftriaxone Sodium 2 gm/ 100 mls @ 200 mls/hr 06/23/21 12:00 06/28/21 12:12 Sodium Chloride IVPB 06/29/21 12:29 200 mls/hr Q24H JUAN Administration Levothyroxine Sodium 50 mcg 06/28/21 06:30 06/28/21 06:14 Levothyroxine Sodium 50 Mcg Tablet PO 50 mcg DAILY@0630 JUAN Administration Loratadine 10 mg 06/23/21 16:36 Loratadine 10 Mg Tablet PO DAILY PRN allergies Ondansetron HCl 4 mg 06/22/21 12:22 Ondansetron Inj 4 Mg/2 Ml Vial IV PUSH Q4H PRN Nausea Pantoprazole Sodium 40 mg 06/23/21 21:00 06/28/21 09:13 Pantoprazole 40 Mg Tablet PO 40 mg Q12HR JUAN Administration Perflutren Lipid Microsphere 0 ml 06/28/21 10:29 Perflutren Lipid Microspheres 1.5 Ml Vial Diluted To 10 Ml Total Volume IV PUSH ONCE PRN adequate visualization Protocol Simvastatin 20 mg 06/24/21 09:00 06/28/21 09:13 Simvastatin 20 Mg Tablet BY MOUTH 20 mg DAILY JUAN Administration Vitamin D 2,000 units 06/24/21 09:00 06/28/21 09:13 Cholecalci
[2021-06-28 20:00] VITALS: BP 147/70; PULSE 95; RESP 18; TEMP 36.2; O2SAT 98
[2021-06-29 05:59] LABS: Basophils Percent Auto 0.2 % (0.2-1.2); Eosinophils Absolute Auto 0.2 K/mm3 (0-0.3); Eosinophils Percent Auto 1.5 % (0-4.4); Hemoglobin 10.5 g/dL (12.0-15.0); Immature Granulocyte Absolute 0.15 K/mm3 (0.00-0.031); Immature Granulocyte Percent A 0.9 % (0-0.5); Lymphocytes Absolute Auto 1.34 K/mm3 (0.9-3.2); Lymphocytes Percent Auto 8.3 % (18.3-44.2); Mean Corpuscular Hemoglobin 25.3 pg (26-34); Mean Corpuscular Volume 84.3 fl (80-100); Mean Platelet Volume 8.6 fl (7.4-10.4); Monocytes Absolute Auto 0.5 K/mm3 (0.1-0.6); Monocytes Percent Auto 3.1 % (2.6-8.5); Neutrophils Absolute Auto 13.8 K/mm3 (1.3-6.7); Platelet Count Result 581 k/mm3 (150-375); Red Blood Count 4.15 M/mm3 (4.2-5.4); Red Cell Distribution Width 14.7 % (11.5-14.5); White Blood Count 16.1 K/mm3 (4.5-10.0)
[2021-06-29 06:00] VITALS: BP 176/50; PULSE 99; RESP 20; TEMP 36.7; O2SAT 98
[2021-06-29] MEDS: LEVOTHYROXINE SODIUM 50 MCG TABLET PO (06:13)
[2021-06-29 06:39] LABS: Alanine Aminotransferase 11 U/L (4-35); Albumin Level 3.2 g/dL (3.5-5.1); Alkaline Phosphatase 112 U/L (38-126); Anion Gap 4 mmol/L (8-16); Aspartate Amino Transferase 19 U/L (14-36); Bilirubin,Total 0.3 mg/dL (0.2-1.3); Blood Urea Nitrogen 10 mg/dL (7-17); Calcium 8.4 mg/dL (8.4-10.2); Carbon Dioxide 33 mmol/L (22-30); Chloride 103 mmol/L (98-107); Estimated CRCL calculation 44 ml/min; Estimated Glomerular Filt Rate > 60; Glucose 126 mg/dL (65-110); Potassium 3.6 mmol/L (3.4-5.0); Sodium 140 mmol/L (137-145)
[2021-06-29 08:00] VITALS: PULSE 99; RESP 20; O2SAT 98
[2021-06-29] MEDS: CHOLECALCIFEROL 1,000 UNITS TABLET 2000 UNITS PO (08:34)
[2021-06-29] MEDS: DONEPEZIL HCL 5 MG TABLET PO (08:34)
[2021-06-29] MEDS: PANTOPRAZOLE 40 MG TABLET PO ×2 (08:34→19:55)
[2021-06-29] MEDS: SIMVASTATIN 20 MG TABLET BY MOUTH (08:34)
[2021-06-29] MEDS: cefTRIAXone 2 GM in SODIUM CHLORIDE 0.9% IV 100 ML 200 ML IVPB (12:54)
[2021-06-29 14:00] VITALS: BP 114/54; PULSE 109; RESP 16; TEMP 36.7; O2SAT 97
--- NOTE | 2021-06-29 16:03 | PM.DS ---
DS: Admitting Diagnosis Discharge Date 06/29/2021 Admitting Diagnosis confusion DS: Discharge Diagnosis Discharge Diagnosis (1) Incontinence: Code(s): R32 - Unspecified urinary incontinence Status: Acute Assessment and Plan: UTI present on admission associated with sepsis present on admission with leukocytosis and tachycardia. urine culture is growing Klebsiella pneumonia sensitive to Rocephin Completed 7 days course of Rocephin during the hospital stay. Admission WBC count of 40,000. WBC count has not normalized since admission. Fluctuating between 10-16. CT abdomen pelvis with no acute intra abdominal / pelvic process. Noted to have mild cardiomegaly with [id number] pericardial effusion. She denies any shortness of breath or chest pain. Echocardiogram performed 06/28/2021 revealed normal ejection fraction with small pericardial effusion. Will continue to monitor WBC count as an outpatient basis. (2) Dementia: Qualifiers: Dementia type: unspecified type Dementia behavioral disturbance: without behavioral disturbance Qualified Code(s): F03.90 - Unspecified dementia without behavioral disturbance Code(s): F03.90 - Unspecified dementia without behavioral disturbance Status: Chronic Assessment and Plan: Acute metabolic encephalopathy due to underlying UTI Improved on my evaluation as compared to what is mentioned on admission. (3) Essential (primary) hypertension: Code(s): I10 - Essential (primary) hypertension Status: Chronic Assessment and Plan: will continue home regimen and monitor (4) Hypothyroid: Qualifiers: Hypothyroidism type: unspecified Qualified Code(s): E03.9 - Hypothyroidism, unspecified Code(s): E03.9 - Hypothyroidism, unspecified Status: Chronic Assessment and Plan: will continue home regimen and monitor (5) Leukocytosis: Code(s): D72.829 - Elevated white blood cell count, unspecified Status: Acute Assessment and Plan: Blood culture has been negative No other source of infection. Finished course of treatment for UTI Need to follow-up with PCP closely DS: Summary Hospital Course Hospital Course: see above Time Spent with Patient Time attestation: Total time spent providing and/or coordinating discharge services: 45 minutes Exam Narrative: elderly frail, not in acute distress Patient is comfortable, NAD HEENT: eyes are clear and none icteric LUNGS: normal respiratory effort, clear to auscultation bilaterally ABD: not distended soft nontender Lower extremities: trace edema noted, no cyanosis or clubbing SKIN: nonjaundiced no rash Neuro: grossly intact severe dementia. no focal motor deficits DS: Data Data Completed and Pending Completed studies during hospitalization: Exam Type: CA echo doppler color flow Study Info Indications R07.9 - Chest pain, unspecified Complete two-dimensional, color flow and Doppler transthoracic echocardiogram is performed. Strain analysis performed. Summary 1. Complete two-dimensional, color flow and Doppler transthoracic echocardiogram is performed. 2. Left ventricular chamber dimension is normal. 3. Left ventricular systolic function is normal, estimated at 60-65%. 4. The left ventricular diastolic function is grade I diastolic dysfunction. 5. E/e' 11 is mildly elevated. 6. Global longitudinal strain is mildly abnormal at -16.4%. 7. There is trace tricuspid valve regurgitation. 8. There is trace pulmonic regurgitation. 9. There is small circumferential pericardial effusion. No cardiac tamponade. Left Ventricle E/e' 11 is mildly elevated. Global longitudinal strain is mildly abnormal at -16.4%. Left ventricular chamber dimension is normal. Left ventricular systolic function is normal, estimated at 60-65%. The left ventricular diastolic functi
[2021-06-29 17:47] LABS: EDCOVIDSCREEN Positive (Negative)
--- NOTE | 2021-06-29 18:19 | PCCCNOTE ---
Bedside RN Jose called from floor stating that patient was covid positive. Called to [facility] spoke with Ashley, patient can not be accepted with positive test, Called back up to the floor and notified Gracia. Per Jose Fagan in on the phone with the patient's family, Gracia to notify that patient will not be able to discharge to facility due to + test.
--- NOTE | 2021-06-29 18:20 | PM.IMPN ---
Progress Note: A&P Assessment and Plan (1) Incontinence: Code(s): R32 - Unspecified urinary incontinence Status: Acute Assessment and Plan: UTI present on admission associated with sepsis present on admission with leukocytosis and tachycardia. urine culture is growing Klebsiella pneumonia sensitive to Rocephin Completed 7 days course of Rocephin during the hospital stay. Admission WBC count of 40,000. WBC count has not normalized since admission. Fluctuating between 10-16. CT abdomen pelvis with no acute intra abdominal / pelvic process. Noted to have mild cardiomegaly with [id number] pericardial effusion. She denies any shortness of breath or chest pain. Echocardiogram performed 06/28/2021 revealed normal ejection fraction with small pericardial effusion. Will continue to monitor WBC count as an outpatient basis. (2) Dementia: Qualifiers: Dementia type: unspecified type Dementia behavioral disturbance: without behavioral disturbance Qualified Code(s): F03.90 - Unspecified dementia without behavioral disturbance Code(s): F03.90 - Unspecified dementia without behavioral disturbance Status: Chronic Assessment and Plan: Acute metabolic encephalopathy due to underlying UTI Improved on my evaluation as compared to what is mentioned on admission. (3) Essential (primary) hypertension: Code(s): I10 - Essential (primary) hypertension Status: Chronic Assessment and Plan: will continue home regimen and monitor (4) Hypothyroid: Qualifiers: Hypothyroidism type: unspecified Qualified Code(s): E03.9 - Hypothyroidism, unspecified Code(s): E03.9 - Hypothyroidism, unspecified Status: Chronic Assessment and Plan: will continue home regimen and monitor (5) Leukocytosis: Code(s): D72.829 - Elevated white blood cell count, unspecified Status: Acute Assessment and Plan: Blood culture has been negative No other source of infection. Finished course of treatment for UTI Need to follow-up with PCP closely (6) COVID-19: Code(s): U07.1 - COVID-19 Status: Acute Assessment and Plan: came back positive went screen for the time of discharge. This might have been an ongoing issue from her admission. As this was not screened on admission. Is not hypoxic short of breath at all chest x-ray on admission showed no acute cardiopulmonary disease. Will continue to monitor Subjective Date/time seen: 06/29/21 18:20 Interval history: patient is 75-year-old female was brought emergency department by her daughter, however at the time of my visit her daughter was not present and patient has severe dementia unable to provide any review of symptoms or history, later I spoke with the patient's daughter who lives next door to the patient and apparently patient had been more confused and was not behaving appropriately and this has happened part in the past when patient develops UTI so patient was brought to the emergency department her UA leuko urea and high leuko esterase suggesting patient has UTI patient started on ceftriaxone and will follow-up on urine sensitive and culture, patient is also found to significant leukocytosis 40,000, patient clinically stable will repeat the lab in the morning if it does persist will consult keyboarding teacher for further recommendation. no overnight events. Remains afebrile. Feels good. Was planned to be discharged hoever placement COVID test was done which came back positive. Review of Systems Review of Systems: All systems reviewed & are unremarkable except as noted in HPI and below Exam Narrative: elderly frail, not in acute distress Patient is comfortable, NAD HEENT: eyes are clear and none icteric LUNGS: normal respiratory effort, clear to auscultation bilaterally ABD: not distended soft nontender Lower extremities: trace edema noted, no cyanosis or clubbing SKI
[2021-06-29 20:00] VITALS: PULSE 80; RESP 16; O2SAT 95
[2021-06-29 20:39] LABS: SARS-CoV-2 RNA PCR Negative
[2021-06-29 20:58] VITALS: BP 118/54; PULSE 80; RESP 16; TEMP 36.6; O2SAT 95
--- NOTE | 2021-06-29 21:25 | PC.NURSE ---
Covid PCR was negative will discontinue isolation per Crystal.
[2021-06-30 04:24] VITALS: BP 124/54; PULSE 80; RESP 16; TEMP 36.6; O2SAT 98
[2021-06-30 05:35] LABS: Basophils Percent Auto 0.4 % (0.2-1.2); Eosinophils Absolute Auto 0.2 K/mm3 (0-0.3); Eosinophils Percent Auto 2.4 % (0-4.4); Hematocrit 30.4 % (37.0-47.0); Hemoglobin 9.1 g/dL (12.0-15.0); Immature Granulocyte Absolute 0.09 K/mm3 (0.00-0.031); Immature Granulocyte Percent A 0.9 % (0-0.5); Lymphocytes Absolute Auto 1.71 K/mm3 (0.9-3.2); Lymphocytes Percent Auto 17.3 % (18.3-44.2); Mean Corpuscular HGB Conc 29.9 g/dl (32-36); Mean Corpuscular Hemoglobin 25.5 pg (26-34); Mean Corpuscular Volume 85.2 fl (80-100); Mean Platelet Volume 8.7 fl (7.4-10.4); Monocytes Absolute Auto 0.5 K/mm3 (0.1-0.6); Neutrophils Absolute Auto 7.3 K/mm3 (1.3-6.7); Platelet Count Result 486 k/mm3 (150-375); Red Blood Count 3.57 M/mm3 (4.2-5.4); Red Cell Distribution Width 14.6 % (11.5-14.5); White Blood Count 9.9 K/mm3 (4.5-10.0)
[2021-06-30 05:48] LABS: Alanine Aminotransferase 13 U/L (4-35); Albumin Level 2.9 g/dL (3.5-5.1); Alkaline Phosphatase 94 U/L (38-126); Anion Gap 5 mmol/L (8-16); Aspartate Amino Transferase 23 U/L (14-36); Bilirubin,Total 0.3 mg/dL (0.2-1.3); Blood Urea Nitrogen 11 mg/dL (7-17); Carbon Dioxide 30 mmol/L (22-30); Chloride 102 mmol/L (98-107); Estimated CRCL calculation 50 ml/min; Estimated Glomerular Filt Rate > 60; Glucose 109 mg/dL (65-110); Potassium 3.5 mmol/L (3.4-5.0); Sodium 137 mmol/L (137-145)
[2021-06-30] MEDS: LEVOTHYROXINE SODIUM 50 MCG TABLET PO (05:58)
[2021-06-30] MEDS: PANTOPRAZOLE 40 MG TABLET PO ×2 (08:06→21:04)
[2021-06-30] MEDS: CHOLECALCIFEROL 1,000 UNITS TABLET 2000 UNITS PO (08:06)
[2021-06-30] MEDS: SIMVASTATIN 20 MG TABLET BY MOUTH (08:06)
[2021-06-30] MEDS: DONEPEZIL HCL 5 MG TABLET PO (08:06)
[2021-06-30 10:07] VITALS: BP 115/50; PULSE 96; RESP 16; TEMP 36.2; O2SAT 97
[2021-06-30 14:00] VITALS: BP 138/58; PULSE 96; RESP 16; TEMP 36.6; O2SAT 95
--- NOTE | 2021-06-30 15:16 | PM.IMPN ---
Progress Note: A&P Assessment and Plan (1) Incontinence: Code(s): R32 - Unspecified urinary incontinence Status: Acute Assessment and Plan: UTI present on admission associated with sepsis present on admission with leukocytosis and tachycardia. urine culture is growing Klebsiella pneumonia sensitive to Rocephin Completed 7 days course of Rocephin during the hospital stay. Admission WBC count of 40,000. WBC count has not normalized since admission. Fluctuating between 10-16. Today's WBC count is normal CT abdomen pelvis with no acute intra abdominal / pelvic process. Noted to have mild cardiomegaly with [id number]-[id number] pericardial effusion. She denies any shortness of breath or chest pain. Echocardiogram performed 06/28/2021 revealed normal ejection fraction with small pericardial effusion. Recheck CBC in 1 week (2) Dementia: Qualifiers: Dementia type: unspecified type Dementia behavioral disturbance: without behavioral disturbance Qualified Code(s): F03.90 - Unspecified dementia without behavioral disturbance Code(s): F03.90 - Unspecified dementia without behavioral disturbance Status: Chronic Assessment and Plan: Acute metabolic encephalopathy due to underlying UTI Improved on my evaluation as compared to what is mentioned on admission. (3) Essential (primary) hypertension: Code(s): I10 - Essential (primary) hypertension Status: Chronic Assessment and Plan: will continue home regimen and monitor (4) Hypothyroid: Qualifiers: Hypothyroidism type: unspecified Qualified Code(s): E03.9 - Hypothyroidism, unspecified Code(s): E03.9 - Hypothyroidism, unspecified Status: Chronic Assessment and Plan: will continue home regimen and monitor (5) Leukocytosis: Code(s): D72.829 - Elevated white blood cell count, unspecified Status: Acute Assessment and Plan: Blood culture has been negative No other source of infection. Finished course of treatment for UTI Need to follow-up with PCP closely (6) COVID-19: Code(s): U07.1 - COVID-19 Status: Acute Assessment and Plan: came back positive went screen for the time of discharge. This might have been an ongoing issue from her admission. As this was not screened on admission. Is not hypoxic short of breath at all chest x-ray on admission showed no acute cardiopulmonary disease. PCR test however came back negative senior care facility once another PCR test, will order 1 again. Disposition when nursing facility able to take her Subjective Date/time seen: 06/30/21 15:16 Interval history: patient is 75-year-old female was brought emergency department by her daughter, however at the time of my visit her daughter was not present and patient has severe dementia unable to provide any review of symptoms or history, later I spoke with the patient's daughter who lives next door to the patient and apparently patient had been more confused and was not behaving appropriately and this has happened part in the past when patient develops UTI so patient was brought to the emergency department her UA leuko urea and high leuko esterase suggesting patient has UTI patient started on ceftriaxone and will follow-up on urine sensitive and culture, patient is also found to significant leukocytosis 40,000, patient clinically stable will repeat the lab in the morning if it does persist will consult fire fighting equipment specialist for further recommendation. 06/29/2021 no overnight events. Remains afebrile. Feels good. Was planned to be discharged hoever placement COVID test was done which came back positive. 06/30/2021 working with therapy. The reported pain in her right ankle while working with therapy. Denies any shortness of breath or chest pain. No cough. COVID PCR came back negative. Review of Systems Review of Systems: All systems reviewed & are unremarkable except as noted
[2021-06-30 16:23] LABS: SARS-CoV-2 RNA PCR Negative
[2021-06-30 21:01] VITALS: BP 125/59; PULSE 93; RESP 16; TEMP 36.7; O2SAT 96
[2021-07-01 06:11] LABS: Basophils Percent Auto 0.2 % (0.2-1.2); Eosinophils Absolute Auto 0.2 K/mm3 (0-0.3); Eosinophils Percent Auto 2.5 % (0-4.4); Hematocrit 31.8 % (37.0-47.0); Hemoglobin 9.5 g/dL (12.0-15.0); Immature Granulocyte Absolute 0.08 K/mm3 (0.00-0.031); Immature Granulocyte Percent A 0.8 % (0-0.5); Lymphocytes Absolute Auto 1.45 K/mm3 (0.9-3.2); Lymphocytes Percent Auto 15.3 % (18.3-44.2); Mean Corpuscular HGB Conc 29.9 g/dl (32-36); Mean Corpuscular Hemoglobin 25.4 pg (26-34); Mean Platelet Volume 8.9 fl (7.4-10.4); Monocytes Absolute Auto 0.4 K/mm3 (0.1-0.6); Monocytes Percent Auto 4.5 % (2.6-8.5); Neutrophils Absolute Auto 7.3 K/mm3 (1.3-6.7); Neutrophils Percent Auto 76.7 % (45.5-73.1); Platelet Count Result 481 k/mm3 (150-375); Red Blood Count 3.74 M/mm3 (4.2-5.4); Red Cell Distribution Width 14.7 % (11.5-14.5); White Blood Count 9.5 K/mm3 (4.5-10.0)
[2021-07-01 06:19] VITALS: BP 119/48; PULSE 89; RESP 18; TEMP 36.6; O2SAT 99
[2021-07-01 06:21] LABS: Anion Gap 3 mmol/L (8-16); Blood Urea Nitrogen 14 mg/dL (7-17); Calcium 8.1 mg/dL (8.4-10.2); Carbon Dioxide 32 mmol/L (22-30); Chloride 103 mmol/L (98-107); Estimated CRCL calculation 44 ml/min; Estimated Glomerular Filt Rate > 60; Glucose 103 mg/dL (65-110); Potassium 3.6 mmol/L (3.4-5.0); Sodium 138 mmol/L (137-145)
[2021-07-01] MEDS: LEVOTHYROXINE SODIUM 50 MCG TABLET PO (06:25)
[2021-07-01] MEDS: CHOLECALCIFEROL 1,000 UNITS TABLET 2000 UNITS PO (07:43)
[2021-07-01] MEDS: PANTOPRAZOLE 40 MG TABLET PO ×2 (07:44→20:25)
[2021-07-01] MEDS: DONEPEZIL HCL 5 MG TABLET PO (07:44)
[2021-07-01] MEDS: SIMVASTATIN 20 MG TABLET BY MOUTH (07:44)
--- NOTE | 2021-07-01 09:55 | PM.IMPN ---
Progress Note: A&P Assessment and Plan (1) Incontinence: Code(s): R32 - Unspecified urinary incontinence Status: Acute Assessment and Plan: UTI present on admission associated with sepsis present on admission with leukocytosis and tachycardia. urine culture is growing Klebsiella pneumonia sensitive to Rocephin Completed 7 days course of Rocephin during the hospital stay. Admission WBC count of 40,000. WBC count has not normalized since admission. Fluctuating between 10-16. Today's WBC count is normal CT abdomen pelvis with no acute intra abdominal / pelvic process. Noted to have mild cardiomegaly with [id number] pericardial effusion. She denies any shortness of breath or chest pain. Echocardiogram performed 06/28/2021 revealed normal ejection fraction with small pericardial effusion. Recheck CBC in 1 week (2) Dementia: Qualifiers: Dementia type: unspecified type Dementia behavioral disturbance: without behavioral disturbance Qualified Code(s): F03.90 - Unspecified dementia without behavioral disturbance Code(s): F03.90 - Unspecified dementia without behavioral disturbance Status: Chronic Assessment and Plan: Acute metabolic encephalopathy due to underlying UTI Improved on my evaluation as compared to what is mentioned on admission. (3) Essential (primary) hypertension: Code(s): I10 - Essential (primary) hypertension Status: Chronic Assessment and Plan: will continue home regimen and monitor (4) Hypothyroid: Qualifiers: Hypothyroidism type: unspecified Qualified Code(s): E03.9 - Hypothyroidism, unspecified Code(s): E03.9 - Hypothyroidism, unspecified Status: Chronic Assessment and Plan: will continue home regimen and monitor (5) Leukocytosis: Code(s): D72.829 - Elevated white blood cell count, unspecified Status: Acute Assessment and Plan: Blood culture has been negative No other source of infection. Finished course of treatment for UTI Need to follow-up with PCP closely (6) COVID-19: Code(s): U07.1 - COVID-19 Status: Acute Assessment and Plan: came back positive went screen for the time of discharge. This might have been an ongoing issue from her admission. As this was not screened on admission. Is not hypoxic short of breath at all chest x-ray on admission showed no acute cardiopulmonary disease. PCR test however came back negative Pending placement Additional Plan 75-year-old female was brought emergency department by her daughter, with altered mental status. Found to have UTI 1)Acute encephalopathy: 2/2 UTI Improved 2)Sepsis 2/2UTI: 2/2 Klebsiella c/w ceftriaxone for 7 days improving leucocytosis 3)?Abnormality on CT scan: CT scan of abdomen reported to have cardiomegaly concerning for percardial effusion Will get echo 4)DVT ppx: SCD 5)Code:Full 6)Dispo: anticipate d/c to NH in AM if echo is unremarkable Subjective Date/time seen: 07/01/21 09:55 Interval history: patient is 75-year-old female was brought emergency department by her daughter, however at the time of my visit her daughter was not present and patient has severe dementia unable to provide any review of symptoms or history, later I spoke with the patient's daughter who lives next door to the patient and apparently patient had been more confused and was not behaving appropriately and this has happened part in the past when patient develops UTI so patient was brought to the emergency department her UA leuko urea and high leuko esterase suggesting patient has UTI patient started on ceftriaxone and will follow-up on urine sensitive and culture, patient is also found to significant leukocytosis 40,000, patient clinically stable will repeat the lab in the morning if it does persist will consult residence counselor for further recommendation. The reported pain in her right ankle while work
--- NOTE | 2021-07-01 11:26 | PCPTNOTE ---
Attempted PT treatment this date however pt declined at 9:56 and 11:20.
[2021-07-01 13:50] VITALS: BP 125/58; PULSE 104; RESP 18; TEMP 36.8; O2SAT 96
--- NOTE | 2021-07-01 15:19 | PM.IMPN ---
Progress Note: A&P Assessment and Plan (1) Incontinence: Code(s): R32 - Unspecified urinary incontinence Status: Acute Assessment and Plan: UTI present on admission associated with sepsis present on admission with leukocytosis and tachycardia. urine culture is growing Klebsiella pneumonia sensitive to Rocephin Completed 7 days course of Rocephin during the hospital stay. Admission WBC count of 40,000. WBC count has not normalized since admission. Fluctuating between 10-16. Today's WBC count is normal CT abdomen pelvis with no acute intra abdominal / pelvic process. Noted to have mild cardiomegaly with mqsqd-aj-sqdhslnw pericardial effusion. She denies any shortness of breath or chest pain. Echocardiogram performed 06/28/2021 revealed normal ejection fraction with small pericardial effusion. Recheck CBC in 1 week (2) Dementia: Qualifiers: Dementia type: unspecified type Dementia behavioral disturbance: without behavioral disturbance Qualified Code(s): F03.90 - Unspecified dementia without behavioral disturbance Code(s): F03.90 - Unspecified dementia without behavioral disturbance Status: Chronic Assessment and Plan: Acute metabolic encephalopathy due to underlying UTI Improved on my evaluation as compared to what is mentioned on admission. (3) Essential (primary) hypertension: Code(s): I10 - Essential (primary) hypertension Status: Chronic Assessment and Plan: will continue home regimen and monitor (4) Hypothyroid: Qualifiers: Hypothyroidism type: unspecified Qualified Code(s): E03.9 - Hypothyroidism, unspecified Code(s): E03.9 - Hypothyroidism, unspecified Status: Chronic Assessment and Plan: will continue home regimen and monitor (5) Leukocytosis: Code(s): D72.829 - Elevated white blood cell count, unspecified Status: Acute Assessment and Plan: Blood culture has been negative No other source of infection. Finished course of treatment for UTI Need to follow-up with PCP closely (6) COVID-19: Code(s): U07.1 - COVID-19 Status: Acute Assessment and Plan: came back positive went screen for the time of discharge. This might have been an ongoing issue from her admission. As this was not screened on admission. Is not hypoxic short of breath at all chest x-ray on admission showed no acute cardiopulmonary disease. PCR test however came back negative assisted facility once another PCR test, ORDER AND 2ND TEST CAME BACK NEGATIVE WELL. Disposition when nursing facility able to take her (7) Ankle pain: Code(s): M25.579 - Pain in unspecified ankle and joints of unspecified foot Status: Acute Assessment and Plan: X-RAY NEGATIVE FOR ANY OSSEOUS INJURY. LIKELY SPRAIN CONTINUE SUPPORTIVE TREATMENT Subjective Date/time seen: 07/01/21 15:19 Interval history: patient is 75-year-old female was brought emergency department by her daughter, however at the time of my visit her daughter was not present and patient has severe dementia unable to provide any review of symptoms or history, later I spoke with the patient's daughter who lives next door to the patient and apparently patient had been more confused and was not behaving appropriately and this has happened part in the past when patient develops UTI so patient was brought to the emergency department her UA leuko urea and high leuko esterase suggesting patient has UTI patient started on ceftriaxone and will follow-up on urine sensitive and culture, patient is also found to significant leukocytosis 40,000, patient clinically stable will repeat the lab in the morning if it does persist will consult hand drawer in helper for further recommendation. 06/29/2021 no overnight events. Remains afebrile. Feels good. Was planned to be discharged hoever placement COVID test was done which came back positive. 06/30/2021 working with
[2021-07-01 21:27] VITALS: BP 124/58; PULSE 97; RESP 16; TEMP 36.3; O2SAT 96
[2021-07-02] MEDS: LEVOTHYROXINE SODIUM 50 MCG TABLET PO (06:24)
[2021-07-02 06:29] VITALS: BP 138/59; PULSE 101; RESP 16; TEMP 36.5; O2SAT 94
[2021-07-02] MEDS: CHOLECALCIFEROL 1,000 UNITS TABLET 2000 UNITS PO (08:20)
[2021-07-02] MEDS: PANTOPRAZOLE 40 MG TABLET PO ×2 (08:21→19:52)
[2021-07-02] MEDS: SIMVASTATIN 20 MG TABLET BY MOUTH (08:21)
[2021-07-02] MEDS: DONEPEZIL HCL 5 MG TABLET PO (08:21)
[2021-07-02] MEDS: ACETAMINOPHEN 325 MG TABLET 650 MG PO (08:56)
--- NOTE | 2021-07-02 14:03 | PM.IMPN ---
Progress Note: A&P Assessment and Plan (1) Incontinence: Code(s): R32 - Unspecified urinary incontinence Status: Acute Assessment and Plan: UTI present on admission associated with sepsis present on admission with leukocytosis and tachycardia. urine culture is growing Klebsiella pneumonia sensitive to Rocephin Completed 7 days course of Rocephin during the hospital stay. Admission WBC count of 40,000. WBC count has not normalized since admission. Fluctuating between 10-16. Today's WBC count is normal CT abdomen pelvis with no acute intra abdominal / pelvic process. Noted to have mild cardiomegaly with avuvq-oy-iozqiywj pericardial effusion. She denies any shortness of breath or chest pain. Echocardiogram performed 06/28/2021 revealed normal ejection fraction with small pericardial effusion. Recheck CBC in 1 week from discharge (2) Dementia: Qualifiers: Dementia type: unspecified type Dementia behavioral disturbance: without behavioral disturbance Qualified Code(s): F03.90 - Unspecified dementia without behavioral disturbance Code(s): F03.90 - Unspecified dementia without behavioral disturbance Status: Chronic Assessment and Plan: Acute metabolic encephalopathy due to underlying UTI Improved on my evaluation as compared to what is mentioned on admission. (3) Essential (primary) hypertension: Code(s): I10 - Essential (primary) hypertension Status: Chronic Assessment and Plan: will continue home regimen and monitor (4) Hypothyroid: Qualifiers: Hypothyroidism type: unspecified Qualified Code(s): E03.9 - Hypothyroidism, unspecified Code(s): E03.9 - Hypothyroidism, unspecified Status: Chronic Assessment and Plan: will continue home regimen and monitor (5) Leukocytosis: Code(s): D72.829 - Elevated white blood cell count, unspecified Status: Acute Assessment and Plan: Blood culture has been negative No other source of infection. Finished course of treatment for UTI Need to follow-up with PCP closely (6) COVID-19: Code(s): U07.1 - COVID-19 Status: Acute Assessment and Plan: came back positive went screen for the time of discharge. This might have been an ongoing issue from her admission. As this was not screened on admission. Is not hypoxic short of breath at all chest x-ray on admission showed no acute cardiopulmonary disease. PCR test however came back negative skilled nursing facility once another PCR test, ORDER AND 2ND TEST CAME BACK NEGATIVE WELL. Disposition when nursing facility able to take her (7) Ankle pain: Code(s): M25.579 - Pain in unspecified ankle and joints of unspecified foot Status: Acute Assessment and Plan: X-RAY NEGATIVE FOR ANY OSSEOUS INJURY. LIKELY SPRAIN CONTINUE SUPPORTIVE TREATMENT Subjective Date/time seen: 07/02/21 14:03 Interval history: patient is 75-year-old female was brought emergency department by her daughter, however at the time of my visit her daughter was not present and patient has severe dementia unable to provide any review of symptoms or history, later I spoke with the patient's daughter who lives next door to the patient and apparently patient had been more confused and was not behaving appropriately and this has happened part in the past when patient develops UTI so patient was brought to the emergency department her UA leuko urea and high leuko esterase suggesting patient has UTI patient started on ceftriaxone and will follow-up on urine sensitive and culture, patient is also found to significant leukocytosis 40,000, patient clinically stable will repeat the lab in the morning if it does persist will consult metalizer for further recommendation. 06/29/2021 no overnight events. Remains afebrile. Feels good. Was planned to be discharged hoever placement COVID test was done which came back positive. 07/01/19
[2021-07-02 14:08] VITALS: BP 146/71; PULSE 91; RESP 18; TEMP 36.2; O2SAT 100
[2021-07-02 19:50] VITALS: BP 135/65; PULSE 120; RESP 16; TEMP 36.8; O2SAT 93
[2021-07-03 06:00] VITALS: BP 124/60; PULSE 115; RESP 20; TEMP 36; O2SAT 94
[2021-07-03] MEDS: LEVOTHYROXINE SODIUM 50 MCG TABLET PO (06:02)
[2021-07-03] MEDS: CHOLECALCIFEROL 1,000 UNITS TABLET 2000 UNITS PO (08:40)
[2021-07-03] MEDS: SIMVASTATIN 20 MG TABLET BY MOUTH (08:40)
[2021-07-03] MEDS: DONEPEZIL HCL 5 MG TABLET PO (08:40)
[2021-07-03] MEDS: PANTOPRAZOLE 40 MG TABLET PO ×2 (08:40→20:05)
[2021-07-03 11:00] VITALS: BP 145/73; PULSE 120; RESP 16; TEMP 36.8; O2SAT 93
[2021-07-03] MEDS: SODIUM CHLORIDE 0.9% IV 500 ML IV CONT (11:57)
--- NOTE | 2021-07-03 12:35 | PM.IMPN ---
Progress Note: A&P Assessment and Plan (1) Incontinence: Code(s): R32 - Unspecified urinary incontinence Status: Acute Assessment and Plan: UTI present on admission associated with sepsis present on admission with leukocytosis and tachycardia. urine culture is growing Klebsiella pneumonia sensitive to Rocephin Completed 7 days course of Rocephin during the hospital stay. Admission WBC count of 40,000. WBC count has not normalized since admission. Fluctuating between 10-16. Today's WBC count is normal CT abdomen pelvis with no acute intra abdominal / pelvic process. Noted to have mild cardiomegaly with ohvbm-mt-ptufgqhd pericardial effusion. She denies any shortness of breath or chest pain. Echocardiogram performed 06/28/2021 revealed normal ejection fraction with small pericardial effusion. Recheck CBC in 1 week from discharge (2) Dementia: Qualifiers: Dementia type: unspecified type Dementia behavioral disturbance: without behavioral disturbance Qualified Code(s): F03.90 - Unspecified dementia without behavioral disturbance Code(s): F03.90 - Unspecified dementia without behavioral disturbance Status: Chronic Assessment and Plan: Acute metabolic encephalopathy due to underlying UTI Improved on my evaluation as compared to what is mentioned on admission. (3) Essential (primary) hypertension: Code(s): I10 - Essential (primary) hypertension Status: Chronic Assessment and Plan: will continue home regimen and monitor (4) Hypothyroid: Qualifiers: Hypothyroidism type: unspecified Qualified Code(s): E03.9 - Hypothyroidism, unspecified Code(s): E03.9 - Hypothyroidism, unspecified Status: Chronic Assessment and Plan: will continue home regimen and monitor (5) Leukocytosis: Code(s): D72.829 - Elevated white blood cell count, unspecified Status: Acute Assessment and Plan: Blood culture has been negative No other source of infection. Finished course of treatment for UTI Need to follow-up with PCP closely (6) COVID-19: Code(s): U07.1 - COVID-19 Status: Acute Assessment and Plan: came back positive went screen for the time of discharge. This might have been an ongoing issue from her admission. As this was not screened on admission. Is not hypoxic short of breath at all chest x-ray on admission showed no acute cardiopulmonary disease. PCR test however came back negative residential facility once another PCR test, ORDER AND 2ND TEST CAME BACK NEGATIVE WELL. Disposition when nursing facility able to take her (7) Ankle pain: Code(s): M25.579 - Pain in unspecified ankle and joints of unspecified foot Status: Acute Assessment and Plan: X-RAY NEGATIVE FOR ANY OSSEOUS INJURY. LIKELY SPRAIN CONTINUE SUPPORTIVE TREATMENT (8) Tachycardia: Code(s): R00.0 - Tachycardia, unspecified Status: Acute Assessment and Plan: Unclear etiology. No fever or any pain reported Recheck her labs today for evaluation Will give fluid bolus to see if this will improve. Started on DVT prophylaxis as well. Not hypoxic. Will get an EKG Additional Plan DVT prophylaxis: Lovenox Subjective Date/time seen: 07/03/21 12:35 Interval history: patient is 75-year-old female was brought emergency department by her daughter, however at the time of my visit her daughter was not present and patient has severe dementia unable to provide any review of symptoms or history, later I spoke with the patient's daughter who lives next door to the patient and apparently patient had been more confused and was not behaving appropriately and this has happened part in the past when patient develops UTI so patient was brought to the emergency department her UA leuko urea and high leuko esterase suggesting patient has UTI patient started on ceftriaxone and will follow-up on urine sensitive and cul
--- NOTE | 2021-07-03 12:39 | ECG_ITS ---
Measurements Intervals [place] Rate: 116 P: 29 IN: 128 QRS: 68 QRSD: 70 T: 32 QT: 325 QTc: 452 Interpretive Statements SINUS TACHYCARDIA NONSPECIFIC T-WAVE ABNORMALITY POOR R-WAVE PROGRESSION ABNORMAL ECG COMPARED TO ECG 06/22/2021 09:32:59 T-WAVE ABNORMALITY NOW PRESENT Electronically Signed On 07-03-2021 13:21:38 CDT by Darian Alonzo M.D.
[2021-07-03 12:52] LABS: Basophils Percent Auto 0.2 % (0.2-1.2); Eosinophils Absolute Auto 0.1 K/mm3 (0-0.3); Eosinophils Percent Auto 0.3 % (0-4.4); Hematocrit 32.3 % (37.0-47.0); Hemoglobin 9.8 g/dL (12.0-15.0); Immature Granulocyte Absolute 0.14 K/mm3 (0.00-0.031); Immature Granulocyte Percent A 0.6 % (0-0.5); Lymphocytes Absolute Auto 1.55 K/mm3 (0.9-3.2); Lymphocytes Percent Auto 7.1 % (18.3-44.2); Mean Corpuscular HGB Conc 30.3 g/dl (32-36); Mean Corpuscular Hemoglobin 25.2 pg (26-34); Monocytes Absolute Auto 0.7 K/mm3 (0.1-0.6); Monocytes Percent Auto 3.4 % (2.6-8.5); Neutrophils Absolute Auto 19.3 K/mm3 (1.3-6.7); Neutrophils Percent Auto 88.4 % (45.5-73.1); Platelet Count Result 579 k/mm3 (150-375); Red Blood Count 3.89 M/mm3 (4.2-5.4); Red Cell Distribution Width 14.6 % (11.5-14.5); White Blood Count 21.8 K/mm3 (4.5-10.0)
[2021-07-03 13:02] LABS: Alanine Aminotransferase 39 U/L (4-35); Albumin Level 3.1 g/dL (3.5-5.1); Alkaline Phosphatase 145 U/L (38-126); Anion Gap 5 mmol/L (8-16); Aspartate Amino Transferase 78 U/L (14-36); Bilirubin,Total 0.5 mg/dL (0.2-1.3); Blood Urea Nitrogen 18 mg/dL (7-17); Calcium 7.6 mg/dL (8.4-10.2); Carbon Dioxide 28 mmol/L (22-30); Chloride 96 mmol/L (98-107); Estimated CRCL calculation 44 ml/min; Estimated Glomerular Filt Rate > 60; Glucose 197 mg/dL (65-110); Magnesium 1.9 mg/dL (1.6-2.3); Potassium 4.3 mmol/L (3.4-5.0); Sodium 129 mmol/L (137-145)
[2021-07-03] MEDS: ENOXAPARIN 40 MG/0.4 ML SYRINGE SUB-Q (13:49)
[2021-07-03 13:55] LABS: Add Urine Microscopic? YES; Appearance Urine Cloudy (Clear); Bilirubin Urine Negative (Negative); Blood Urine 1+ (Negative); Color Urine Yellow (Yellow); Glucose Urine UA Negative (Negative); Ketones Urine Negative (Negative); Leukocyte Esterase Ur Negative LEU/UL (NEGATIVE); Mucus Urine Rare /lpf; Nitrate Urine Negative (Negative); Protein Urine 1+ mg/dL (Negative); RBC Urine 0-2 /hpf (0-2); Specific Grav Ur 1.024 (1.001-1.035); Squamous Epithelial Cell Urine Many /hpf (Few)
[2021-07-03 14:18] VITALS: BP 118/72; PULSE 119; RESP 18; TEMP 36.8; O2SAT 95
[2021-07-03 22:00] VITALS: BP 138/69; PULSE 99; RESP 18; TEMP 36.1; O2SAT 98
[2021-07-04 05:42] LABS: Basophils Percent Auto 0.2 % (0.2-1.2); Eosinophils Absolute Auto 0.1 K/mm3 (0-0.3); Eosinophils Percent Auto 0.5 % (0-4.4); Hematocrit 29.6 % (37.0-47.0); Hemoglobin 9.2 g/dL (12.0-15.0); Immature Granulocyte Absolute 0.16 K/mm3 (0.00-0.031); Immature Granulocyte Percent A 0.8 % (0-0.5); Lymphocytes Absolute Auto 1.44 K/mm3 (0.9-3.2); Lymphocytes Percent Auto 7.6 % (18.3-44.2); Mean Corpuscular HGB Conc 31.1 g/dl (32-36); Mean Corpuscular Hemoglobin 25.5 pg (26-34); Mean Platelet Volume 9.1 fl (7.4-10.4); Monocytes Absolute Auto 0.8 K/mm3 (0.1-0.6); Monocytes Percent Auto 4.2 % (2.6-8.5); Neutrophils Absolute Auto 16.3 K/mm3 (1.3-6.7); Neutrophils Percent Auto 86.7 % (45.5-73.1); Platelet Count Result 558 k/mm3 (150-375); Red Blood Count 3.61 M/mm3 (4.2-5.4); Red Cell Distribution Width 14.5 % (11.5-14.5); White Blood Count 18.9 K/mm3 (4.5-10.0)
[2021-07-04 05:53] LABS: Potassium 3.9 mmol/L (3.4-5.0)
[2021-07-04 05:54] LABS: Alanine Aminotransferase 28 U/L (4-35); Alkaline Phosphatase 152 U/L (38-126); Anion Gap 7 mmol/L (8-16); Aspartate Amino Transferase 30 U/L (14-36); Bilirubin,Total 0.4 mg/dL (0.2-1.3); Blood Urea Nitrogen 12 mg/dL (7-17); Calcium 7.9 mg/dL (8.4-10.2); Carbon Dioxide 27 mmol/L (22-30); Chloride 98 mmol/L (98-107); Estimated CRCL calculation 44 ml/min; Estimated Glomerular Filt Rate > 60; Glucose 120 mg/dL (65-110); Sodium 132 mmol/L (137-145)
[2021-07-04 06:00] VITALS: BP 112/73; PULSE 102; RESP 18; TEMP 35.9; O2SAT 94
[2021-07-04] MEDS: LEVOTHYROXINE SODIUM 50 MCG TABLET PO (06:23)
[2021-07-04] MEDS: ACETAMINOPHEN 325 MG TABLET 650 MG PO ×2 (06:29→12:04)
[2021-07-04 08:08] LABS: Lipase 77 U/L (23-300)
[2021-07-04] MEDS: DONEPEZIL HCL 5 MG TABLET PO (08:39)
[2021-07-04] MEDS: PANTOPRAZOLE 40 MG TABLET PO ×2 (08:39→20:07)
[2021-07-04] MEDS: SIMVASTATIN 20 MG TABLET BY MOUTH (08:39)
[2021-07-04] MEDS: ENOXAPARIN 40 MG/0.4 ML SYRINGE SUB-Q (08:39)
[2021-07-04] MEDS: CHOLECALCIFEROL 1,000 UNITS TABLET 2000 UNITS PO (08:39)
--- NOTE | 2021-07-04 09:23 | PM.IMPN ---
Progress Note: A&P Assessment and Plan (1) Incontinence: Code(s): R32 - Unspecified urinary incontinence Status: Acute Assessment and Plan: UTI present on admission associated with sepsis present on admission with leukocytosis and tachycardia. urine culture is growing Klebsiella pneumonia sensitive to Rocephin Completed 7 days course of Rocephin during the hospital stay. Admission WBC count of 40,000. WBC count has not normalized since admission. Fluctuating between 10-16. Today's WBC count is normal CT abdomen pelvis with no acute intra abdominal / pelvic process. Noted to have mild cardiomegaly with oacxt-di-krjocseb pericardial effusion. She denies any shortness of breath or chest pain. Echocardiogram performed 06/28/2021 revealed normal ejection fraction with small pericardial effusion. Recheck CBC for tachycardia showed elevated white cell count to 21,000. Cultures reordered. CT chest abdomen pelvis showed new left pleural effusion with hywc-ga-bkhsjdqw pericardial effusion. Possible atelectasis/pneumonia There is also inflammatory change in the right lower quadrant including thickening of the right anterior para renal fossa UA was contaminated. Urine culture is ordered. Possible pancreatitis however lipase was normal Re-initiated antibiotics of vancomycin and cefepime. WBC count improved down to 1800 on 07/04/2021 with improvement in her heart rate as well. BNP was ordered which came back elevated 1800. There is a possibility of this fluid to be related to fluid overload fluid resuscitation that she had when she came in for her sepsis. However with leukocytosis underlying inflammation/infection need to be ruled out. Discussed this finding her daughter Elvira over the phone 07/04/2021 and discussed option of getting the fluid tap. She is agreeable with the plan. Will order ultrasound-guided thoracentesis for further evaluation of this left sided pleural effusion which is new (2) Dementia: Qualifiers: Dementia behavioral disturbance: without behavioral disturbance Dementia type: unspecified type Qualified Code(s): F03.90 - Unspecified dementia without behavioral disturbance Code(s): F03.90 - Unspecified dementia without behavioral disturbance Status: Chronic Assessment and Plan: Acute metabolic encephalopathy due to underlying UTI Improved on my evaluation as compared to what is mentioned on admission. (3) Essential (primary) hypertension: Code(s): I10 - Essential (primary) hypertension Status: Chronic Assessment and Plan: will continue home regimen and monitor (4) Hypothyroid: Qualifiers: Hypothyroidism type: unspecified Qualified Code(s): E03.9 - Hypothyroidism, unspecified Code(s): E03.9 - Hypothyroidism, unspecified Status: Chronic Assessment and Plan: will continue home regimen and monitor (5) Leukocytosis: Code(s): D72.829 - Elevated white blood cell count, unspecified Status: Acute Assessment and Plan: Blood culture has been negative No other source of infection. Finished course of treatment for UTI Need to follow-up with PCP closely (6) COVID-19: Code(s): U07.1 - COVID-19 Status: Acute Assessment and Plan: came back positive went screen for the time of discharge. This might have been an ongoing issue from her admission. As this was not screened on admission. Is not hypoxic short of breath at all chest x-ray on admission showed no acute cardiopulmonary disease. PCR test however came back negative [facility] facility once another PCR test, ORDER AND 2ND TEST CAME BACK NEGATIVE WELL. Disposition when nursing facility able to take her (7) Ankle pain: Code(s): M25.579 - Pain in unspecified ankle and joints of unspecified foot Status: Acute Assessment and Plan: X-RAY NEGATIVE FOR ANY OSSEOUS INJURY. LIKELY SPRAIN CONTINUE SUPPORTIVE TREATMENT
[2021-07-04 10:08] LABS: NT Pro B Type Natriuretic Pept 1860 pg/mL (5-100)
[2021-07-04 14:00] VITALS: BP 143/70; PULSE 96; RESP 16; TEMP 36.1; O2SAT 96
--- NOTE | 2021-07-04 14:28 | PCPTNOTE ---
Patient refused treatment this session due to patient wanting to rest and take a nap at this time.
[2021-07-04 20:00] VITALS: PULSE 116; RESP 18; O2SAT 92
[2021-07-04 21:05] VITALS: BP 123/57; PULSE 116; RESP 18; TEMP 36.8; O2SAT 92
[2021-07-05 05:38] LABS: Basophils Absolute Auto 0.1 K/mm3 (0.0-0.1); Basophils Percent Auto 0.3 % (0.2-1.2); Eosinophils Absolute Auto 0.1 K/mm3 (0-0.3); Eosinophils Percent Auto 0.6 % (0-4.4); Hematocrit 33.1 % (37.0-47.0); Hemoglobin 9.8 g/dL (12.0-15.0); Immature Granulocyte Percent A 0.9 % (0-0.5); Lymphocytes Absolute Auto 1.48 K/mm3 (0.9-3.2); Lymphocytes Percent Auto 6.7 % (18.3-44.2); Mean Corpuscular HGB Conc 29.6 g/dl (32-36); Mean Corpuscular Hemoglobin 25.5 pg (26-34); Mean Corpuscular Volume 86.2 fl (80-100); Mean Platelet Volume 9.6 fl (7.4-10.4); Monocytes Percent Auto 4.3 % (2.6-8.5); Neutrophils Absolute Auto 19.1 K/mm3 (1.3-6.7); Neutrophils Percent Auto 87.2 % (45.5-73.1); Platelet Count Result 591 k/mm3 (150-375); Red Blood Count 3.84 M/mm3 (4.2-5.4); Red Cell Distribution Width 14.7 % (11.5-14.5); White Blood Count 21.9 K/mm3 (4.5-10.0)
[2021-07-05 05:49] LABS: Alanine Aminotransferase 25 U/L (4-35); Albumin Level 3.1 g/dL (3.5-5.1); Alkaline Phosphatase 193 U/L (38-126); Anion Gap 9 mmol/L (8-16); Aspartate Amino Transferase 30 U/L (14-36); Bilirubin,Total 0.5 mg/dL (0.2-1.3); Blood Urea Nitrogen 11 mg/dL (7-17); Carbon Dioxide 28 mmol/L (22-30); Chloride 98 mmol/L (98-107); Estimated CRCL calculation 39 ml/min; Estimated Glomerular Filt Rate > 60; Glucose 130 mg/dL (65-110); Magnesium 2.1 mg/dL (1.6-2.3); Potassium 4.2 mmol/L (3.4-5.0); Sodium 135 mmol/L (137-145)
[2021-07-05 05:52] LABS: INR 1.4; Prothrombin Time 16.7 Seconds (11.1-14.7)
[2021-07-05 05:53] LABS: Partial Thromboplastin Time 43.8 SECONDS (22.3-36.8)
[2021-07-05 06:15] VITALS: BP 105/65; PULSE 99; RESP 16; TEMP 38; O2SAT 92
[2021-07-05 06:44] LABS: Hypochromasia 1+ (NORMAL); Platelet Estimate Increased (Adequate)
[2021-07-05 12:42] VITALS: BP 126/66; PULSE 120; RESP 17; O2SAT 91
[2021-07-05 12:43] VITALS: BP 119/66; PULSE 115; RESP 16; O2SAT 97
--- NOTE | 2021-07-05 13:26 | PM.DS ---
DS: Admitting Diagnosis Discharge Date 07/05/2021 Admitting Diagnosis acute mental status change DS: Discharge Diagnosis Discharge Diagnosis (1) Incontinence: Code(s): R32 - Unspecified urinary incontinence Status: Acute Assessment and Plan: UTI present on admission associated with sepsis present on admission with leukocytosis and tachycardia. urine culture is growing Klebsiella pneumonia sensitive to Rocephin Completed 7 days course of Rocephin during the hospital stay. Admission WBC count of 40,000. WBC count has not normalized since admission. Fluctuating between 10-16. Today's WBC count is normal CT abdomen pelvis with no acute intra abdominal / pelvic process. Noted to have mild cardiomegaly with iohac-ve-wiufehin pericardial effusion. She denies any shortness of breath or chest pain. Echocardiogram performed 06/28/2021 revealed normal ejection fraction with small pericardial effusion. Recheck CBC for tachycardia showed elevated white cell count to 21,000. Cultures reordered. CT chest abdomen pelvis showed new left pleural effusion with fabr-my-rcrvceuy pericardial effusion. Possible atelectasis/pneumonia There is also inflammatory change in the right lower quadrant including thickening of the right anterior para renal fossa UA was contaminated. Urine culture is ordered. Possible pancreatitis however lipase was normal Re-initiated antibiotics of vancomycin and cefepime. WBC count improved down to 1800 on 07/04/2021 with improvement in her heart rate as well. BNP was ordered which came back elevated 1800. There is a possibility of this fluid to be related to fluid overload fluid resuscitation that she had when she came in for her sepsis. However with leukocytosis underlying inflammation/infection need to be ruled out. Discussed this finding her daughter Elvira over the phone 07/04/2021 and discussed option of getting the fluid tap. She is agreeable with the plan. Will order ultrasound-guided thoracentesis for further evaluation of this left sided pleural effusion which is new (2) Dementia: Qualifiers: Dementia behavioral disturbance: without behavioral disturbance Dementia type: unspecified type Qualified Code(s): F03.90 - Unspecified dementia without behavioral disturbance Code(s): F03.90 - Unspecified dementia without behavioral disturbance Status: Chronic Assessment and Plan: Acute metabolic encephalopathy due to underlying UTI Improved on my evaluation as compared to what is mentioned on admission. (3) Essential (primary) hypertension: Code(s): I10 - Essential (primary) hypertension Status: Chronic Assessment and Plan: will continue home regimen and monitor (4) Hypothyroid: Qualifiers: Hypothyroidism type: unspecified Qualified Code(s): E03.9 - Hypothyroidism, unspecified Code(s): E03.9 - Hypothyroidism, unspecified Status: Chronic Assessment and Plan: will continue home regimen and monitor (5) Leukocytosis: Code(s): D72.829 - Elevated white blood cell count, unspecified Status: Acute Assessment and Plan: Blood culture has been negative No other source of infection. Finished course of treatment for UTI Need to follow-up with PCP closely (6) COVID-19: Code(s): U07.1 - COVID-19 Status: Acute Assessment and Plan: came back positive went screen for the time of discharge. This might have been an ongoing issue from her admission. As this was not screened on admission. Is not hypoxic short of breath at all chest x-ray on admission showed no acute cardiopulmonary disease. PCR test however [facility] once another PCR test, ORDER AND 2ND TEST CAME BACK NEGATIVE WELL. Disposition when nursing facility able to take her (7) Ankle pain: Code(s): M25.579 - Pain in unspecified ankle and joints of unspecified foot Status: Acute
[2021-07-05 13:58] LABS: Pleural fluid source Pleural fluid
[2021-07-05 13:59] LABS: Appearance Pleural Fluid Hazy (Clear); Color Pleural Fluid Yellow (Colorless)
[2021-07-05 14:08] LABS: Lymphocytes Pleural Fluid 11 %; Monocytes Pleural Fluid 5 %; Neutrophils Pleural Fluid 82 % (0-25)
[2021-07-05 14:09] LABS: Macrophages Pleural Fluid 1 %
[2021-07-05 14:29] LABS: EDCOVIDSCREEN Negative (Negative)
[2021-07-05 14:44] VITALS: BP 106/68; PULSE 102; RESP 16; TEMP 36.9; O2SAT 94
[2021-07-05 15:16] LABS: pH Pleural Fluid 7.462 (7.210-7.500)
[2021-07-08 09:55] LABS: Glucose Pleural Fluid 98 mg/dL; LDH Pleural Fluid 114 U/L
[2021-07-08 12:14] LABS: Albumin Pleural Fluid 1.2 g/dL
--- NOTE | 2021-07-08 17:56 | ED.GENADULT ---
HPI - General Adult General Chief complaint: Urogenital-Female Stated complaint: UTI? Time Seen by Provider: 06/22/21 08:48 Source: patient and family History of Present Illness HPI narrative: Patient 75 years old white female came to the emergency room with her daughter, patient has severe dementia, unable to provide any history. Patient came because of increased confusion in the last few days. In the last few days. In the last few days. 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 Lives in own home with her daughter next door. Daughter is a durable power divorce attorney for healthcare. The patient is listed as a full code. 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 Smoking status: Never smoker Second hand tobacco smoke exposure: Yes Alcohol intake: unknown Substance use: never Substance use type: does not use Spiritual care concerns: No Exam Narrative: General appearance: Well-developed, well-nourished Skin: Normal color Head: Normocephalic, nontraumatic Eyes: Clear conjunctiva ENT: Oropharynx normal, ears normal, nose normal Neck: Supple, nontender Chest and respiratory: Airway patent, no respiratory distress, no accessory muscle use Heart: Regular rate/rhythm Abdomen: Soft, nontender, no organomegaly, quiet bowel sounds Vascular: Normal peripheral pulses, normal capillary refill. Musculoskeletal: Normal range of motion, nontender back Neurologic: Alert and disoriented x4 Course Course Emergency Course: Stable Vital Signs Vital signs: Vital Signs Pulse Rate 118 H 06/22/21 08:47 Respiratory Rate 18 06/22/21 08:47 Blood Pressure 139/66 06/22/21 08:47 Pulse Oximetry 99 06/22/21 08:47 Temperature 36.9 C 07/05/21 14:44 Pulse Rate 102 H 07/05/21 14:44 Respiratory Rate 16 07/05/21 14:44 Blood Pressure 106/68 07/05/21 14:44 Pulse Oximetry 94 07/05/21 14:44 Medical Decision Making MDM Narrative Medical decision making narrative: Patient presents with confusion. Differential diagnosis as below Differential Diagnosis Differential Diagnosis: Electrolyte imbalance, urinary tract infection, pneumonia, depression Vital Signs Vital Signs: Vital Signs Pulse Rate 118 H 06/22/21 08:47 Respiratory Rate 18 06/22/21 08:47 Blood Pressure 139/66 06/22/21 08:47 Pulse Oximetry 99 06/22/21 08:47 Temperature 36.9 C 07/05/21 14:44 Pulse Rate 102 H 07/05/21 14:44 Respiratory Rate 16 07/05/21 14:44
[2021-07-12 21:20] LABS: Amylase, Pleural Fluid 13 U/L
== END 2021-07-05 17:15 | DRG 689 ==
LOC: ANHED 09:13 → ANH3MED 12:29
PROVIDERS: Internal Medicine; Admitting Provider Family Medicine; Emergency Provider Emergency Medicine; PCP Family Medicine; Visit Provider Internal Medicine
DX: N39.0 Urinary tract infection, site not specified (principal); G93.41 Metabolic encephalopathy; I31.3 Pericardial effusion (noninflammatory); J90 Pleural effusion, not elsewhere classified; B96.1 Klebsiella pneumoniae [K. pneumoniae] as the cause of diseases classified elsewhere; Z20.822 Contact with and (suspected) exposure to COVID-19; R32 Unspecified urinary incontinence; F03.90 Unspecified dementia, unspecified severity, without behavioral disturbance, psychotic disturbance, mood disturbance, and anxiety; E03.9 Hypothyroidism, unspecified; I10 Essential (primary) hypertension; D72.829 Elevated white blood cell count, unspecified; R00.0 Tachycardia, unspecified; K57.90 Diverticulosis of intestine, part unspecified, without perforation or abscess without bleeding; E78.5 Hyperlipidemia, unspecified; F41.9 Anxiety disorder, unspecified; M25.571 Pain in right ankle and joints of right foot; K21.9 Gastro-esophageal reflux disease without esophagitis; S93.401A Sprain of unspecified ligament of right ankle, initial encounter; X58.XXXA Exposure to other specified factors, initial encounter; Z90.49 Acquired absence of other specified parts of digestive tract
CPT/HCPCS: 32555; 36415; 70450; 71045; 71250; 73502; 73610; 74176; 80048; 80053; 81001; 82042; 82150; 82945; 82948; 83615; 83690; 83735; 83880; 83986; 84157; 84311; 84443; 84478; 85025; 85610; 85730; 87040; 87070; 87075; 87077; 87086; 87088; 87186; 87205; 87426; 89051; 93005; 93306; 93970; 96361; 96365; 96375; 97110; 97116; 97161; 97166; 97530; 97535; 99285; A9270; C9803; G0378; J0131; J0692; J0696; J1650; J3370; J7030; J7040; U0003; U0005

== ENCOUNTER 2021-07-16 14:22 | Inpatient (IN) | payer MEDICARE, SELFPAY ==
[2021-07-16] VITALS (23 sets, daily range): BP systolic 105–141; BP diastolic 51–67; PULSE 86–111; RESP 13–46; TEMP 36.1–36.8; O2SAT 87–98; BMI 23.8
--- NOTE | ~2021-07-16 | US_ITS ---
EXAMINATION: US thoracentesis DATE: 07/19/2021 12:21 INDICATION: pleural effusion TECHNIQUE: The procedure and its risks, benefits, and alternatives were discussed with Elvira watkins. Potential risks discussed included bleeding, infection, and pneumothorax. She understood the risk s and agreed to proceed. The skin was prepped and draped in sterile fashion. 1% lidocaine was used fo r local anesthesia. Under ultrasound guidance, a 5 Fr catheter with trochar was advanced into the rig ht pleural effusion. Fluid was aspirated. The catheter was removed, and a dressing was applied. There were no immediate complications. FINDINGS: Ultrasound images demonstrate a right pleural effusion and the catheter within the fluid. IMPRESSION: 1. Successful ultrasound-guided thoracentesis yielding 50 mL of clear, yellow fluid. Reviewed, dictated and finalized at location A.
--- NOTE | ~2021-07-16 | CT_ITS ---
EXAMINATION: CTA chest PE protocol DATE: 07/16/2021 16:15 INDICATION: chest pain and dyspnea TECHNIQUE: Computed tomography angiography (CTA) of the chest was performed with 100 mL Omnipaque-350 intravenous contrast timed to evaluate the pulmonary arteries. Coronal maximum intensity projection 3D-reconstructions were created by the technologist. The dose-length product (DLP) was 320.63 mGy-cm. Automated exposure control and iterative reconstruction technique were employed. COMPARISON: 07/03/2021. FINDINGS: Study quality: Degraded by beam hardening artifact, atelectasis, and motion, such that subsegmental a nd non-occlusive segmental emboli could be missed. Pulmonary arteries: No pulmonary emboli detected. Thoracic aorta: Mild atherosclerosis. Lung parenchyma and airways: Bilateral atelectasis, near complete in the lower lobes. Thoracic inlet, axillae and chest wall: 18 mm hypodense left thyroid nodule. Bilateral axillary lymph adenopathy. Mediastinum: Scattered subcentimeter mediastinal nodes. Heart and pericardium: Aortic valve calcifications.Trace pericardial effusion, improved since the kuldip or. Coronary artery calcifications: Mild. Pleura: Large right and moderate left pleural effusions, measuring 20 Hounsfield units. Upper abdomen: Cholecystectomy. Splenomegaly. Bones: No acute osseous finding. IMPRESSION: Limited examination, without evidence of central or occlusive segmental pulmonary emboli. Large right and moderate left pleural effusions, with adjacent atelectasis. Bilateral axillary lymphadenopathy. Splenomegaly. 18 mm hypodense left thyroid nodule, this could be further evaluated with nonemergent, outpatient thyroid ultrasound. Reviewed, dictated and finalized at location K. IMPRESSION: Limited examination, without evidence of central or occlusive segmental pulmona ry emboli. Large right and moderate left pleural effusions, with adjacent atele ctasis. Bilateral axillary lymphadenopathy. Splenomegaly. 18 mm hypodense left thyroid nodule, this could be further evaluated with nonemergent, outpatient th yroid ultrasound.
--- NOTE | ~2021-07-16 | XR_ITS ---
EXAMINATION: [id number] DATE: 07/19/2021 12:01 INDICATION: Right pleural effusion status post thoracentesis. TECHNIQUE: A single frontal view of the chest was obtained. COMPARISON: Chest single view 07/16/2021 FINDINGS: There is a moderate-sized loculated right pleural effusion. There is a moderate-sized left pleural effusion. There are airspace opacities in all right lung zones and in left mid and lower lung zones. No pneumothorax. The heart size is normal. IMPRESSION: 1. Worsened moderate-sized loculated right pleural effusion. Stable moderate-sized left pleural effus ion. 2. Airspace opacities in right lung and left mid and lower lung zones with mild worsening on the righ t, consistent with atelectasis versus pneumonia. Reviewed, dictated and finalized at location A. IMPRESSION: 1. Worsened moderate-sized loculated right pleural effusion. Stable moderate-si zed left pleural effusion. 2. Airspace opacities in right lung and left mid and lower lung zones with mild worsening on the right, consistent with atelectasis versus pneumonia.
--- NOTE | ~2021-07-16 | XR_ITS ---
EXAMINATION: XR chest 1V portable Exam Date/Time: 07/16/2021 14:41 CDT CLINICAL HISTORY: hypoxia Comparison: X-ray chest 07/05/2021, CT chest abdomen and pelvis 07/03/2021. RESULT: Lines, tubes, and devices: Cholestatic clips. Lungs and pleura: Diffuse reticular pattern, extending to the periphery. Patchy airspace disease in the mid and lower lungs. Bilateral angle blunting. Cardiomediastinal silhouette: Stable cardiomediastinal silhouette. Other: No acute osseous or upper abdominal finding. IMPRESSION: Pulmonary edema with small bilateral effusions. Multifocal infection, including atypical/viral, could have a similar appearance. Reviewed, dictated and finalized at location K.
--- NOTE | 2021-07-16 14:27 | ECG_ITS ---
Measurements Intervals [place] Rate: 110 P: -18 WV: 146 QRS: 48 QRSD: 79 T: -19 QT: 340 QTc: 461 Interpretive Statements SINUS TACHYCARDIA LEFT ATRIAL ENLARGEMENT [-0.15mV P WAVE IN V1/V2] NONSPECIFIC T-WAVE ABNORMALITY ABNORMAL ECG COMPARED TO ECG 07/03/2021 12:51:10 NO SIGNIFICANT CHANGES Electronically Signed On 07-17-2021 13:53:36 CDT by Petar Acosta M.D.
--- NOTE | 2021-07-16 14:42 | ED.GENADULT ---
HPI - General Adult General Chief complaint: Shortness of Breath/Dyspnea Stated complaint: hypoxic Time Seen by Provider: 07/16/21 14:26 Source: old records reviewed History of Present Illness HPI narrative: Patient presents emergency department from home for hypoxia.. The patient was found to have an O2 saturation in the 70s by staff at the snf and had been placed on oxygen at that time however the oxygen can she be placed her on was empty when EMS arrived they placed the patient on 4 L nasal cannula with improvement of patient's oxygenation to the mid 90s patient states she has not been feeling short of breath she denies any fevers or chills or cough patient was recently admitted to the hospital for urinary tract infection she returned back to the snf and had recently been diagnosed with a blood clot in her left leg and had been started on Eliquis which she has been taking she denies having any chest pain Related Data Home Medications Medication Instructions Recorded Confirmed cholecalciferol (vitamin D3) 50 50 mcg PO DAILY 07/25/20 07/16/21 mcg (2,000 unit) capsule cetirizine [24Hour Allergy] 10 mg PO DAILY PRN 06/22/21 07/16/21 apixaban [Eliquis] 10 mg PO BID 07/16/21 07/16/21 omeprazole 40 mg PO DAILY 07/16/21 07/16/21 simvastatin 20 mg PO HS 07/16/21 07/16/21 Allergies Allergy/AdvReac Type Severity Reaction Status Date / Time No Known Allergies Allergy Verified 07/16/21 14:30 Review of Systems Review of Systems: Gen.: Denies fevers or chills ENT: Denies congestion Respiratory: See HPI CV: Denies chest pain or palpitations GI: Denies abdominal pain nausea, emesis or diarrhea Musculoskeletal: Denies back pain or muscle pain Neuro: Denies numbness, tingling, weakness or focal weakness Skin: Denies rash Except as documented, all other systems reviewed and negative PMFSH Past Medical History Medical History 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 Lives in own home with her daughter next door. Daughter is a durable power personal injury attorney for healthcare. The patient is listed as a full code. 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 Smoking status: Never smoker Second hand tobacco smoke exposure: Yes Alcohol intake: never Substance use: never Substance use type: does not use Spiritual care concerns: No Exam Narrative: APPEARANCE: No acute distress, nontoxic, resting in bed EYES: EOMI HEENT: Normocephalic, atraumatic, OMM RESPIRATORY: No respiratory distress coarse breath sounds are bilateral lung pastor no wheezing CARDIOVASCULAR: Tachycardic and regular without murmurs rubs or gallops. ABDOMINAL: Soft, nontender, nondistended, no rebound or guarding MUSCULOSKELETAl: Moves all extremities. No clubbing, cyanosis 3+ edema of the left lower extremity no edema of the right lower extremity. NEURO: Awake and alert. Following commands, speech normal, no focal deficits SKIN:: Warm, dry. No rashes lesions or abrasions PSYCHIATRIC: Normal affect/mood, Course Course Emergency Course: Reviewed old records the patient had persistent leukocytosis and tachycardia on her last visit at that time she had pleural effusions with a thoracentesis fluid been sent off the lab only showing elevated neutrophi
[2021-07-16 15:28] LABS: Basophils Absolute Auto 0.1 K/mm3 (0.0-0.1); Basophils Percent Auto 0.3 % (0.2-1.2); Eosinophils Absolute Auto 0.2 K/mm3 (0-0.3); Eosinophils Percent Auto 0.7 % (0-4.4); Hematocrit 34.1 % (37.0-47.0); Hemoglobin 9.9 g/dL (12.0-15.0); Immature Granulocyte Percent A 1.1 % (0-0.5); Lymphocytes Percent Auto 6.7 % (18.3-44.2); Mean Corpuscular Hemoglobin 24.3 pg (26-34); Mean Corpuscular Volume 83.6 fl (80-100); Mean Platelet Volume 9.1 fl (7.4-10.4); Monocytes Absolute Auto 1.6 K/mm3 (0.1-0.6); Monocytes Percent Auto 5.4 % (2.6-8.5); Neutrophils Absolute Auto 24.5 K/mm3 (1.3-6.7); Neutrophils Percent Auto 85.8 % (45.5-73.1); Platelet Count Result 705 k/mm3 (150-375); Red Blood Count 4.08 M/mm3 (4.2-5.4); Red Cell Distribution Width 14.8 % (11.5-14.5); White Blood Count 28.6 K/mm3 (4.5-10.0)
[2021-07-16 15:37] LABS: Hypochromasia 1+ (NORMAL); Lactic Acid Reflex 1.7 mmol/L (0.7-2.1); Ovalocytes 1+ (NORMAL); Platelet Estimate Increased (Adequate)
[2021-07-16 15:39] LABS: Alanine Aminotransferase 19 U/L (4-35); Albumin Level 2.8 g/dL (3.5-5.1); Alkaline Phosphatase 192 U/L (38-126); Anion Gap 3 mmol/L (8-16); Aspartate Amino Transferase 42 U/L (14-36); Bilirubin,Total 0.3 mg/dL (0.2-1.3); Blood Urea Nitrogen 15 mg/dL (7-17); Calcium 7.8 mg/dL (8.4-10.2); Carbon Dioxide 32 mmol/L (22-30); Chloride 102 mmol/L (98-107); Estimated CRCL calculation 44 ml/min; Estimated Glomerular Filt Rate > 60; Glucose 178 mg/dL (65-110); Potassium 3.7 mmol/L (3.4-5.0); Sodium 137 mmol/L (137-145)
[2021-07-16 15:50] LABS: NT Pro B Type Natriuretic Pept 2070 pg/mL (5-100); Troponin I < 0.012 ng/mL (0.000-0.034)
[2021-07-16 15:54] LABS: D Dimer 6.16 ug/mL (<0.48)
[2021-07-16 17:36] LABS: Add Urine Microscopic? YES; Appearance Urine Cloudy (Clear); Bilirubin Urine Negative (Negative); Blood Urine Negative (Negative); Color Urine Yellow (Yellow); Glucose Urine UA Negative (Negative); Ketones Urine Negative (Negative); Leukocyte Esterase Ur Negative LEU/UL (Negative); Mucus Urine Heavy /lpf; Nitrate Urine Negative (Negative); Protein Urine 1+ mg/dL (Negative); Squamous Epithelial Cell Urine Many /hpf (Few)
[2021-07-16 17:37] LABS: Specific Grav Ur 1.058 (1.001-1.035)
--- NOTE | 2021-07-16 18:53 | ADMGEN ---
This patient, Carolina Cruz, was admitted to IMU Room 214-01. Patient/family oriented to hospital policies and general routines including ID bracelet, bed and alarms, visiting hours, pain management, procedures, bathroom and other care routines, personal items, smoking policy, room service/diet, and visiting hours. Information on how to activate the Rapid Response Team has been discussed. Patient/Family are encouraged to report perceived risks to care and to ask questions if they do not understand what they are told or what they should do.
--- NOTE | 2021-07-16 18:56 | PM.IMHP ---
H&P: HPI History of Present Illness Date/Time: Patient was placed observation status for expected length of stay less than 23 hours for management, will plan to re-evaluate tomorrow for improvement. 07/16/21 18:56 Chief Complaint: Shortness of breath Narrative: Ms. Cruz is a 75-year-old female who presented to the emergency room from an extended care facility for hypoxia. Patient's daughter went to visit her mother today and noticed that her mother was wearing oxygen. Patient's daughter asses the staff why a the patient was wearing oxygen. Staff stated that patient was noted to have O2 saturations in the 70s when her vital signs were performed. The family then requested the patient be transferred to the hospital for further evaluation since she does not normally wear oxygen. Patient does have underlying dementia and is not able to give me a review of systems. When asked if she has trouble breathing she says she does not know. Patient was recently hospitalized for urinary tract infection was noted to have a pleural effusion and she underwent ultrasound-guided thoracentesis. The recent thoracentesis was performed on 07/05/2021. Patient is denying any complaints at this time. Patient was also recently noted to have a DVT to her left lower extremity. patient's daughter is at bedside states that patient's nurse noted patient's left lower extremity was swelling on Saturday. Patient underwent venous Doppler and it was noted the patient had a DVT to the left lower extremity. Patient was started on Eliquis at that time. Upon evaluation in emergency room patient underwent chest x-ray and CTA of the chest. CT of the chest shows Limited examination, without evidence of central or occlusive segmental pulmonary emboli. Large right and moderate left pleural effusions, with adjacent atelectasis. Bilateral axillary lymphadenopathy. Splenomegaly. 18 mm hypodense left thyroid nodule, this could be further evaluated with nonemergent, outpatient thyroid ultrasound. Patient has a known history of dementia, Silver's esophagus, diverticulosis, hypertension, GERD, hypothyroidism, and recent diagnosis of left lower extremity DVT. Review of Systems Review of Systems: Unable to sustain a full review of systems secondary to patient's clinical condition. 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 Lives in own home with her daughter next door. Daughter is a durable power curriculum manager for healthcare. The patient is listed as a full code. 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 Smoking status: Never smoker Second hand tobacco smoke exposure: Yes Alcohol intake: never Substance use: never Substance use type: does not use Spiritual care concerns: No Meds Home Medications and Allergies Home Medications Medication Instructions Recorded Confirmed Type acetaminophen [Mapap 650 mg PO Q4H PRN #30 tablet 02/15/20 06/22/21 Rx (acetaminophen)] cholecalciferol (vitamin D3) 50 50 mcg PO DAILY 07/25/20 06/22/21 History mcg (2,000 unit) capsule levothyroxine 50 mcg tablet 50 mcg PO DAILY #90 tablet 03/09/21 06/22/21 Rx donepezil 5 mg tablet 5 mg PO DAILY #90 tab
[2021-07-16] MEDS: SIMVASTATIN 20 MG TABLET PO (20:33)
[2021-07-17] VITALS (13 sets, daily range): BP systolic 113–139; BP diastolic 42–57; PULSE 83–109; RESP 18–30; TEMP 36.2–36.4; O2SAT 94–98
[2021-07-17 04:47] LABS: Hematocrit 31.3 % (37.0-47.0); Hemoglobin 9.2 g/dL (12.0-15.0); Mean Corpuscular HGB Conc 29.4 g/dl (32-36); Mean Corpuscular Hemoglobin 24.2 pg (26-34); Mean Corpuscular Volume 82.4 fl (80-100); Mean Platelet Volume 9.3 fl (7.4-10.4); Platelet Count Result 647 k/mm3 (150-375); Red Cell Distribution Width 14.9 % (11.5-14.5); White Blood Count 23.8 K/mm3 (4.5-10.0)
[2021-07-17 05:00] LABS: Alanine Aminotransferase 17 U/L (4-35); Albumin Level 2.7 g/dL (3.5-5.1); Alkaline Phosphatase 182 U/L (38-126); Anion Gap 5 mmol/L (8-16); Aspartate Amino Transferase 32 U/L (14-36); Bilirubin,Total 0.5 mg/dL (0.2-1.3); Blood Urea Nitrogen 14 mg/dL (7-17); Calcium 7.8 mg/dL (8.4-10.2); Carbon Dioxide 29 mmol/L (22-30); Chloride 104 mmol/L (98-107); Estimated CRCL calculation 48 ml/min; Estimated Glomerular Filt Rate > 60; Glucose 120 mg/dL (65-110); Potassium 3.4 mmol/L (3.4-5.0); Sodium 138 mmol/L (137-145)
[2021-07-17 05:26] LABS: Band Neutrophils Percent 2 % (0-6); Eosinophils Absolute Manual 0.23 K/mm3 (0.02-0.5); Eosinophils Percent Manual 1 % (0-4); Lymphocytes Absolute Manual 1.42 K/mm3 (1.1-4.5); Monocytes Absolute Manual 0.47 K/mm3 (0.1-0.90); Monocytes Percent Manual 2 % (3-9); Neutrophils Absolute Manual 21.65 K/mm3 (1.7-7.2); Neutrophils Percent Manual 89 % (46-73); Total Cells Counted 100
[2021-07-17 05:27] LABS: Platelet Estimate Increased (Adequate)
[2021-07-17 05:28] LABS: Anisocytosis 1+ (NORMAL); Poikilocytosis 1+ (NORMAL)
[2021-07-17] MEDS: LEVOTHYROXINE SODIUM 50 MCG TABLET PO (06:09)
[2021-07-17] MEDS: CHOLECALCIFEROL 1,000 UNITS TABLET 2000 UNITS PO (09:15)
[2021-07-17] MEDS: APIXABAN 5 MG TABLET 10 MG PO (09:15)
[2021-07-17] MEDS: DONEPEZIL HCL 5 MG TABLET PO (09:16)
[2021-07-17] MEDS: PANTOPRAZOLE 40 MG TABLET PO ×2 (09:16→21:19)
--- NOTE | 2021-07-17 10:21 | PM.IMPN ---
Progress Note: A&P Assessment and Plan (1) Pleural effusion: Code(s): J90 - Pleural effusion, not elsewhere classified Status: Acute Assessment and Plan: Patient with bilateral pleural effusion. Recently only had left-sided pleural effusion. Underwent left-sided thoracentesis on 07/05/2021. 300 mL of clear to light yellow fluid expressed. Pleural fluid analysis when reviewed is mostly transudative in nature however they culture did not show any bacteria was positive many wbc's. Cytology showed reactive mesothelial cells and acute and chronic inflammation with no malignant cells. This time she also has right-sided pleural effusion which was not present to this extent last admission. Some of these right-sided pleural effusion also appeared to be loculated. Discussed with the radiologist earlier today. She will need this tapped for further evaluation. Findings all indicate complicated loculated pleural effusion. Will start broad-spectrum antibiotic with vancomycin cefepime and azithromycin (for atypical coverage) Since she she is on Eliquis and it will be complex to get this tap accomplished. Windows Software Developer suggest switching to heparin drip to perform the tap She already received Eliquis at 9:00 a.m.. Will start heparin drip from [facility]. If able to do thoracentesis tomorrow, Will hold heparin prior to the procedure. Pleural fluid analysis studies ordered (2) Leukocytosis: Code(s): D72.829 - Elevated white blood cell count, unspecified Status: Acute Assessment and Plan: Patient continues to have a significant leukocytosis. On last admission patient did have a urinary tract infection and had a WBC count of 40,000. Patient did have mild improvement with a WBC count however on 07/05/2021 patient's white blood cell count was 21.9. WBC count on presentation is 28.6 and likely etiology is her infected pleural fluid. (3) DVT (deep venous thrombosis): Code(s): I82.409 - Acute embolism and thrombosis of unspecified deep veins of unspecified lower extremity Status: Acute Assessment and Plan: Patient was noted to have a DVT on Saturday or Saturday of this week per her daughter. Patient was placed on loading dose of Eliquis. Will continue with current dose until decision is made of when this medication needs to be held for any interventions. Extensive DVT in left lower extremity noted. Report obtained from the nursing facility and reviewed (4) Essential (primary) hypertension: Code(s): I10 - Essential (primary) hypertension Status: Chronic Assessment and Plan: Will resume patient's home medications once verified home medication list and adjust medications accordingly for optimal blood pressure control. (5) Dementia: Qualifiers: Dementia type: unspecified type Dementia behavioral disturbance: without behavioral disturbance Qualified Code(s): F03.90 - Unspecified dementia without behavioral disturbance Code(s): F03.90 - Unspecified dementia without behavioral disturbance Status: Chronic (6) Elevated brain natriuretic peptide (BNP) level: Code(s): R79.89 - Other specified abnormal findings of blood chemistry Status: Acute Assessment and Plan: Mildly elevated BNP at 6:00 p.m. on 07/04/2021. Will start gentle IV Lasix Additional Plan Discussed with Elvira daughter for the patient over the phone 07/17/2021 Subjective Date/time seen: 07/17/21 10:21 Interval history: HPI: Shortness of breath Narrative: Ms. Cruz is a 75-year-old female who presented to the emergency room from an extended care facility for hypoxia. Patient's daughter went to visit her mother today and noticed that her mother was wearing oxygen. Patient's daughter asses the staff why a the patient was wearing oxygen. Staff stated that patient was noted to have O2 saturations in the 70s when her vital signs were performed. The family then requested the patient be transf
[2021-07-17] MEDS: FUROSEMIDE INJ 40 MG/4 ML VIAL IV PUSH (12:41)
--- NOTE | 2021-07-17 12:57 | PDONCCN ---
HPI - Date of Consult Date/Time: 07/17/21 12:57 Requesting Physician: Javier Ellis MD Primary Care Provider: Mary Kay Durán MD - Consult Narrative Reason for consult: Leukocytosis and thrombocytosis Narrative: Carolina Cruz is a 75 year old female who was recently discharged from the hospital after having a thoracentesis done on July 05, 2021 at that then she was admitted to the hospital for UTI. She also has a history of dementia. She also has a history of left lower extremity DVT and has been on Eliquis. Came into the hospital with increasing shortness of breath along with tiredness and fatigue. He was found to be hypoxic. CT chest done on July 17 showed no PE but large right and moderate left pleural effusion with bilateral axillary lymphadenopathy and splenomegaly. CT chest abdomen and pelvis from July 03 showed mild mediastinal and bilateral axillary lymphadenopathy likely reactive. Doppler studies for June 24 showed patent bilateral lower extremity vein no evidence of DVT. Labs showed WBC count of 23 with hemoglobin of 9.2 and platelet of [id number]. Neutrophil was 89%. UA was positive for UTI. 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 Dementia Diverticulosis DVT (deep venous thrombosis) Essential (primary) hypertension GERD without esophagitis Hemorrhoids Hyperlipidemia Hypothyroid Pleural effusion Prediabetes Syncope and collapse Surgical History: Surgical History (Last Reviewed 07/08/21 @ 17:58 by Julia Dickson MD) History of colonoscopy Hx of cholecystectomy ~1999 Family History: Family History (Last Reviewed 07/08/21 @ 17:58 by Julia Dickson MD) Mother Heart disease Parkinson disease Father Heart disease Sibling Acute myocardial infarction Daughter Graves disease Grandparent Carcinoma of colon - Social History Social History: Social History (Last Reviewed 07/16/21 @ 15:15 by Dirk Tolentino DO) Alcohol Use: Alcohol intake: never Substance Use: Substance use: never Substance use type: does not use Others: Spiritual care concerns: No Smoking Status: Smoking status: Never smoker Second hand tobacco smoke exposure: Yes Meds Home Medications Medication Instructions Recorded Confirmed Type acetaminophen [Mapap 650 mg PO Q4H PRN #30 tablet 02/15/20 07/16/21 Rx (acetaminophen)] cholecalciferol (vitamin D3) 50 50 mcg PO DAILY 07/25/20 07/16/21 History mcg (2,000 unit) capsule levothyroxine 50 mcg tablet 50 mcg PO DAILY #90 tablet 03/09/21 07/16/21 Rx donepezil 5 mg tablet 5 mg PO DAILY #90 tablet 03/17/21 07/16/21 Rx cetirizine [24Hour Allergy] 10 mg PO DAILY PRN 06/22/21 07/16/21 History apixaban [Eliquis] 10 mg PO BID 07/16/21 07/16/21 History omeprazole 40 mg PO DAILY 07/16/21 07/16/21 History simvastatin 20 mg PO HS 07/16/21 07/16/21 History Allergies Allergy/AdvReac Type Severity Reaction Status Date / Time No Known Allergies Allergy Verified 07/16/21 14:30 Results - Labs CBC & Chem 7: 07/17/21 04:30 07/17/21 04:30 Labs: Short CBC 07/16/21 07/17/21 Range/Units 15:20 04:30 WBC 28.6 H 23.8 H (4.5-10.0) K/mm3 Hgb 9.9 L 9.2 L (12.0-15.0) g/dL Hct 34.1 L 31.3 L (37.0-47.0) % Plt Count 705 H 647 H (150-375) k/mm3 BMP 07/16/21 07/17/21 15:20 04:30 Sodium 137 138 Potassium 3.7 3.4 Chloride 102 104 Carbon Dioxide 32 H 29 BUN 15 14 Creatinine 0.70 0.60 L Glucose 178 H 120 H Calcium 7.8 L 7.8 L Cardiac Enzymes 07/16/21 Range/Units 15:20 Troponin I < 0.012 (0.000-0.034) ng/mL Liver Function 07/16/21 07/17/21 Range/Units 15:20 04:30 Total Bilirubin 0.3 0.5 (0.2-1.3) mg/dL AST
[2021-07-17 14:59] LABS: Iron 21 ug/dL (37-170)
[2021-07-17 15:03] LABS: Erythrocyte Sedimentation Rate 77 mm/hr (0-20)
[2021-07-17 15:09] LABS: Percent Iron Saturation 10 % (20-50)
[2021-07-17 15:12] LABS: CRP 32.7 mg/dL (<1.0)
[2021-07-17 15:46] LABS: Hematocrit 36.8 % (37.0-47.0); Hemoglobin 10.2 g/dL (12.0-15.0); Mean Corpuscular HGB Conc 27.7 g/dl (32-36); Mean Corpuscular Hemoglobin 24.1 pg (26-34); Mean Corpuscular Volume 86.8 fl (80-100); Mean Platelet Volume 9.2 fl (7.4-10.4); Platelet Count Result 688 k/mm3 (150-375); Red Blood Count 4.24 M/mm3 (4.2-5.4); Red Cell Distribution Width 15.2 % (11.5-14.5); White Blood Count 26.3 K/mm3 (4.5-10.0)
[2021-07-17 15:59] LABS: Eosinophils Absolute Manual 0.26 K/mm3 (0.02-0.5); Eosinophils Percent Manual 1 % (0-4); Lymphocytes Absolute Manual 1.05 K/mm3 (1.1-4.5); Neutrophils Percent Manual 95 % (46-73); Nucleated Red Blood Cells 1 %; Platelet Estimate Increased (Adequate); Total Cells Counted 100
[2021-07-17 16:01] LABS: INR 2.6; Prothrombin Time 26.9 Seconds (11.1-14.7)
[2021-07-17 16:03] LABS: Partial Thromboplastin Time 60.9 SECONDS (22.3-36.8)
--- NOTE | 2021-07-17 16:56 | PM.CNPUL ---
Assessment and Plan Assessment and plan (1) Pleural effusion: Onset Date: ~07/2021 Code(s): J90 - Pleural effusion, not elsewhere classified Status: Acute Assessment and Plan: She had a Left thoracentesis July 05 with 300 ml yellow transudative fluid removed, now has a new much larger Right pleural effusion with areas of loculation. There was no right sided effusion 12 days ago. The left effusion remains moderate. She is having Eliquis held for right sided thoracentesis. She is not able to provide adequate history with her dementia. Will wait for tap on the large right pleural effusion; she does not have symptoms that suggest a current infection. She has an elevated WBC 26.3 without fever. The cause of the effusion should be easier to determine after fluid analysis. Sometimes, 2-3 taps are needed to deter mine the cause. She is requiring low flow nasal cannula O2 to maintain adequate saturation. She has thickening of hands and feet with clubbing, suspicious for scleroderma. I ordered antibodies for this. History of Present Illness History of Present Illness Consult date: 07/18/21 Requesting physician: Javier Ellis MD Reason for consult: pleural effusion Chief complaint: Acute respiratory failure with hypoxia, bilateral Narrative: NEW: Carolina Cruz is a 75 year old female with a recent left transudative pleural effusion tapped July 05, now with a large new right pleural effusion with persistent left pleural effusion. Her Eliquis is being held for a thoracentesis and she is now on a heparin drip. Her lower extremity venous dopplers June 30, 2021 are negative for DVT. She had a Left cephalic clot on February 15, 2020. She has dementia, is pleasant, not able to provide some of the history. She has been readmitted with increased shortness of breath and fatigue. Her chest abdomen and pelvis CT June 24 shows bilateral axillary lymphadenopathy with splenomegaly. DATA * echo - 06/28/2021 at [place] 2. Left ventricular chamber dimension is normal. 3. Left ventricular systolic function is normal, estimated at 60-65%. 4. The left ventricular diastolic function is grade I diastolic dysfunction. 5. E/e' 11 is mildly elevated. 6. Global longitudinal strain is mildly abnormal at -16.4%. 7. There is trace tricuspid valve regurgitation. 8. There is trace pulmonic regurgitation. 9. There is small circumferential pericardial effusion. No cardiac tamponade. Review of Systems Review of Systems: She is unable to provide any meaningful ROS. 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 Lives in own home with her daughter next door. Daughter is a durable power transactional attorney for healthcare. The patient is listed as a full code. 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 Smoking status: Never smoker Second hand tobacco smoke exposure: Yes Alcohol intake: never Substance use: never Substance use type: does not use Spiritual care concerns: No Meds Home Medications and Allergies Home Medications Medication Instructions Donny
[2021-07-17] MEDS: SIMVASTATIN 20 MG TABLET PO (21:19)
[2021-07-17 21:57] LABS: Folic Acid 2.7 ng/mL (2.76->20)
[2021-07-17] MEDS: HEPARIN SOD/D5W 100 UNITS/ML 25,000 UNITS/250 ML BAG 9 UNITS IV CONT (22:17)
[2021-07-18] VITALS (15 sets, daily range): BP systolic 104–132; BP diastolic 40–76; PULSE 80–106; RESP 16–20; TEMP 36.2–37.4; O2SAT 95–99
[2021-07-18 05:00] LABS: Basophils Absolute Auto 0.1 K/mm3 (0.0-0.1); Basophils Percent Auto 0.4 % (0.2-1.2); Eosinophils Absolute Auto 0.2 K/mm3 (0-0.3); Eosinophils Percent Auto 1.1 % (0-4.4); Hematocrit 30.6 % (37.0-47.0); Hemoglobin 8.8 g/dL (12.0-15.0); Immature Granulocyte Absolute 0.23 K/mm3 (0.00-0.031); Lymphocytes Absolute Auto 1.82 K/mm3 (0.9-3.2); Lymphocytes Percent Auto 8.2 % (18.3-44.2); Mean Corpuscular HGB Conc 28.8 g/dl (32-36); Mean Corpuscular Hemoglobin 24.2 pg (26-34); Mean Corpuscular Volume 84.3 fl (80-100); Mean Platelet Volume 9.1 fl (7.4-10.4); Monocytes Percent Auto 4.4 % (2.6-8.5); Neutrophils Absolute Auto 18.9 K/mm3 (1.3-6.7); Neutrophils Percent Auto 84.9 % (45.5-73.1); Platelet Count Result 567 k/mm3 (150-375); Red Blood Count 3.63 M/mm3 (4.2-5.4); Red Cell Distribution Width 14.8 % (11.5-14.5); White Blood Count 22.2 K/mm3 (4.5-10.0)
[2021-07-18 05:10] LABS: Alanine Aminotransferase 20 U/L (4-35); Albumin Level 2.6 g/dL (3.5-5.1); Alkaline Phosphatase 187 U/L (38-126); Anion Gap 6 mmol/L (8-16); Aspartate Amino Transferase 37 U/L (14-36); Bilirubin,Total 0.4 mg/dL (0.2-1.3); Blood Urea Nitrogen 14 mg/dL (7-17); Calcium 7.6 mg/dL (8.4-10.2); Carbon Dioxide 30 mmol/L (22-30); Chloride 97 mmol/L (98-107); Estimated CRCL calculation 42 ml/min; Estimated Glomerular Filt Rate > 60; Glucose 117 mg/dL (65-110); Lactate Dehydrogenase 383 U/L (313-618); Magnesium 1.9 mg/dL (1.6-2.3); Potassium 3.2 mmol/L (3.4-5.0); Sodium 133 mmol/L (137-145)
[2021-07-18 06:02] LABS: Atypical Lymphocytes Present; Hypochromasia 1+ (NORMAL); Platelet Estimate Increased (Adequate)
[2021-07-18] MEDS: CHOLECALCIFEROL 1,000 UNITS TABLET 2000 UNITS PO (08:43)
[2021-07-18] MEDS: PANTOPRAZOLE 40 MG TABLET PO ×2 (08:43→20:36)
[2021-07-18] MEDS: FUROSEMIDE INJ 40 MG/4 ML VIAL IV PUSH (08:43)
[2021-07-18] MEDS: DONEPEZIL HCL 5 MG TABLET PO (08:43)
--- NOTE | 2021-07-18 09:48 | PCOTNOTE ---
Addendum entered by JASON Spivey 07/18/21 09:49: Disregard original note. Note created on wrong patient. Original Note: Attempted to see patient twice this am, however patient off floor for testing.
[2021-07-18 09:57] LABS: INR 2.1; Prothrombin Time 23.1 Seconds (11.1-14.7)
[2021-07-18 09:59] LABS: Partial Thromboplastin Time 88.1 SECONDS (22.3-36.8)
[2021-07-18] MEDS: POTASSIUM CHLORIDE 20 MEQ PACKET (FOR LIQUID) 40 MEQ PO (11:19)
[2021-07-18 12:12] LABS: Partial Thromboplastin Time 79.2 SECONDS (22.3-36.8)
--- NOTE | 2021-07-18 12:32 | PM.IMPN ---
Progress Note: A&P Assessment and Plan (1) Pleural effusion: Onset Date: ~07/2021 Code(s): J90 - Pleural effusion, not elsewhere classified Status: Acute Assessment and Plan: Patient with bilateral pleural effusion. Recently only had left-sided pleural effusion. Underwent left-sided thoracentesis on 07/05/2021. 300 mL of clear to light yellow fluid expressed. Pleural fluid analysis when reviewed is mostly transudative in nature however they culture did not show any bacteria was positive many wbc's. Cytology showed reactive mesothelial cells and acute and chronic inflammation with no malignant cells. This time she also has right-sided pleural effusion which was not present to this extent last admission. Some of these right-sided pleural effusion also appeared to be loculated. Discussed with the radiologist earlier today. She will need this tapped for further evaluation. Findings all indicate complicated loculated pleural effusion. Will start broad-spectrum antibiotic with vancomycin cefepime and azithromycin (for atypical coverage) Since she she is on Eliquis and it will be complex to get this tap accomplished. [facility] Technician suggest switching to heparin drip to perform the tap She already received Eliquis for at 9:00 a.m.. Will start heparin drip from [facility]. If able to do thoracentesis tomorrow, Will hold heparin prior to the procedure. Pleural fluid analysis studies ordered Anticipate thoracentesis to be performed after holding heparin once coagulopathy resolved due to Eliquis from yesterday. Likely later today or tomorrow coordinate with intervention Radiology. (2) Leukocytosis: Code(s): D72.829 - Elevated white blood cell count, unspecified Status: Acute Assessment and Plan: Patient continues to have a significant leukocytosis. On last admission patient did have a urinary tract infection and had a WBC count of 40,000. Patient did have mild improvement with a WBC count however on 07/05/2021 patient's white blood cell count was 21.9. WBC count on presentation is 28.6 and likely etiology is her infected pleural fluid. (3) DVT (deep venous thrombosis): Code(s): I82.409 - Acute embolism and thrombosis of unspecified deep veins of unspecified lower extremity Status: Acute Assessment and Plan: Patient was noted to have a DVT on Saturday or Saturday of this week per her daughter. Patient was placed on loading dose of Eliquis. Will continue with current dose until decision is made of when this medication needs to be held for any interventions. Extensive DVT in left lower extremity noted. Report obtained from the nursing facility and reviewed (4) Essential (primary) hypertension: Code(s): I10 - Essential (primary) hypertension Status: Chronic Assessment and Plan: Will resume patient's home medications once verified home medication list and adjust medications accordingly for optimal blood pressure control. (5) Dementia: Qualifiers: Dementia type: unspecified type Dementia behavioral disturbance: without behavioral disturbance Qualified Code(s): F03.90 - Unspecified dementia without behavioral disturbance Code(s): F03.90 - Unspecified dementia without behavioral disturbance Status: Chronic (6) Elevated brain natriuretic peptide (BNP) level: Code(s): R79.89 - Other specified abnormal findings of blood chemistry Status: Acute Assessment and Plan: Mildly elevated BNP at 6:00 p.m. on 07/04/2021. Will start gentle IV Lasix Additional Plan Discussed with Elvira daughter for the patient over the phone 07/17/2021 Subjective Date/time seen: 07/18/21 12:32 Interval history: HPI: Shortness of breath Narrative: Ms. Cruz is a 75-year-old female who presented to the emergency room from an extended care facility for hypoxia. Patient's daughter went to visit her mother today and noticed that her mother was wearing oxygen. Mikel
[2021-07-18] MEDS: SIMVASTATIN 20 MG TABLET PO (20:36)
[2021-07-18] MEDS: HEPARIN SOD/D5W 100 UNITS/ML 25,000 UNITS/250 ML BAG 9 UNITS IV CONT (20:42)
[2021-07-19] VITALS (18 sets, daily range): BP systolic 103–125; BP diastolic 45–97; PULSE 84–106; RESP 16–40; TEMP 36.1–36.4; O2SAT 91–99
[2021-07-19 05:01] LABS: Basophils Absolute Auto 0.1 K/mm3 (0.0-0.1); Basophils Percent Auto 0.2 % (0.2-1.2); Eosinophils Absolute Auto 0.1 K/mm3 (0-0.3); Eosinophils Percent Auto 0.6 % (0-4.4); Hematocrit 27.6 % (37.0-47.0); Hemoglobin 8.4 g/dL (12.0-15.0); Immature Granulocyte Absolute 0.29 K/mm3 (0.00-0.031); Immature Granulocyte Percent A 1.3 % (0-0.5); Lymphocytes Absolute Auto 1.74 K/mm3 (0.9-3.2); Lymphocytes Percent Auto 7.6 % (18.3-44.2); Mean Corpuscular HGB Conc 30.4 g/dl (32-36); Mean Corpuscular Hemoglobin 24.3 pg (26-34); Mean Corpuscular Volume 79.8 fl (80-100); Mean Platelet Volume 9.3 fl (7.4-10.4); Monocytes Absolute Auto 1.4 K/mm3 (0.1-0.6); Monocytes Percent Auto 6.1 % (2.6-8.5); Neutrophils Absolute Auto 19.2 K/mm3 (1.3-6.7); Neutrophils Percent Auto 84.2 % (45.5-73.1); Platelet Count Result 550 k/mm3 (150-375); Red Blood Count 3.46 M/mm3 (4.2-5.4); Red Cell Distribution Width 14.7 % (11.5-14.5); White Blood Count 22.8 K/mm3 (4.5-10.0)
[2021-07-19 05:12] LABS: INR 1.8; Prothrombin Time 20.5 Seconds (11.1-14.7)
[2021-07-19 05:13] LABS: Partial Thromboplastin Time 65.5 SECONDS (22.3-36.8)
[2021-07-19 05:24] LABS: Alanine Aminotransferase 17 U/L (4-35); Albumin Level 2.5 g/dL (3.5-5.1); Alkaline Phosphatase 179 U/L (38-126); Anion Gap 6 mmol/L (8-16); Aspartate Amino Transferase 29 U/L (14-36); Bilirubin,Total 0.6 mg/dL (0.2-1.3); Blood Urea Nitrogen 13 mg/dL (7-17); Calcium 7.2 mg/dL (8.4-10.2); Carbon Dioxide 33 mmol/L (22-30); Chloride 93 mmol/L (98-107); Estimated CRCL calculation 42 ml/min; Estimated Glomerular Filt Rate > 60; Glucose 123 mg/dL (65-110); Magnesium 1.8 mg/dL (1.6-2.3); Potassium 3.1 mmol/L (3.4-5.0); Sodium 132 mmol/L (137-145)
[2021-07-19] MEDS: HEPARIN SODIUM 5,000 UNITS/ML VIAL 2000 UNITS IV PUSH ×2 (06:15→20:13)
[2021-07-19] MEDS: LEVOTHYROXINE SODIUM 50 MCG TABLET PO (06:16)
[2021-07-19] MEDS: POTASSIUM CHLORIDE INJ 40 MEQ in SODIUM CHLORIDE 0.9% IV 500 ML 130 MEQ IVPB (09:07)
[2021-07-19] MEDS: FUROSEMIDE INJ 40 MG/4 ML VIAL IV PUSH ×2 (09:08→17:15)
--- NOTE | 2021-07-19 10:58 | PCSTNOTE ---
Therapist was notified that this patient will be undergoing a thoracentesis at approximately 11:30 this morning. Therapist will attempt Bedside Swallow Evaluation this afternoon, if possible.
--- NOTE | 2021-07-19 12:13 | PM.IMPN ---
Progress Note: A&P Additional Plan 75-year-old female who presented to the emergency room from an extended care facility for hypoxia. (1) B/L Pleural effusion: Recently only had left-sided pleural effusion. Underwent left-sided thoracentesis on 07/05/2021. 300 mL of clear to light yellow fluid expressed. Pleural fluid analysis when reviewed is mostly transudative in nature however they culture did not show any bacteria was positive many wbc's. Cytology showed reactive mesothelial cells and acute and chronic inflammation with no malignant cells. This time she also has right-sided pleural effusion which was not present to this extent last admission. Some of these right-sided pleural effusion also appeared to be loculated. Plan for thoracentesis today. c/w vanco+cefepime+Azithromycin Pleural fluid analysis studies ordered Monitor leucocytosis c/w lasix(increase to BID) Supplement potassium Appreciate pulmonary help (2)Acute embolism and thrombosis of unspecified deep veins of unspecified lower extremity Patient was noted to have a DVT Currently on Heparin drip, will switch to Eliquis in AM, thoracentesis is being done today (3) Essential (primary) hypertension: c/w home meds (4) Dementia: chronic and stable c/w aricept (5) Code:Modified (6) Dispo:pending improvement Time Spent With Patient Time with patient: 25 - 35 minutes Subjective Date/time seen: 07/19/21 12:13 ?swallowing difficulty, refuses to take oral potassium supplement Review of Systems Review of Systems: All systems reviewed & are unremarkable except as noted in HPI and below Constitutional: Constitutional: Reports fatigue and Reports weakness Eyes: Eyes: Reports no additional eye complaints ENT: Reports system reviewed and no additional complaints, except as documented Cardiovascular: Cardiovascular: Reports no additional cardiovascular complaints Respiratory: Respiratory: Reports dyspnea Gastrointestinal: Gastrointestinal: Reports no additional gastrointestinal complaints Exam Const: General: no acute distress HENMT: Mouth: Yes moist mucous membranes Eyes: EOM: EOMs intact bilaterally Neck: Neck: supple Resp: Other: decreased breath sounds B/L Cardio: Rate: regular rate Rhythm: regular rhythm GI: GI Palp: Yes Soft to palpation Auscultation: normal bowel sounds Extrem: Other: pedal edema present Objective Data Vital Signs Vital Signs: Vital Signs - 24 hr 07/18/21 14:00 07/18/21 16:00 07/18/21 18:55 Temperature 98.9 F Pulse Rate 104 H 99 94 Respiratory Rate 20 Blood Pressure 116/76 Pulse Oximetry 95 07/18/21 19:40 07/18/21 20:00 07/18/21 22:00 Temperature 97.2 F L Pulse Rate 105 H 96 99 Respiratory Rate 18 Blood Pressure 112/46 L Pulse Oximetry 96 96 07/18/21 23:57 07/19/21 00:00 07/19/21 02:00 Temperature 97.2 F L Pulse Rate 93 96 Respiratory Rate 16 Blood Pressure 105/48 L Pulse Oximetry 96 96 07/19/21 04:00 07/19/21 06:22 07/19/21 08:00 Temperature 97.4 F L 97 F L Pulse Rate 87 95 88 Respiratory Rate 16 24 H Blood Pressure 103/45 L 115/45 L Pulse Oximetry 99 96 07/19/21 08:05 07/19/21 10:00 07/19/21 11:05 Temperature 97.4 F L Pulse Rate 90 94 Respiratory Rate 18 Blood Pressure 103/46 L Pulse Oximetry 95 91 Intake/Output Intake/Output: Intake & Output 07/16/21 07/17/21 07/18/21 07/19/21 23:59 23:59 23:59 23:59 Intake Total 970 1460 200 Output Total 0 Balance 970 1460 200 Meds/Results Medications: Active Medications Generic Name Dose Route Start Last Admin Trade Name Freq PRN Reason Stop Dose Admin Acetaminophen 650 mg 07/16/21 19:56 Acetaminophen 325 Mg Tablet PO Q4H PRN Headache or pain 1-3 Donepezil HCl 5 mg 07/17/21 09:00 07/18/21 08:43 Donepezil Hcl 5 Mg Tablet PO 5 mg DAILY JUAN Administration Furosemide 40 mg 07/19/21 17:00 Furosemide Inj 40 Mg/4 Ml Vial IV PUSH
--- NOTE | 2021-07-19 12:20 | PCOTNOTE ---
Attempted OT treatment, patient is currently off the unit for procedure, will follow.
[2021-07-19 14:10] LABS: Appearance Pleural Fluid Hazy (Clear); Color Pleural Fluid Yellow (Colorless); Nucleated Cell Pleural Fluid 82 /uL (0-1000); Pleural fluid source Pleural fluid; RBC Pleural Fluid 882 /uL (0-0)
[2021-07-19 14:11] LABS: Lymphocytes Pleural Fluid 4 %; Macrophages Pleural Fluid 8 %; Mesothelial Cells Pleural Flui 1 %; Monocytes Pleural Fluid 4 %; Neutrophils Pleural Fluid 83 % (0-25)
--- NOTE | 2021-07-19 14:16 | WPDCDIQUERY2 ---
CDI Query Clarification Request 07/16 ER Physician documented: Clinical Impression: -Acute respiratory failure with hypoxia, Leukocytosis, Pleural effusion on right, Pleural effusion on left -HPI narrative: Patient presents emergency department from home for hypoxia.. The patient was found to have an O2 saturation in the 70s by staff at the senior care and had been placed on oxygen at that time however the oxygen can she be placed her on was empty when EMS arrived they placed the patient on 4 L nasal cannula with improvement of patient's oxygenation to the mid 90s patient states she has not been feeling short of breath she denies any fevers or chills or cough patient was recently admitted to the hospital for urinary tract infection . Please clarify if Diagnosis of Acute Respiratory Failure with Hypoxia has been ruled in, ruled out, or unable to determine. <Shweta Hawthorne - Last Filed: 07/19/21 14:26>
--- NOTE | 2021-07-19 16:04 | PCSTNOTE ---
Patient flat-out refused Bedside Swallow Evaluation this afternoon but will try again in the morning.
[2021-07-19 19:48] LABS: Partial Thromboplastin Time 61.8 SECONDS (22.3-36.8)
--- NOTE | 2021-07-19 22:19 | PM.PNPUL ---
Progress Note: A&P Assessment and Plan (1) Pleural effusion: Onset Date: ~07/2021 Code(s): J90 - Pleural effusion, not elsewhere classified Status: Acute Assessment and Plan: She had a Left thoracentesis July 05 with 300 ml yellow transudative fluid removed, now has a new much larger Right pleural effusion with areas of loculation. There was no right sided effusion when the left effusion appeared, so this is new over the last 13 days. The left effusion remains moderate. She had thoracentesis today 50 ml removed, mildly increased number of rbc suggesting from the procedure. WBC is a bit lower, 22.8K, no fever. The cause of the effusion should be easier to determine after additional fluid analysis. Sometimes, 2-3 taps are needed to deter mine the cause. She is requiring low flow nasal cannula O2 at 2 L /min to maintain adequate saturation. She has thickening of hands and feet with clubbing, suspicious for scleroderma. Subjective Date/time seen: 07/19/21 22:19 Carolina Cruz is a 75 year old female with a recent left transudative pleural effusion tapped July 05. Today she had her large right pleural effusion tapped with 50 ml of yellow fluid removed. This is a small amount, and the studies that have returned show nonspecific findings. 07/19/2021 50 ml hazy pleural fluid from Right thoracentesis; Cell count- 882 rbc, 82 wbc with 82% neutrophils. The chemistries are not back, and no pH is available. Her WBC remains elevated 22.8K, she has anemia H/H 8.4/27.6. She is using 2 L/min O2, saturation is 96%. Review of Systems Review of Systems: All systems reviewed & are unremarkable except as noted in HPI and below (HPI) Exam Narrative: GEN: Pleasant; resting. HEENT: pupils are equal, EOMI, symmetrical face; oral membranes are dry. NECK: Trachea is midline CHEST: Equal air entry, symmetric excursion, decreased breath sounds on both sides of her chest CV: Regular S1S2 no m/g/r ABD : (+) bowel sounds Extremities : She has clubbing on all her fingernails and toenails. Palms and soles are thickened. Fingers and toes are curled inward. Fingers are not able to extend completely. 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 No digital ischemia. Objective Data Vital Signs Vital Signs: Vital Signs - 24 hr 07/18/21 23:57 07/19/21 00:00 07/19/21 02:00 Temperature 36.2 C L Pulse Rate 93 96 Respiratory Rate 16 Blood Pressure 105/48 L Pulse Oximetry 96 96 07/19/21 04:00 07/19/21 06:22 07/19/21 08:00 Temperature 36.3 C L 36.1 C L Pulse Rate 87 95 88 Respiratory Rate 16 24 H Blood Pressure 103/45 L 115/45 L Pulse Oximetry 99 96 07/19/21 08:05 07/19/21 10:00 07/19/21 11:05 Temperature 36.3 C L Pulse Rate 90 94 Respiratory Rate 18 Blood Pressure 103/46 L Pulse Oximetry 95 91 07/19/21 12:00 07/19/21 12:16 07/19/21 12:17 Temperature Pulse Rate 94 91 95 Respiratory Rate 18 36 H 40 H Blood Pressure 115/54 L 112/53 L Pulse Oximetry 91 98 97 07/19/21 14:00 07/19/21 16:00 07/19/21 18:00 Temperature 36.4 C L Pulse Rate 97 94 97 Respiratory Rate 24 H Blood Pressure 125/97 H Pulse Oximetry 92 07/19/21 19:40 07/19/21 20:00 07/19/21 22:00 Temperature 36.4 C Pulse Rate 98 94 87 Respiratory Rate 18 Blood Pressure 114/74 Pulse Oximetry 94 94 Intake/Output Intake/Output: Intake & Output 07/16/21 07/17/21 07/18/21 07/19/21 23:59 23:59 23:59 23:59 Intake Total 970 1460 1170 Output Total 0 50 Balance 970 1460 1120 Meds/Results Medications: Active Medications Generic Name Dose Route Start Last Admin Trade Name Freq PRN Reason Stop Dose Admin Acetaminophen 650 mg 07/16/21 19:56 Acetaminophen 325 Mg Tablet PO Q4H PRN Headache or pain 1-3 Donepezil HCl 5 mg 07/17/21 09:00 07/19/21 12:50 Donepezil Hcl 5 Mg Tablet PO Not Given DAILY JUAN Rosario
[2021-07-20] VITALS (19 sets, daily range): BP systolic 101–138; BP diastolic 45–50; PULSE 76–112; RESP 16–18; TEMP 36.2–36.6; O2SAT 91–99
[2021-07-20] MEDS: HEPARIN SOD/D5W 100 UNITS/ML 25,000 UNITS/250 ML BAG 11 UNITS IV CONT (00:32)
[2021-07-20 02:10] LABS: Basophils Absolute Auto 0.1 K/mm3 (0.0-0.1); Basophils Percent Auto 0.3 % (0.2-1.2); Eosinophils Absolute Auto 0.1 K/mm3 (0-0.3); Eosinophils Percent Auto 0.4 % (0-4.4); Hemoglobin 8.6 g/dL (12.0-15.0); Immature Granulocyte Absolute 0.29 K/mm3 (0.00-0.031); Lymphocytes Absolute Auto 1.89 K/mm3 (0.9-3.2); Lymphocytes Percent Auto 6.8 % (18.3-44.2); Mean Corpuscular HGB Conc 29.7 g/dl (32-36); Mean Corpuscular Hemoglobin 24.2 pg (26-34); Mean Corpuscular Volume 81.7 fl (80-100); Mean Platelet Volume 9.3 fl (7.4-10.4); Monocytes Absolute Auto 1.3 K/mm3 (0.1-0.6); Monocytes Percent Auto 4.7 % (2.6-8.5); Neutrophils Absolute Auto 24.2 K/mm3 (1.3-6.7); Neutrophils Percent Auto 86.8 % (45.5-73.1); Platelet Count Result 517 k/mm3 (150-375); Red Blood Count 3.55 M/mm3 (4.2-5.4); Red Cell Distribution Width 14.6 % (11.5-14.5); White Blood Count 27.8 K/mm3 (4.5-10.0)
[2021-07-20 02:19] LABS: Estimated CRCL calculation 33 ml/min; Estimated Glomerular Filt Rate > 60; Magnesium 1.8 mg/dL (1.6-2.3)
[2021-07-20 02:58] LABS: Atypical Lymphocytes Present; Platelet Estimate Adequate (Adequate)
[2021-07-20 03:25] LABS: Partial Thromboplastin Time 91.9 SECONDS (22.3-36.8)
[2021-07-20] MEDS: diphenhydrAMINE HCl INJ 50 MG/ML VIAL 25 MG IV PUSH (04:38)
[2021-07-20] MEDS: FUROSEMIDE INJ 40 MG/4 ML VIAL IV PUSH ×2 (09:10→17:58)
--- NOTE | 2021-07-20 09:39 | PCSTNOTE ---
Please refer to the Bedside Swallow Evaluation in the EMR. Please note, silent aspiration cannot be ruled out at bedside.
[2021-07-20 13:07] LABS: Vancomycin Trough 11.7 ug/mL (10.0-20.0)
--- NOTE | 2021-07-20 15:17 | PM.IMPN ---
Progress Note: A&P Additional Plan 75-year-old female who presented to the emergency room from an extended care facility for hypoxia. (1) Acute respiratory failure with hypoxia+B/L Pleural effusion: Recently only had left-sided pleural effusion. Underwent left-sided thoracentesis on 07/05/2021. 300 mL of clear to light yellow fluid expressed. Pleural fluid analysis when reviewed is mostly transudative in nature however they culture did not show any bacteria was positive many wbc's. Cytology showed reactive mesothelial cells and acute and chronic inflammation with no malignant cells. S/p right sided thoracentesis yesterday 50 cc of fluid was removed c/w vanco+cefepime+Azithromycin Pleural fluid analysis studies ordered Monitor leucocytosis c/w lasix(increase to BID) Appreciate pulmonary help Connective tissue disorder affecting lung has been ordered, pending results (2)Acute embolism and thrombosis of unspecified deep veins of unspecified lower extremity Patient was noted to have a DVT Will start on Eliquis today (3) Essential (primary) hypertension: c/w home meds (4) Dementia: chronic and stable c/w aricept (5) Failure to thrive+Dysphagia: Refuses to est for most part Diet has been modified based on bedside swallow evaluation D/w daughter about it, no plans for PEG tube in future if she continues to refuse eating (6) Code:Modified (7) Dispo:pending improvement, poor halfway prognosis Subjective Date/time seen: 07/20/21 15:17 no major change clinically Refuses to eat most of the time Review of Systems Review of Systems: Review of Systems: All systems reviewed & are unremarkable except as noted in HPI and below Constitutional: Constitutional: Reports fatigue and Reports weakness Eyes: Eyes: Reports no additional eye complaints ENT: Reports system reviewed and no additional complaints, except as documented Cardiovascular: Cardiovascular: Reports no additional cardiovascular complaints Respiratory: Respiratory: Reports dyspnea Gastrointestinal: Gastrointestinal: Reports no additional gastrointestinal complaints Exam Narrative: Const: General: no acute distress, cachectic HENMT: Mouth: Yes moist mucous membranes Eyes: EOM: EOMs intact bilaterally Neck: Neck: supple Resp: Other: decreased breath sounds B/L Cardio: Rate: regular rate Rhythm: regular rhythm GI: GI Palp: Yes Soft to palpation Auscultation: normal bowel sounds Extrem: Other: pedal edema present Objective Data Vital Signs Vital Signs: Vital Signs - 24 hr 07/19/21 16:00 07/19/21 18:00 07/19/21 19:40 Temperature 97.5 F L 97.6 F Pulse Rate 94 97 98 Respiratory Rate 24 H 18 Blood Pressure 125/97 H 114/74 Pulse Oximetry 92 94 07/19/21 20:00 07/19/21 22:00 07/19/21 23:52 Temperature 97.5 F L Pulse Rate 94 87 84 Respiratory Rate 16 Blood Pressure 109/61 Pulse Oximetry 94 96 07/20/21 00:00 07/20/21 02:13 07/20/21 02:36 Temperature Pulse Rate 85 92 Respiratory Rate Blood Pressure Pulse Oximetry 96 99 07/20/21 04:00 07/20/21 04:45 07/20/21 06:00 Temperature 97.4 F L Pulse Rate 85 82 Respiratory Rate 16 Blood Pressure 101/45 L Pulse Oximetry 95 91 07/20/21 07:45 07/20/21 08:00 07/20/21 09:00 Temperature 97.6 F Pulse Rate 82 Respiratory Rate 18 Blood Pressure 103/50 L Pulse Oximetry 97 97 92 07/20/21 12:03 Temperature 97.6 F Pulse Rate 102 H Respiratory Rate 18 Blood Pressure 138/45 L Pulse Oximetry 95 Intake/Output Intake/Output: Intake & Output 07/17/21 07/18/21 07/19/21 07/20/21 23:59 23:59 23:59 23:59 Intake Total 970 1460 1170 300 Output Total 0 50 800 Balance 970 1460 1120 -500 Meds/Results Medications: Active Medications Generic Name Dose Route Start Last Admin Trade Name Aneeshq PRN Reason Stop Dose Admin Acetaminophen 650 mg 07/16/21 19:56 Acetaminophen 325 Mg Tablet PO Q4H PRN Headache or pain
[2021-07-20 16:34] LABS: Anion Gap 9 mmol/L (8-16); Blood Urea Nitrogen 15 mg/dL (7-17); Calcium 7.5 mg/dL (8.4-10.2); Carbon Dioxide 35 mmol/L (22-30); Chloride 87 mmol/L (98-107); Estimated CRCL calculation 33 ml/min; Estimated Glomerular Filt Rate > 60; Glucose 161 mg/dL (65-110); Potassium 2.8 mmol/L (3.4-5.0); Sodium 131 mmol/L (137-145)
--- NOTE | 2021-07-20 19:39 | PM.PNPUL ---
Progress Note: A&P Assessment and Plan (1) Pleural effusion: Onset Date: ~07/2021 Code(s): J90 - Pleural effusion, not elsewhere classified Status: Acute Assessment and Plan: She had a Left thoracentesis July 05 with 300 ml yellow transudative fluid removed, now has a new much larger Right pleural effusion with areas of loculation. There was no right sided effusion when the left effusion appeared, so this is new over the last 13 days. The left effusion remains moderate. She had thoracentesis 07/19/21; 50 ml removed, mildly increased number of rbc. and this might have been from the procedure. WBC still high, 27.8K. No fever. The cause of the effusion should be easier to determine after additional fluid analysis. Sometimes, 2-3 taps are needed to deter mine the cause. She is requiring low flow nasal cannula O2 at 2 L /min to maintain adequate saturation. She has thickening of hands and feet with clubbing, suspicious for scleroderma. PLAN: Continue to hold Eliquis and repeat thoracentesis. She is languishing; she is making no progress. She is on the struggle bus. Let's see if more fluid off can help her feel better. Subjective Date/time seen: 07/20/21 19:39 This 75 year old woman is seen in follow up after 50 ml thoracentesis was performed on the large right pleural effusion yesterday. She is really not looking great this evening. She has less energy, and her nurse says that she is not eating. She still has this large effusion on the right, and we do not have a good idea of the cause. I asked her nurse to hold the Eliquis in order to try another thoracentesis tomorrow, therapeutic to decrease her shortness of breath and decreased O2 need. Review of Systems Review of Systems: All systems reviewed & are unremarkable except as noted in HPI and below Exam Narrative: GEN: Tired. resting. not saying much. She is watching hockey on TV. HEENT: pupils are equal, EOMI, symmetrical face; oral membranes are dry. NECK: Trachea is midline CHEST: Equal air entry, symmetric excursion, decreased breath sounds on both sides of her chest CV: Regular S1S2 no m/g/r ABD : (+) bowel sounds Extremities : She has clubbing on all her fingernails and toenails. Palms and soles are thickened. Fingers and toes are curled inward. Fingers are not able to extend completely. She cannot socket puller with either hand. No digital ischemia. Objective Data Vital Signs Vital Signs: Vital Signs - 24 hr 07/19/21 19:40 07/19/21 20:00 07/19/21 22:00 Temperature 36.4 C Pulse Rate 98 94 87 Respiratory Rate 18 Blood Pressure 114/74 Pulse Oximetry 94 94 07/19/21 23:52 07/20/21 00:00 07/20/21 02:13 Temperature 36.4 C L Pulse Rate 84 85 92 Respiratory Rate 16 Blood Pressure 109/61 Pulse Oximetry 96 96 07/20/21 02:36 07/20/21 04:00 07/20/21 04:45 Temperature 36.3 C L Pulse Rate 85 Respiratory Rate 16 Blood Pressure 101/45 L Pulse Oximetry 99 95 91 07/20/21 06:00 07/20/21 07:45 07/20/21 08:00 Temperature 36.4 C Pulse Rate 82 82 85 Respiratory Rate 18 Blood Pressure 103/50 L Pulse Oximetry 97 97 07/20/21 09:00 07/20/21 10:00 07/20/21 12:00 Temperature Pulse Rate 93 95 Respiratory Rate Blood Pressure Pulse Oximetry 92 97 07/20/21 12:03 07/20/21 14:00 07/20/21 16:00 Temperature 36.4 C Pulse Rate 102 H 93 93 Respiratory Rate 18 Blood Pressure 138/45 L Pulse Oximetry 95 97 07/20/21 16:17 07/20/21 18:00 Temperature 36.6 C Pulse Rate 94 106 H Respiratory Rate 18 Blood Pressure 129/50 L Pulse Oximetry 93 Intake/Output Intake/Output: Intake & Output 07/17/21 07/18/21 07/19/21 07/20/21 23:59 23:59 23:59 23:59 Intake Total 970 1460 1170 1270 Output Total 0 50 2050 Balance 970 1460 1120 -780 Meds/Results Medications: Active Medications Generic Name Dose Route Start Last Admi
[2021-07-20 21:01] LABS: Scleroderma 70 Antibody <1.0
[2021-07-20] MEDS: POTASSIUM CHLORIDE INJ 40 MEQ in SODIUM CHLORIDE 0.9% IV 500 ML 130 MEQ IVPB (21:05)
[2021-07-21] VITALS (16 sets, daily range): BP systolic 111–121; BP diastolic 42–53; PULSE 79–112; RESP 18–20; TEMP 35.9–36.7; O2SAT 92–100
[2021-07-21] MEDS: POTASSIUM CHLORIDE INJ 40 MEQ in SODIUM CHLORIDE 0.9% IV 500 ML 130 MEQ IVPB (01:08)
[2021-07-21 06:01] LABS: Basophils Absolute Auto 0.1 K/mm3 (0.0-0.1); Basophils Percent Auto 0.3 % (0.2-1.2); Eosinophils Absolute Auto 0.1 K/mm3 (0-0.3); Eosinophils Percent Auto 0.3 % (0-4.4); Immature Granulocyte Absolute 0.39 K/mm3 (0.00-0.031); Immature Granulocyte Percent A 1.4 % (0-0.5); Lymphocytes Absolute Auto 1.84 K/mm3 (0.9-3.2); Lymphocytes Percent Auto 6.6 % (18.3-44.2); Mean Corpuscular Volume 82.7 fl (80-100); Mean Platelet Volume 9.6 fl (7.4-10.4); Monocytes Absolute Auto 1.4 K/mm3 (0.1-0.6); Monocytes Percent Auto 5.1 % (2.6-8.5); Neutrophils Percent Auto 86.3 % (45.5-73.1); Platelet Count Result 590 k/mm3 (150-375); Red Blood Count 3.75 M/mm3 (4.2-5.4); Red Cell Distribution Width 14.9 % (11.5-14.5); White Blood Count 27.8 K/mm3 (4.5-10.0)
[2021-07-21 06:02] LABS: Alanine Aminotransferase 12 U/L (4-35); Albumin Level 2.7 g/dL (3.5-5.1); Alkaline Phosphatase 188 U/L (38-126); Anion Gap 6 mmol/L (8-16); Aspartate Amino Transferase 24 U/L (14-36); Bilirubin,Total 0.7 mg/dL (0.2-1.3); Blood Urea Nitrogen 16 mg/dL (7-17); Calcium 7.7 mg/dL (8.4-10.2); Carbon Dioxide 36 mmol/L (22-30); Chloride 92 mmol/L (98-107); Estimated CRCL calculation 30 ml/min; Estimated Glomerular Filt Rate 54; Glucose 112 mg/dL (65-110); Magnesium 1.7 mg/dL (1.6-2.3); Potassium 4.5 mmol/L (3.4-5.0); Sodium 134 mmol/L (137-145)
[2021-07-21] MEDS: LEVOTHYROXINE SODIUM 50 MCG TABLET PO (06:21)
[2021-07-21 07:51] LABS: Platelet Estimate Increased (Adequate)
[2021-07-21 07:52] LABS: Hypochromasia 1+ (NORMAL)
[2021-07-21] MEDS: FUROSEMIDE INJ 40 MG/4 ML VIAL IV PUSH ×2 (08:33→18:19)
--- NOTE | 2021-07-21 10:14 | PM.IMPN ---
Progress Note: A&P Additional [facility] [place] [id number] Hospitalist Progress NoteSigned Patient: Carolina Cruz EMR#: [id number]: 4Acct:[id number]/Sex: 75 / FADM Date: 07/18/21Loc: [id number] Dr: Javier Ellis MD cc: ~ 75-year-old female who presented to the emergency room from an extended care facility for hypoxia. (1) Acute respiratory failure with hypoxia+ B/L Pleural effusion: Recently only had left-sided pleural effusion. Underwent left-sided thoracentesis on 07/05/2021. 300 mL of clear to light yellow fluid expressed. Pleural fluid analysis when reviewed is mostly transudative in nature however they culture did not show any bacteria was positive many wbc's. Cytology showed reactive mesothelial cells and acute and chronic inflammation with no malignant cells. S/p right sided thoracentesis on 07/19/2021. 50 cc of fluid was removed c/w vanco+cefepime+Azithromycin Pleural fluid analysis studies ordered Monitor leucocytosis c/w lasix BID daughter canceled the thoracentesis scheduled for today. Appreciate pulmonary help Connective tissue disorder affecting lung has been ordered, pending results morphien PRN. (2)Acute embolism and thrombosis of unspecified deep veins of unspecified lower extremity Patient was noted to have a DVT on Eliquis but it is being held per pulmonology. (3) Essential (primary) hypertension: c/w home meds (4) Dementia: chronic and stable c/w aricept (5) Failure to thrive+Dysphagia: Refuses to est for most part Diet has been modified based on bedside swallow evaluation previous hospitalist discussed with her daughter about it, no plans for PEG tube in future if she continues to refuse eating. (6) Acute encephalopathy: -related to dementia and to undiagnosed ongoing process. -replies ok to everything. -re-orient daily. -fall precautions. (7) Code: DNR DNI (8) Goals of care: being discussed by HCPOA and the rest of the family. (9) Dispo:pending improvement, poor shelter prognosis Time Spent With Patient Time with patient: 15 - 25 minutes Subjective Date/time seen: 07/21/21 10:14 Daughter cancelled the thoracentesis scheduled for today, stating she just wants the patient to be comfortable and asked for pain medication. Patient seen lying in bed, responds ok to everything and all questions. Her daughter who is HCPOA was present at bedside, case was discussed and all questions were answered. Daughter changed the code status to DNR-DNI and said that she will be discussing the goals of care with the rest of the family regarding comfort care. Exam Const: Orientation/consciousness: confusion Limitations: altered mental status Resp: Effort & Inspection: normal respiratory effort, no audible wheezes and no cough Auscultation: diminished lung sounds Cardio: Rate: regular rate Heart sounds: S1 normal heart sound present and S2 normal heart sound present GI: Auscultation: normoactive bowel sounds Extrem: General: normal exam except as noted Objective Data Vital Signs Vital Signs: Vital Signs - 24 hr 07/20/21 12:00 07/20/21 12:03 07/20/21 14:00 Temperature 97.6 F Pulse Rate 95 102 H 93 Respiratory Rate 18 Blood Pressure 138/45 L Pulse Oximetry 97 95 07/20/21 16:00 07/20/21 16:17 07/20/21 18:00 Temperature 97.8 F Pulse Rate 93 94 106 H Respiratory Rate 18 Blood Pressure 129/50 L Pulse Oximetry 97 93 07/20/21 19:46 07/20/21 20:00 07/20/21 22:00 Temperature 97.1 F L Pulse Rate 103 H 108 H 99 Respiratory Rate 18 Blood Pressure 114/49 L Pulse Oximetry 93 94 07/21/21 00:00 07/21/21 02:00 07/21/21 04:00 Temperature 98.1 F 96.9 F L Pulse Rate 112 H 90 93 Respiratory Rate 20 18 Blood Pressure 118/51 L 111/44 L Pulse Oximetry 94 92 07/21/21 06:00 07/21/21 08:00 07/21/21 08:20 Temperature 97.5 F L Pulse Rate 89 82 Respiratory Rate 18 Blood Pressure 118/45 L Pulse
--- NOTE | 2021-07-21 11:31 | PM.PNPUL ---
Progress Note: A&P Assessment and Plan (1) Pleural effusion: Onset Date: ~07/2021 Code(s): J90 - Pleural effusion, not elsewhere classified Status: Acute Assessment and Plan: Daughter Elvira is changing her code status, and I will sign off. This is appropriate with her deterioration. Cancel right thoracentesis. Subjective Date/time seen: 07/21/21 11:31 This 75 year old woman is seen in follow up for right pleural effusion. We planned to re-tap today however her daughter Elvira is here, and I spoke with her at the bedside. She has decided to make change the status to DNR, and does not want the repeat thoracentesis. I agree with this plan as the patient is much worse today, less responsive. Review of Systems Review of Systems: ROS unobtainable: Yes unobtainable due to medical condition Exam Narrative: GEN: Not talking. HEENT: mouth is open, oral membranes are dry. CHEST: Decreased breath sounds on both sides of her chest CV: Regular S1S2 no m/g/r ABD : (+) bowel sounds Extremities : She has clubbing on all her fingernails and toenails. Palms and soles are thickened. Fingers and toes are curled inward. Fingers are not able to extend completely. 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 No digital ischemia. Objective Data Vital Signs Vital Signs: Vital Signs - 24 hr 07/20/21 12:00 07/20/21 12:03 07/20/21 14:00 Temperature 36.4 C Pulse Rate 95 102 H 93 Respiratory Rate 18 Blood Pressure 138/45 L Pulse Oximetry 97 95 07/20/21 16:00 07/20/21 16:17 07/20/21 18:00 Temperature 36.6 C Pulse Rate 93 94 106 H Respiratory Rate 18 Blood Pressure 129/50 L Pulse Oximetry 97 93 07/20/21 19:46 07/20/21 20:00 07/20/21 22:00 Temperature 36.2 C L Pulse Rate 103 H 108 H 99 Respiratory Rate 18 Blood Pressure 114/49 L Pulse Oximetry 93 94 07/21/21 00:00 07/21/21 02:00 07/21/21 04:00 Temperature 36.7 C 36.1 C L Pulse Rate 112 H 90 93 Respiratory Rate 20 18 Blood Pressure 118/51 L 111/44 L Pulse Oximetry 94 92 07/21/21 06:00 07/21/21 08:00 07/21/21 08:20 Temperature 36.4 C L Pulse Rate 89 82 Respiratory Rate 18 Blood Pressure 118/45 L Pulse Oximetry 95 96 Intake/Output Intake/Output: Intake & Output 07/18/21 07/19/21 07/20/21 07/21/21 23:59 23:59 23:59 23:59 Intake Total 1460 1170 1520 1190 Output Total 50 2050 650 Balance 1460 1120 -530 540 Meds/Results Medications: Active Medications Generic Name Dose Route Start Last Admin Trade Name Freq PRN Reason Stop Dose Admin Acetaminophen 650 mg 07/16/21 19:56 Acetaminophen 325 Mg Tablet PO Q4H PRN Headache or pain 1-3 Apixaban 10 mg 07/20/21 21:00 07/21/21 08:19 Apixaban 5 Mg Tablet PO 07/27/21 09:01 Not Given Q12HR JUAN Apixaban 5 mg 07/27/21 21:00 Apixaban 5 Mg Tablet PO Q12HR JUAN Donepezil HCl 5 mg 07/17/21 09:00 07/21/21 08:19 Donepezil Hcl 5 Mg Tablet PO Not Given DAILY JUAN Furosemide 40 mg 07/19/21 17:00 07/21/21 08:33 Furosemide Inj 40 Mg/4 Ml Vial IV PUSH 40 mg BID JUAN Administration Cefepime HCl 1 gm in 50 mls @ 100 mls/hr 07/17/21 12:00 07/21/21 01:28 Maxipime 1 Gm/D5w 50 Ml IVPB Infused Q12H JUAN Infusion Azithromycin 500 mg in 250 mls @ 250 mls/hr 07/17/21 18:00 07/20/21 19:00 Zithromax IVPB 07/21/21 18:59 Infused Q24H JUAN Infusion Vancomycin HCl 1,000 mg in 250 mls @ 250 mls/hr 07/20/21 14:00 07/21/21 08:32 Vancomycin 1,000 Mg/D5w 250 Ml IVPB 250 mls/hr Q18H JUAN Administration Magnesium Sulfate 2 gm in 50 mls @ 50 mls/hr 07/21/21 11:16 Magnesium Sulf 2 Gm/Water 50ml IVPB 07/21/21 12:15 ONCE ONE Levothyroxine Sodium 50 mcg 07/17/21 06:30 07/21/21 06:21 Levothyroxine Sodium 50 Mcg Tablet PO 50 mcg DAILY@0630 JUAN Administration Loratadine 10 mg 07/16/21 20:06 Loratadine 10 Mg T
[2021-07-21] MEDS: MORPHINE SULFATE (*CRX) 2 MG/ML INJ IV PUSH ×2 (11:45→18:15)
[2021-07-21] MEDS: MAGNESIUM SULF 2 GM/WATER 50ML 2 GM/50 ML BAG IVPB (11:45)
--- NOTE | 2021-07-21 14:29 | PCPTNOTE ---
PT held today due to patient's decline in medical status per RN.
[2021-07-21 14:52] LABS: BCR/abl Prior Result Not Given
[2021-07-21 15:38] LABS: BCR/abl P190 Not Detected; BCR/abl P210 Not Detected
[2021-07-21 15:39] LABS: BCR/abl P190 Chg YES; BCR/abl P210 Chg YES
[2021-07-21] MEDS: APIXABAN 5 MG TABLET 10 MG PO (21:36)
[2021-07-22] VITALS (15 sets, daily range): BP systolic 92–133; BP diastolic 35–89; PULSE 90–117; RESP 12–22; TEMP 35.9–37.2; O2SAT 89–100
[2021-07-22] MEDS: MORPHINE SULFATE (*CRX) 2 MG/ML INJ IV PUSH ×3 (00:35→10:07)
[2021-07-22 05:35] LABS: Estimated CRCL calculation 25 ml/min; Estimated Glomerular Filt Rate 44
[2021-07-22] MEDS: diphenhydrAMINE HCl INJ 50 MG/ML VIAL 25 MG IV PUSH (06:01)
[2021-07-22] MEDS: LEVOTHYROXINE SODIUM 50 MCG TABLET PO (06:04)
--- NOTE | 2021-07-22 08:46 | PM.IMPN ---
Progress Note: A&P Additional Plan 75-year-old female who presented to the emergency room from an extended care facility for hypoxia. (1) Acute respiratory failure with hypoxia+ B/L Pleural effusion: Recently only had left-sided pleural effusion. Underwent left-sided thoracentesis on 07/05/2021. 300 mL of clear to light yellow fluid expressed. Pleural fluid analysis when reviewed is mostly transudative in nature however they culture did not show any bacteria was positive many wbc's. Cytology showed reactive mesothelial cells and acute and chronic inflammation with no malignant cells. S/p right sided thoracentesis on 07/19/2021. 50 cc of fluid was removed c/w vanco+cefepime+Azithromycin Pleural fluid analysis studies ordered Monitor leucocytosis c/w lasix BID patient's daughter canceled the repeat thoracentesis scheduled on 07/21/2021. Appreciate pulmonary help Connective tissue disorder affecting lung has been ordered, pending results IV morphine PRN. (2)Acute embolism and thrombosis of unspecified deep veins of unspecified lower extremity Patient was noted to have a DVT on Eliquis but it is being held per pulmonology. (3) Essential (primary) hypertension: c/w home meds (4) Dementia: chronic and stable c/w aricept (5) Failure to thrive+Dysphagia: Refuses to est for most part Diet has been modified based on bedside swallow evaluation previous hospitalist discussed with her daughter about it, no plans for PEG tube in future if she continues to refuse eating. (6) Acute encephalopathy: -related to dementia and to undiagnosed ongoing process. -replies ok to everything. -re-orient daily. -fall precautions. (7) PAUL: creatinine elevated at 1.2 her baseline is 0.7 related to poor PO intake and failure to thrive. encourage PO intake. (8) Code: DNR DNI (8) Goals of care: patient was made comfort care by her Elvira her daughter/HCPOA at 11:17AM today, all acute treatment was discontinued. IV ativan, morphine and scopolamine PRN placed. (9) Dispo:pending improvement, although poor roasterman prognosis Time Spent With Patient Time with patient: 15 - 25 minutes Subjective Date/time seen: 07/22/21 08:46 Confused, intermittently screaming. Her daughter was at bedside, asked that some ativan be given and endorsed that she would like the placed to be switched to comfort care only. She also stated that she is also in contact with a hospice service already. Review of Systems Review of Systems: ROS unobtainable: Yes unobtainable due to medical condition Exam Const: General: confusion Cardio: Heart sounds: S1 normal heart sound present and S2 normal heart sound present GI: GI Palp: No abdominal tenderness and Yes Soft to palpation Skin: General skin exam: normal color Psych: Speech and movement: Psychomotor agitation in speech present Objective Data Vital Signs Vital Signs: Vital Signs - 24 hr 07/21/21 10:00 07/21/21 12:00 07/21/21 12:03 Temperature 97.9 F Pulse Rate 88 79 92 Respiratory Rate 18 Blood Pressure 121/53 L Pulse Oximetry 95 95 07/21/21 14:00 07/21/21 16:00 07/21/21 16:21 Temperature 96.7 F L Pulse Rate 92 94 98 Respiratory Rate 20 Blood Pressure 114/42 L Pulse Oximetry 95 98 07/21/21 18:00 07/21/21 20:00 07/21/21 22:00 Temperature 97.3 F L Pulse Rate 110 H 98 94 Respiratory Rate 18 Blood Pressure 112/44 L Pulse Oximetry 100 07/21/21 23:50 07/22/21 00:00 07/22/21 02:00 Temperature 97.2 F L Pulse Rate 97 97 93 Respiratory Rate 18 18 Blood Pressure 112/51 L Pulse Oximetry 100 100 07/22/21 03:57 07/22/21 04:00 07/22/21 05:58 Temperature 96.9 F L Pulse Rate 90 90 91 Respiratory Rate 16 16 Blood Pressure 133/66 Pulse Oximetry 100 100 07/22/21 08:01 07/22/21 08:03 Temperature 98.9 F Pulse Rate 117 H Respiratory Rate 20 Blood Pressure 117/89 Pulse Oximetry 94 95 Intake/Output Intake/Output: Intake & Output 07/19/2107/20
[2021-07-22] MEDS: FUROSEMIDE INJ 40 MG/4 ML VIAL IV PUSH (10:08)
--- NOTE | 2021-07-22 10:53 | PCOTNOTE ---
Patient in bed restless, agitated and moaning; family declined treatment for patient. Family stated patient received pain medication and reports exploring discharge home with hospice.
--- NOTE | 2021-07-22 14:08 | PCPTNOTE ---
Family declined treatment for Pt this date. Family also stated to be exploring discharge home with hospice.
[2021-07-22] MEDS: LORazepam INJ (*CRX) 2 MG/ML VIAL IV PUSH ×2 (15:03→23:23)
--- NOTE | 2021-07-22 16:57 | PC.NURSE ---
This patient, Carolina Cruz, was received from imu on 07/22/21 at 1630. Patient/family oriented to unit policies and routines
[2021-07-22] MEDS: SCOPOLAMINE 1.5 MG PATCH TRANSDERM (17:43)
[2021-07-23] MEDS: LORazepam INJ (*CRX) 2 MG/ML VIAL IV PUSH (05:10)
--- NOTE | 2021-07-23 09:36 | PM.IMPN ---
Progress Note: A&P Assessment and Plan (1) Pleural effusion: Onset Date: ~07/2021 Code(s): J90 - Pleural effusion, not elsewhere classified Status: Acute Assessment and Plan: Patient with bilateral pleural effusion. Recently only had left-sided pleural effusion. Underwent left-sided thoracentesis on 07/05/2021. 300 mL of clear to light yellow fluid expressed. Pleural fluid analysis when reviewed is mostly transudative in nature however they culture did not show any bacteria was positive many wbc's. Cytology showed reactive mesothelial cells and acute and chronic inflammation with no malignant cells. This time she also has right-sided pleural effusion which was not present to this extent last admission. Some of these right-sided pleural effusion also appeared to be loculated. Discussed with the radiologist earlier today. She will need this tapped for further evaluation. Findings all indicate complicated loculated pleural effusion. Treated with broad-spectrum antibiotic with vancomycin cefepime and azithromycin (for atypical coverage) Since she she is on Eliquis and it will be complex to get this tap accomplished. Family refused repeat thoracentesis and decided to proceed with comfort care Antibiotic was discontinued. (2) Leukocytosis: Code(s): D72.829 - Elevated white blood cell count, unspecified Status: Acute Assessment and Plan: Patient continues to have a significant leukocytosis. On last admission patient did have a urinary tract infection and had a WBC count of 40,000. Patient did have mild improvement with a WBC count however on 07/05/2021 patient's white blood cell count was 21.9. WBC count on presentation is 28.6 and likely etiology is her infected pleural fluid. Family refused repeat thoracentesis and decided to proceed with comfort care (3) DVT (deep venous thrombosis): Code(s): I82.409 - Acute embolism and thrombosis of unspecified deep veins of unspecified lower extremity Status: Acute Assessment and Plan: Eliquis (4) Essential (primary) hypertension: Code(s): I10 - Essential (primary) hypertension Status: Chronic Assessment and Plan: Currently patient has hypotension comfort care (5) Dementia: Qualifiers: Dementia type: unspecified type Dementia behavioral disturbance: without behavioral disturbance Qualified Code(s): F03.90 - Unspecified dementia without behavioral disturbance Code(s): F03.90 - Unspecified dementia without behavioral disturbance Status: Chronic Assessment and Plan: Comfort care (6) Elevated brain natriuretic peptide (BNP) level: Code(s): R79.89 - Other specified abnormal findings of blood chemistry Status: Acute Assessment and Plan: Mildly elevated BNP at 6:00 p.m. on 07/04/2021. Probably acute diastolic CHF exacerbation treated with IV diuresis comfort care Additional Plan Acute embolism and thrombosis of unspecified deep veins of unspecified lower extremity Patient was noted to have a DVT on Eliquis Failure to thrive+Dysphagia: Refuses to est for most part Diet has been modified based on bedside swallow evaluation previous hospitalist discussed with her daughter about it, no plans for PEG tube in future if she continues to refuse eating. Acute encephalopathy: -related to dementia and to undiagnosed ongoing process. -replies ok to everything. -re-orient daily. -fall precautions. PAUL: creatinine elevated at 1.2 her baseline is 0.7 related to poor PO intake and failure to thrive. encourage PO intake. Code: DNR DNI Goals of care: patient was made comfort care by her Elvira her daughter/HCPOA at 11:17AM today, all acute treatment was discontinued. IV ativan, morphine and scopolamine PRN placed. Currently under comfort care Subjective Date/time seen: 07/23/21 09:36 Interval history: HPI: Shortness of breath Narrative: Ms. Cruz is a 75-year-old
--- NOTE | 2021-07-23 10:00 | PCPTNOTE ---
Per RN discontinuing therapy on MD's request due to Pt being put on comfort measures per request of family.
--- NOTE | 2021-07-23 11:47 | PCOTNOTE ---
Per nursing report, patient on comfort measures effective this date.
--- NOTE | 2021-07-23 13:57 | PCPTNOTE ---
Discharge pt from PT services due to pt is comfort measures only.
[2021-07-23 20:03] VITALS: BP 108/36; PULSE 74; RESP 18; TEMP 36.6; O2SAT 91
[2021-07-24] MEDS: LORazepam INJ (*CRX) 2 MG/ML VIAL IV PUSH (01:53)
[2021-07-24 06:56] LABS: Amylase, Pleural Fluid 15 U/L; Glucose Pleural Fluid 65 mg/dL; LDH Pleural Fluid 443 U/L; Total Protein Pleural Fluid 3.2 g/dL
--- NOTE | 2021-07-24 13:47 | PM.IMPN ---
Progress Note: A&P Assessment and Plan (1) Comfort measures only status: Code(s): Z51.5 - Encounter for palliative care Status: Acute (2) Acute respiratory failure with hypoxia: Code(s): J96.01 - Acute respiratory failure with hypoxia Status: Acute (3) Dementia: Qualifiers: Dementia behavioral disturbance: without behavioral disturbance Dementia type: unspecified type Qualified Code(s): F03.90 - Unspecified dementia without behavioral disturbance Code(s): F03.90 - Unspecified dementia without behavioral disturbance Status: Acute (4) Failure to thrive: Status: Acute Additional Plan 75-year-old female who presented to the emergency room from an extended care facility for hypoxia. (1) Acute respiratory failure with hypoxia+B/L Pleural effusion: Patient was transitioned to comfort measures yesterday c/w O2 as needed Morphine and ativan as needed for comfort No labs, no tele (2)Acute embolism and thrombosis of unspecified deep veins of unspecified lower extremity No AC due to above (3) Failure to thrive+Dysphagia: transitioned to comfort measures (4) Code:Comfort measures only (5) Dispo:plan to discharge tomorrow AM to home with home hospice care Time Spent With Patient Time with patient: less than 15 minutes Subjective Date/time seen: 07/24/21 13:47 patient was transitioned to comfort measures yesterday Review of Systems Review of Systems: ROS unobtainable: Yes unobtainable due to medical condition and unobtainable due to mental status Exam Narrative: Const: General: no acute distress, cachectic, sleepy Neck: Neck: supple Resp: Other: decreased breath sounds B/L Cardio: Rate: regular rate Rhythm: regular rhythm GI: GI Palp: Yes Soft to palpation Auscultation: normal bowel sounds Extrem: Other: pedal edema present Objective Data Vital Signs Vital Signs: Vital Signs - 24 hr 07/23/21 20:03 Temperature 98 F Pulse Rate 74 Respiratory Rate 18 Blood Pressure 108/36 L Pulse Oximetry 91 Intake/Output Intake/Output: Intake & Output 07/21/21 07/22/21 07/23/21 07/24/21 23:59 23:59 23:59 23:59 Intake Total 1850 300 0 0 Output Total 1850 0 Balance 0 300 0 0 Meds/Results Medications: Active Medications Generic Name Dose Route Start Last Admin Trade Name Freq PRN Reason Stop Dose Admin Acetaminophen 650 mg 07/16/21 19:56 Acetaminophen 325 Mg Tablet PO Q4H PRN Headache or pain 1-3 Acetaminophen 650 mg 07/22/21 13:59 Acetaminophen 650 Mg Suppository RECTAL Q6H PRN Mild Pain (1-3) Fever IF NPO Docusate Sodium 100 mg 07/22/21 21:00 07/24/21 09:33 Docusate Sodium 100 Mg Capsule PO Not Given Q12HR JUAN Lorazepam 2 mg 07/22/21 13:58 07/24/21 01:53 Lorazepam Inj (*Crx) 2 Mg/Ml Vial IV PUSH 2 mg Q4H PRN Administration COMFORT Morphine Sulfate 2 mg 07/21/21 11:17 07/22/21 10:07 Morphine Sulfate (*Crx) 2 Mg/Ml Inj IV PUSH 2 mg Q4H PRN Administration Pain Rated 7-10 Scopolamine 1.5 mg 07/22/21 14:15 07/22/21 17:43 Scopolamine 1.5 Mg Patch TRANSDERM 1.5 mg Q72HR JUAN Administration Radiology Results: ITS Impressions Chest CTA 07/16/21 16:20 IMPRESSION: Limited examination, without evidence of central or occlusive segmental pulmonary emboli. Large right and moderate left pleural effusions, with adjacent atelectasis. Bilateral axillary lymphadenopathy. Splenomegaly. 18 mm hypodense left thyroid nodule, this could be further evaluated with nonemergent, outpatient thyroid ultrasound. ADDENDUM: 07/17/21 1046 Received phone call from hospitalist inquired about pleural loculations and transudate versus exudative appearance. There is evidence that the larger right-sided pleural effusion is loculated. No definite loculations on the left side. Chest X-Ray 07/19/21 12:21 IMPRESSION: 1. Worsened moderate-sized loculated right pleural eff
[2021-07-24 14:52] VITALS: BP 123/64; PULSE 129; RESP 18; TEMP 37; O2SAT 92
[2021-07-24 17:09] LABS: CALR Exon 9 Mutation Not Detected (Not Detected); CSF3R Exon 14/17 Mutation Not Detected (Not Detected); JAK2 Exon 12 Mutation Not Detected (Not Detected); JAK2 V617F Mutation Not Detected (Not Detected); MPL Exon 10 Mutation Not Detected (Not Detected); Specimen Source Not Given
[2021-07-24 20:13] VITALS: BP 140/57; PULSE 130; RESP 16; TEMP 37.3; O2SAT 93
--- NOTE | 2021-07-24 22:29 | PC.NURSE ---
Addendum entered by Marian Davidson RN 07/24/21 22:34: supervisor twisting department to the floor who agrees that since specimen collection date and time unknown then, lab is not relevant at this time. Original Note: Pt had a sample of pleural fluid sitting on her sink, 3rd Med RN sent fluid to lab and respiratory. Respiratory calls and states that PH is tested 3 times and all times is tested as too low to be read. There are no current orders for pleural fluid testing d/t pt being placed on comfort care on 07/23/21.
[2021-07-25] MEDS: SCOPOLAMINE 1.5 MG PATCH TRANSDERM (08:09)
[2021-07-25] MEDS: MORPHINE SULFATE (*CRX) 2 MG/ML INJ IV PUSH (08:10)
[2021-07-25] MEDS: LORazepam INJ (*CRX) 2 MG/ML VIAL IV PUSH (11:25)
--- NOTE | 2021-07-25 12:30 | PM.DS ---
DS: Admitting Diagnosis Discharge Date July 25, 2009 Admitting Diagnosis Respiratory failure secondary to pleural effusion. DS: Discharge Diagnosis Discharge Diagnosis (1) Failure to thrive: Status: Acute Assessment and Plan: Patient will be made comfort measures and will be placed on hospice (2) Comfort measures only status: Code(s): Z51.5 - Encounter for palliative care Status: Acute Assessment and Plan: Patient will be discharge on hospice (3) Pleural effusion: Onset Date: ~07/2021 Code(s): J90 - Pleural effusion, not elsewhere classified Status: Acute Assessment and Plan: Status post thoracentesis x2. Ongoing respiratory failure. (4) DVT (deep venous thrombosis): Code(s): I82.409 - Acute embolism and thrombosis of unspecified deep veins of unspecified lower extremity Status: Acute (5) Dementia: Qualifiers: Dementia behavioral disturbance: without behavioral disturbance Dementia type: unspecified type Qualified Code(s): F03.90 - Unspecified dementia without behavioral disturbance Code(s): F03.90 - Unspecified dementia without behavioral disturbance Status: Acute (6) Respiratory failure: Code(s): J96.90 - Respiratory failure, unspecified, unspecified whether with hypoxia or hypercapnia Status: Acute Assessment and Plan: Secondary to ? pneumonia and bilateral pleural effusions DS: Summary Hospital Course Hospital Course: Guille plan and diagnoses Time Spent with Patient Time attestation: Total time spent providing and/or coordinating discharge services: Greater than 30 min DS: Data Data Completed and Pending Completed studies during hospitalization: Pending at discharge 07/17/21 14:14 Cytology [PTH] Routine Labs on day of discharge: Labs from last 24 hours 07/17/21 13:52 CSF3R Ex 14 & 17 Mut Det Not detected JAK2 V617F Specimen Not given JAK2 V617F Gene Not Reportable JAK2 V617F Exon Not Reportable JAK2 V617F Mut Indic see below JAK2 V617F Mutation Not detected JAK2 V617F Mut Type Not Reportable JAK2 V617F Mut Freq Not Reportable JAK2 V617F Mut Reference Not Reportable JAK2 Exon 12 Mutation Not detected JAK2 12-15 Nucleotide Chg Not Reportable JAK2 12-15 Amino Acid Chg Not Reportable JAK2 Interpret/Report see below JAK2 V617F Comment See below Calreticulin Exon 9 Mut Not detected MPL Exon 10 Mutation Not detected Ref Lab Specimen ID Not given Discharge Plan Discharge Attending physician on discharge: Odell Toussaint Consulting providers: Kane Adams ; Sary Estrada Discharging Clinician: Odell Toussaint Patient Disposition: Hospice - Home Activity: no preference Diet: as tolerated Discharge Instructions: Please notify [facility] when patient leaves the facility to go home. ([phone]). Patient Instructions: Apixaban (By mouth), Deep Vein Thrombosis (DC), Pleural Effusion (DC) Stand Alone Forms: General Discharge Information Discharge Medications: Discontinued cholecalciferol (vitamin D3) 50 mcg (2,000 unit) capsule 50 mcg PO DAILY RF: 0 acetaminophen [Mapap (acetaminophen)] 325 mg Tablet 650 mg PO Q4H PRN (Reason: Headache or pain 1-3) Qty: 30 RF: 0 cetirizine [24Hour Allergy] 10 mg tablet 10 mg PO DAILY PRN (Reason: allergies) RF: 0 Eliquis 5 mg Tablet 10 mg PO BID RF: 0 omeprazole 40 mg capsule,delayed release(DR/EC) 40 mg PO DAILY RF: 0 simvastatin 20 mg tablet 20 mg PO HS RF: 0 levothyroxine 50 mcg tablet 50 mcg PO DAILY Qty: 90 RF: 1 donepezil 5 mg tablet 5 mg PO DAILY Qty: 90 RF: 3 Date of admission: 07/18/21 10:00 Primary Care Provider: Lauri Durán Admitting Provider: Odell Toussaint Attending physician on admission: Javier Ellis Condition: Stable Quality VTE Prophylaxis VTE prophylaxis: pharmacologic ordered
== END 2021-07-25 16:47 | disposition hospice, home (50) | DRG 186 ==
LOC: ANHED 17:52 → ANHIMU 18:42 → ANH3MED 07-22 16:25
PROVIDERS: Internal Medicine; Internal Medicine Critical Care Medicine; Internal Medicine Hematology & Oncology; Radiology Diagnostic Radiology; Admitting Provider Chiropractor; Emergency Provider Emergency Medicine; PCP Family Medicine; Visit Provider Internal Medicine
DX: J90 Pleural effusion, not elsewhere classified (principal); J96.01 Acute respiratory failure with hypoxia; J18.9 Pneumonia, unspecified organism; I50.31 Acute diastolic (congestive) heart failure; I82.402 Acute embolism and thrombosis of unspecified deep veins of left lower extremity; Z68.1 Body mass index [BMI] 19.9 or less, adult; G93.40 Encephalopathy, unspecified; N17.9 Acute kidney failure, unspecified; I11.0 Hypertensive heart disease with heart failure; D72.829 Elevated white blood cell count, unspecified; F03.90 Unspecified dementia, unspecified severity, without behavioral disturbance, psychotic disturbance, mood disturbance, and anxiety; K57.90 Diverticulosis of intestine, part unspecified, without perforation or abscess without bleeding; K21.9 Gastro-esophageal reflux disease without esophagitis; E78.5 Hyperlipidemia, unspecified; E03.9 Hypothyroidism, unspecified; R73.03 Prediabetes; R79.89 Other specified abnormal findings of blood chemistry; R13.10 Dysphagia, unspecified; Z90.49 Acquired absence of other specified parts of digestive tract; R62.7 Adult failure to thrive; Z66 Do not resuscitate; Z51.5 Encounter for palliative care
CPT/HCPCS: 32555; 36415; 51701; 71045; 71275; 80048; 80053; 80202; 81001; 81206; 81207; 81219; 81270; 81402; 81403; 81479; 82042; 82150; 82565; 82607; 82728; 82746; 82945; 83540; 83550; 83605; 83615; 83735; 83880; 84157; 84311; 84478; 84484; 85025; 85380; 85610; 85652; 85730; 86140; 86235; 87040; 88104; 88108; 88184; 88305; 89051; 92610; 93005; 96365; 96366; 96367; 96368; 96375; 96376; 97110; 97161; 97166; 97530; 97535; 99285; A9270; G0378; J0456; J0692; J1200; J1644; J1940; J2060; J2270; J3370; J3475; J3480; J7040; Q9967